=== PATIENT | female | born 1960 | race Caucasian/White ===

== ENCOUNTER 2017-04-30 11:09 | Emergency (ER) | payer OTHER ==
[~2017-04-30] VITALS: Ht 160 cm; Wt 68.0 kg
[~2017-04-30 11:09] MED LIST: ALBU90OI INH; BENZ100A PO; CHLO25 PO; CITA20; CLON.5; CLON1 PO; DIPH50 PO; DIVA250EC PO; DIVA500ER PO; Klonopin0.5 MG PO; LAMO25 PO; LEVSOD50 PO; LIOT25 PO; Mucinex600 MG PO; PRED20 PO; Prednisone20 MG PO; Zithromax250 MG PO; Zofran4 MG PO
[2017-04-30] MEDS ORDERED: Norco 5-325 Ta1 EACH PO (13:55)
[2017-04-30] MEDS ORDERED: Zofran Odt4 MG SL (13:55)
== END 2017-04-30 14:10 | disposition home or self-care (01) ==
LOC: ER 11:09
DX: S20.212A Contusion of left front wall of thorax, initial encounter (principal); S70.02XA Contusion of left hip, initial encounter; S00.83XA Contusion of other part of head, initial encounter; F10.20 Alcohol dependence, uncomplicated; F17.210 Nicotine dependence, cigarettes, uncomplicated; Z79.899 Other long term (current) drug therapy; Z79.52 Long term (current) use of systemic steroids; Z90.710 Acquired absence of both cervix and uterus; W19.XXXA Unspecified fall, initial encounter; Y92.009 Unspecified place in unspecified non-institutional (private) residence as the place of occurrence of the external cause
CPT/HCPCS: 70450; 71046; 72125; 99284

== ENCOUNTER → 2017-08-16 | Outpatient (CLI) | payer OTHER ==
[~2017-08-16] MED LIST changes: +Norco 5-325 Ta1 EACH PO; +Zofran Odt4 MG SL
[2017-08-16 12:17] LABS: BASOPHILS ABSOLUTE AUTO 0.09 K/mm3 (0.00-0.23); BASOPHILS PERCENT AUTO 1 % (0-2); EOSINOPHILS ABSOLUTE AUTO 0.15 K/mm3 (0.00-0.68); EOSINOPHILS PERCENT AUTO 2 % (0-6); Hematocrit 40.7 % (33.0-51.0); Hemoglobin 14.4 g/dL (11.5-16.0); IMMATURE GRAN ABSOLUTE AUTO 0.04 K/mm3 (0.00-0.10); IMMATURE GRAN PERCENT AUTO 1 % (0-1); LYMPHOCYTES ABSOLUTE AUTO 1.99 K/mm3 (0.84-5.20); LYMPHOCYTES PERCENT AUTO 23 % (21-46); MONOCYTES ABSOLUTE AUTO 0.57 K/mm3 (0.16-1.47); MONOCYTES PERCENT AUTO 7 % (4-13); Mean Corpuscular HGB 36.1 pg (26.0-34.0); Mean Corpuscular HGB Conc 35.4 g/dL (31.5-36.5); Mean Corpuscular Volume 102 fL (80-100); Mean Platelet Volume 10.1 fL (9.1-12.4); NEUTROPHILS ABSOLUTE AUTO 5.96 K/mm3 (1.96-9.15); NEUTROPHILS PERCENT AUTO 68 % (41-73); Platelet Count 308 K/mm3 (150-400); RDW Coefficient Variation 13.8 % (11.7-14.2); RDW Standard Deviation 51.8 fL (35.1-46.3); Red Blood Cell Count 3.99 M/mm3 (3.80-5.20)
[2017-08-16 12:39] LABS: Alanine Aminotransfer (ALT/SGP 88 U/L (12-78); Albumin, Blood 3.9 g/dL (3.4-5.0); Alk Phos 145 U/L (40-126); Anion Gap 14 mmol/L (6-16); Aspartate Aminotrans (AST/SGOT 142 U/L (12-37); Bilirubin, Total 0.8 mg/dL (0.1-1.0); Blood Urea Nitrogen 12 mg/dL (8-24); Bun/Creatinine Ratio 21.4 (12.0-20.0); CO2, Blood 25 mmol/L (21-32); Calcium, Blood 8.8 mg/dL (8.5-10.1); Chloride, Blood 102 mmol/L (98-108); Creatinine, Blood 0.56 mg/dL (0.40-1.00); Glomerular Filtration Rate >60 (60-); Glucose, Blood 116 mg/dL (70-99); Potassium, Blood 2.8 mmol/L (3.5-5.5); Sodium, Blood 141 mmol/L (136-145); Thyroid Stimulating Hormone 2.521 uIU/mL (0.360-4.800); Total Protein, Blood 7.9 g/dL (6.4-8.2)
== END | disposition home or self-care (01) ==
LOC: LAB EV 12:11 → LAB SHORT 12:11
PROVIDERS: Physician Assistant
DX: E03.9 Hypothyroidism, unspecified (principal)
CPT/HCPCS: 80053; 84443; 85025

== ENCOUNTER → 2017-12-09 | Outpatient (CLI) | payer OTHER ==
[2017-12-09 14:16] LABS: BASOPHILS PERCENT AUTO 2 % (0-2); EOSINOPHILS ABSOLUTE AUTO 0.06 K/mm3 (0.00-0.68); EOSINOPHILS PERCENT AUTO 1 % (0-6); Hematocrit 39.3 % (33.0-51.0); Hemoglobin 13.7 g/dL (11.5-16.0); IMMATURE GRAN ABSOLUTE AUTO 0.04 K/mm3 (0.00-0.10); IMMATURE GRAN PERCENT AUTO 1 % (0-1); LYMPHOCYTES ABSOLUTE AUTO 1.01 K/mm3 (0.84-5.20); LYMPHOCYTES PERCENT AUTO 19 % (21-46); MONOCYTES ABSOLUTE AUTO 0.27 K/mm3 (0.16-1.47); MONOCYTES PERCENT AUTO 5 % (4-13); Mean Corpuscular HGB 34.6 pg (26.0-34.0); Mean Corpuscular HGB Conc 34.9 g/dL (31.5-36.5); Mean Corpuscular Volume 99 fL (80-100); Mean Platelet Volume 10.4 fL (9.1-12.4); NEUTROPHILS ABSOLUTE AUTO 3.86 K/mm3 (1.96-9.15); NEUTROPHILS PERCENT AUTO 72 % (41-73); Platelet Count 212 K/mm3 (150-400); RDW Coefficient Variation 14.1 % (11.7-14.2); RDW Standard Deviation 51.4 fL (35.1-46.3); Red Blood Cell Count 3.96 M/mm3 (3.80-5.20); White Blood Cell Count 5.34 K/mm3 (4.00-11.30)
[2017-12-09 15:52] LABS: Albumin, Blood 4.5 g/dL (3.4-5.0); Albumin/Globulin Ratio 1.1 (0.8-1.8); Bilirubin, Total 1.1 mg/dL (0.1-1.0); Bun/Creatinine Ratio 28.2 (12.0-20.0); Calcium, Blood 8.8 mg/dL (8.5-10.1); Creatinine, Blood 1.03 mg/dL (0.40-1.00); Potassium, Blood 3.1 mmol/L (3.5-5.5); Total Protein, Blood 8.5 g/dL (6.4-8.2)
== END | disposition home or self-care (01) ==
LOC: LAB EV 14:12 → LAB SHORT 14:12
PROVIDERS: General Practice
DX: T50.905A Adverse effect of unspecified drugs, medicaments and biological substances, initial encounter (principal); J02.9 Acute pharyngitis, unspecified
CPT/HCPCS: 80053; 85025; 87070

== ENCOUNTER 2018-01-27 10:24 | Inpatient (IN) | payer OTHER ==
[~2018-01-27] VITALS: Ht 160 cm; Wt 52.5 kg
[2018-01-27 10:47] LABS: Hematocrit 26.7 % (33.0-51.0); Hemoglobin 9.5 g/dL (11.5-16.0); Mean Corpuscular HGB 40.1 pg (26.0-34.0); Mean Corpuscular HGB Conc 35.6 g/dL (31.5-36.5); Mean Corpuscular Volume 113 fL (80-100); Mean Platelet Volume 10.8 fL (9.1-12.4); NRBC ABSOLUTE 0.34 K/mm3 (0.00-0.02); NRBC Auto 1.4 /100 WBC (0.0-0.2); Platelet Count 436 K/mm3 (150-400); RDW Coefficient Variation 22.4 % (11.7-14.2); RDW Standard Deviation 88.2 fL (35.1-46.3); Red Blood Cell Count 2.37 M/mm3 (3.80-5.20); White Blood Cell Count 24.32 K/mm3 (4.00-11.30)
[2018-01-27 11:07] LABS: BAND PERCENT MAN 1 % (0-8); BASOPHILS PERCENT MAN 0 % (0-2); EOSINOPHILS PERCENT MAN 0 % (0-6); LYMPHOCYTES ABSOLUTE MAN 0.97 K/mm3 (0.84-5.20); LYMPHOCYTES PERCENT MAN 4 % (21-46); METAMYELOCYTE ABSOLUTE MAN 0.24 K/mm3 (0.00-0.00); METAMYELOCYTE PERCENT MAN 1 % (0-0); MONOCYTES ABSOLUTE MAN 0.97 K/mm3 (0.16-1.47); MONOCYTES PERCENT MAN 4 % (4-13); NEUTROPHILS ABSOLUTE MAN 22.13 K/mm3 (1.96-9.15); SEG NEUTROPHILS PERCENT MAN 90 % (41-73); TOTAL CELLS COUNTED 100
[2018-01-27 11:08] LABS: Alanine Aminotransfer (ALT/SGP 160 U/L (12-78); Albumin, Blood 3.1 g/dL (3.4-5.0); Albumin/Globulin Ratio 0.8 (0.8-1.8); Alk Phos 348 U/L (50-136); Anion Gap 22 mmol/L (6-16); Aspartate Aminotrans (AST/SGOT 386 U/L (12-37); Blood Urea Nitrogen 41 mg/dL (8-24); Bun/Creatinine Ratio 22.3 (12.0-20.0); CO2, Blood 23 mmol/L (21-32); Calcium, Blood 10.9 mg/dL (8.5-10.1); Chloride, Blood 84 mmol/L (98-108); Creatinine, Blood 1.84 mg/dL (0.40-1.00); Ethanol (Alcohol), Blood, Med <3 mg/dL; Globulin, Blood 3.8 g/dL (2.2-4.0); Glomerular Filtration Rate 30 (60-); Glucose, Blood 129 mg/dL (70-99); Potassium, Blood 2.8 mmol/L (3.5-5.5); Sodium, Blood 129 mmol/L (136-145); Total Protein, Blood 6.9 g/dL (6.4-8.2)
[2018-01-27 11:22] LABS: Bilirubin, Total 28.4 mg/dL (0.1-1.0)
[2018-01-27 11:29] LABS: Acetaminophen, Random <2.0 ug/mL (10.0-30.0); Salicylate <1.7 mg/dL (2.8-20.0)
[2018-01-27 12:38] LABS: Source, Urine Clean Catch
[2018-01-27 12:44] LABS: Blood, Urine 4+ (Neg); Glucose Qualitative, Urine Neg (Neg); Ketones, Urine 1+ (Neg); Leukocyte Esterase, Urine 2+ (Neg); Nitrite, Urine Neg (Neg); Protein, Urine 3+ (Neg); Urobilinogen, Urine 3+ (Normal)
[2018-01-27 12:52] LABS: Appearance, Urine Cloudy (Clear); Bilirubin, Urine 3+ (Neg); Color, Urine Amber (P-Yellow)
[2018-01-27 12:55] LABS: Squamous Epithelial Cells Few /hpf (Few); White Blood Cells, Urine 25-50 /hpf (0-5)
[2018-01-27 12:56] LABS: Bacteria Many /hpf
[2018-01-27 13:03] LABS: U Amphetamine Screen Not Detected; U Barbituate Screen Not Detected; U Benzodiazapine Screen Not Detected; U Buprenorphine Screen Not Detected; U Cannabinoids Screen Not Detected; U Cocaine Screen Not Detected; U Methadone Screen Not Detected; U Methamphetamine Screen Not Detected; U Opiates Screen Not Detected; U Oxycodone Screen Not Detected; U Phencyclidine Screen Not Detected; U Propoxyphene Screen Not Detected
[2018-01-27 15:38] LABS: Albumin, Blood 3.1 g/dL (3.4-5.0); Anion Gap 24 mmol/L (6-16); Blood Urea Nitrogen 42 mg/dL (8-24); CO2, Blood 21 mmol/L (21-32); Calcium, Blood 10.9 mg/dL (8.5-10.1); Chloride, Blood 84 mmol/L (98-108); Creatinine, Blood 1.75 mg/dL (0.40-1.00); Glomerular Filtration Rate 32 (60-); Glucose, Blood 125 mg/dL (70-99); Phosphorus, Blood 5.4 mg/dL (2.5-4.9); Potassium, Blood 2.9 mmol/L (3.5-5.5); Sodium, Blood 129 mmol/L (136-145)
[2018-01-27 16:07] LABS: PCO2 Arterial 36.8 mmHg (35-45); PO2 Arterial 68.4 mmHg (80-100); pH Blood Arterial 7.51 (7.35-7.45)
[2018-01-27 16:15] LABS: Hematocrit 23.5 % (33.0-51.0); Hemoglobin 8.5 g/dL (11.5-16.0)
[2018-01-27 16:36] LABS: Percent Saturation 86.5 % (15.0-50.0)
[2018-01-27 17:14] LABS: International Normalized Ratio 1.26; Prothrombin Time Results 12.8 Sec (9.7-11.5)
[2018-01-27 17:54] LABS: Albumin, Blood 2.7 g/dL (3.4-5.0); Albumin/Globulin Ratio 0.8 (0.8-1.8); Bun/Creatinine Ratio 26.1 (12.0-20.0); Calcium, Blood 9.3 mg/dL (8.5-10.1); Creatinine, Blood 1.57 mg/dL (0.40-1.00); Globulin, Blood 3.3 g/dL (2.2-4.0); Potassium, Blood 2.9 mmol/L (3.5-5.5)
[2018-01-27 17:58] LABS: Bilirubin, Total 23.4 mg/dL (0.1-1.0)
[2018-01-27 20:25] LABS: Albumin, Blood 2.5 g/dL (3.4-5.0); Anion Gap 14 mmol/L (6-16); Blood Urea Nitrogen 40 mg/dL (8-24); Bun/Creatinine Ratio 26.3 (12.0-20.0); CO2, Blood 27 mmol/L (21-32); Calcium, Blood 8.8 mg/dL (8.5-10.1); Chloride, Blood 92 mmol/L (98-108); Creatinine, Blood 1.52 mg/dL (0.40-1.00); Glomerular Filtration Rate 38 (60-); Glucose, Blood 79 mg/dL (70-99); Phosphorus, Blood 3.3 mg/dL (2.5-4.9); Potassium, Blood 2.9 mmol/L (3.5-5.5); Sodium, Blood 133 mmol/L (136-145)
[2018-01-28 03:54] LABS: BASOPHILS ABSOLUTE AUTO 0.07 K/mm3 (0.00-0.23); BASOPHILS PERCENT AUTO 0 % (0-2); EOSINOPHILS ABSOLUTE AUTO 0.12 K/mm3 (0.00-0.68); EOSINOPHILS PERCENT AUTO 1 % (0-6); Hematocrit 26.5 % (33.0-51.0); Hemoglobin 9.4 g/dL (11.5-16.0); IMMATURE GRAN ABSOLUTE AUTO 1.01 K/mm3 (0.00-0.10); IMMATURE GRAN PERCENT AUTO 5 % (0-1); LYMPHOCYTES ABSOLUTE AUTO 1.61 K/mm3 (0.84-5.20); LYMPHOCYTES PERCENT AUTO 8 % (21-46); MONOCYTES ABSOLUTE AUTO 0.78 K/mm3 (0.16-1.47); MONOCYTES PERCENT AUTO 4 % (4-13); Mean Corpuscular HGB 41.2 pg (26.0-34.0); Mean Corpuscular HGB Conc 35.5 g/dL (31.5-36.5); NEUTROPHILS ABSOLUTE AUTO 15.61 K/mm3 (1.96-9.15); NEUTROPHILS PERCENT AUTO 81 % (41-73); RDW Coefficient Variation 22.8 % (11.7-14.2); RDW Standard Deviation 90.5 fL (35.1-46.3); Red Blood Cell Count 2.28 M/mm3 (3.80-5.20)
[2018-01-28 04:03] LABS: Mean Corpuscular Volume 116 fL (80-100); Platelet Count 378 K/mm3 (150-400)
[2018-01-28 04:06] LABS: Albumin, Blood 2.5 g/dL (3.4-5.0); Albumin/Globulin Ratio 0.7 (0.8-1.8); Calcium, Blood 7.9 mg/dL (8.5-10.1); Creatinine, Blood 1.16 mg/dL (0.40-1.00); Globulin, Blood 3.5 g/dL (2.2-4.0); Potassium, Blood 4.2 mmol/L (3.5-5.5)
[2018-01-28 04:11] LABS: International Normalized Ratio 1.16; Prothrombin Time Results 11.8 Sec (9.7-11.5)
[2018-01-28 04:17] LABS: Bilirubin, Total 25.8 mg/dL (0.1-1.0)
[2018-01-28 04:52] LABS: PCO2 Arterial 49.1 mmHg (35-45); PO2 Arterial 117 mmHg (80-100); pH Blood Arterial 7.31 (7.35-7.45)
[2018-01-28 12:04] LABS: PCO2 Arterial 35.2 mmHg (35-45); PO2 Arterial 68.7 mmHg (80-100); pH Blood Arterial 7.47 (7.35-7.45)
[2018-01-28 12:27] LABS: Hematocrit 22.8 % (33.0-51.0); Hemoglobin 8.1 g/dL (11.5-16.0)
[2018-01-28 12:49] LABS: Albumin, Blood 2.5 g/dL (3.4-5.0); Anion Gap 12 mmol/L (6-16); Blood Urea Nitrogen 27 mg/dL (8-24); Bun/Creatinine Ratio 27.7 (12.0-20.0); CO2, Blood 25 mmol/L (21-32); Calcium, Blood 7.3 mg/dL (8.5-10.1); Chloride, Blood 98 mmol/L (98-108); Creatinine, Blood 0.98 mg/dL (0.40-1.00); Glomerular Filtration Rate >60 (60-); Glucose, Blood 132 mg/dL (70-99); Potassium, Blood 2.5 mmol/L (3.5-5.5); Sodium, Blood 135 mmol/L (136-145)
[2018-01-28 13:12] LABS: Phosphorus, Blood 0.4 mg/dL (2.5-4.9)
[2018-01-28 19:59] LABS: Albumin, Blood 2.5 g/dL (3.4-5.0); Anion Gap 12 mmol/L (6-16); Blood Urea Nitrogen 21 mg/dL (8-24); Bun/Creatinine Ratio 21.4 (12.0-20.0); CO2, Blood 27 mmol/L (21-32); Calcium, Blood 7.1 mg/dL (8.5-10.1); Chloride, Blood 96 mmol/L (98-108); Creatinine, Blood 0.98 mg/dL (0.40-1.00); Glomerular Filtration Rate >60 (60-); Glucose, Blood 106 mg/dL (70-99); Magnesium, Blood 1.5 mg/dL (1.6-2.4); Phosphorus, Blood 1.7 mg/dL (2.5-4.9); Sodium, Blood 135 mmol/L (136-145)
[2018-01-29 04:01] LABS: BASOPHILS PERCENT AUTO 1 % (0-2); EOSINOPHILS PERCENT AUTO 2 % (0-6); Hematocrit 23.8 % (33.0-51.0); Hemoglobin 8.5 g/dL (11.5-16.0); IMMATURE GRAN ABSOLUTE AUTO 1.72 K/mm3 (0.00-0.10); IMMATURE GRAN PERCENT AUTO 10 % (0-1); LYMPHOCYTES ABSOLUTE AUTO 1.57 K/mm3 (0.84-5.20); LYMPHOCYTES PERCENT AUTO 9 % (21-46); MONOCYTES ABSOLUTE AUTO 1.14 K/mm3 (0.16-1.47); MONOCYTES PERCENT AUTO 6 % (4-13); Mean Corpuscular HGB 41.5 pg (26.0-34.0); Mean Corpuscular HGB Conc 35.7 g/dL (31.5-36.5); Mean Corpuscular Volume 116 fL (80-100); Mean Platelet Volume 10.4 fL (9.1-12.4); NEUTROPHILS ABSOLUTE AUTO 12.94 K/mm3 (1.96-9.15); NEUTROPHILS PERCENT AUTO 73 % (41-73); NRBC ABSOLUTE 0.42 K/mm3 (0.00-0.02); NRBC Auto 2.4 /100 WBC (0.0-0.2); Platelet Count 358 K/mm3 (150-400); RDW Coefficient Variation 22.9 % (11.7-14.2); RDW Standard Deviation 92.5 fL (35.1-46.3); Red Blood Cell Count 2.05 M/mm3 (3.80-5.20); White Blood Cell Count 17.77 K/mm3 (4.00-11.30)
[2018-01-29 04:15] LABS: International Normalized Ratio 1.19; Prothrombin Time Results 12.1 Sec (9.7-11.5)
[2018-01-29 04:27] LABS: Alanine Aminotransfer (ALT/SGP 115 U/L (12-78); Albumin, Blood 2.3 g/dL (3.4-5.0); Albumin/Globulin Ratio 0.7 (0.8-1.8); Alk Phos 254 U/L (50-136); Anion Gap 13 mmol/L (6-16); Aspartate Aminotrans (AST/SGOT 282 U/L (12-37); Bilirubin, Total 23.7 mg/dL (0.1-1.0); Blood Urea Nitrogen 15 mg/dL (8-24); Bun/Creatinine Ratio 17.3 (12.0-20.0); CO2, Blood 25 mmol/L (21-32); Calcium, Blood 6.5 mg/dL (8.5-10.1); Chloride, Blood 98 mmol/L (98-108); Creatinine, Blood 0.87 mg/dL (0.40-1.00); Globulin, Blood 3.1 g/dL (2.2-4.0); Glomerular Filtration Rate >60 (60-); Glucose, Blood 112 mg/dL (70-99); Magnesium, Blood 1.9 mg/dL (1.6-2.4); Phosphorus, Blood 1.9 mg/dL (2.5-4.9); Potassium, Blood 2.6 mmol/L (3.5-5.5); Sodium, Blood 136 mmol/L (136-145); Total Protein, Blood 5.4 g/dL (6.4-8.2)
[2018-01-29 04:44] LABS: PCO2 Arterial 32.6 mmHg (35-45); PO2 Arterial 73.1 mmHg (80-100); pH Blood Arterial 7.51 (7.35-7.45)
[2018-01-29 05:27] LABS: BAND PERCENT MAN 11 % (0-8); BASOPHILS PERCENT MAN 0 % (0-2); EOSINOPHILS ABSOLUTE MAN 0.17 K/mm3 (0.00-0.68); EOSINOPHILS PERCENT MAN 1 % (0-6); LYMPHOCYTES ABSOLUTE MAN 1.59 K/mm3 (0.84-5.20); LYMPHOCYTES PERCENT MAN 9 % (21-46); MONOCYTES ABSOLUTE MAN 0.88 K/mm3 (0.16-1.47); MONOCYTES PERCENT MAN 5 % (4-13); MYELOCYTE ABSOLUTE MAN 0.35 K/mm3 (0.00-0.00); MYELOCYTE PERCENT MAN 2 % (0-0); NEUTROPHILS ABSOLUTE MAN 14.74 K/mm3 (1.96-9.15); SEG NEUTROPHILS PERCENT MAN 72 % (41-73); TOTAL CELLS COUNTED 100
[2018-01-30 03:41] LABS: Hematocrit 26.9 % (33.0-51.0); Hemoglobin 9.3 g/dL (11.5-16.0); Mean Corpuscular HGB 40.8 pg (26.0-34.0); Mean Corpuscular HGB Conc 34.6 g/dL (31.5-36.5); Mean Corpuscular Volume 118 fL (80-100); Mean Platelet Volume 10.2 fL (9.1-12.4); NRBC Auto 0.9 /100 WBC (0.0-0.2); Platelet Count 344 K/mm3 (150-400); RDW Coefficient Variation 23.6 % (11.7-14.2); RDW Standard Deviation 97.2 fL (35.1-46.3); Red Blood Cell Count 2.28 M/mm3 (3.80-5.20); White Blood Cell Count 21.19 K/mm3 (4.00-11.30)
[2018-01-30 04:04] LABS: BAND PERCENT MAN 6 % (0-8); BASOPHILS ABSOLUTE MAN 0.21 K/mm3 (0.00-0.23); BASOPHILS PERCENT MAN 1 % (0-2); EOSINOPHILS ABSOLUTE MAN 0.42 K/mm3 (0.00-0.68); EOSINOPHILS PERCENT MAN 2 % (0-6); LYMPHOCYTES ABSOLUTE MAN 1.48 K/mm3 (0.84-5.20); LYMPHOCYTES PERCENT MAN 7 % (21-46); METAMYELOCYTE ABSOLUTE MAN 0.42 K/mm3 (0.00-0.00); METAMYELOCYTE PERCENT MAN 2 % (0-0); MONOCYTES ABSOLUTE MAN 1.05 K/mm3 (0.16-1.47); MONOCYTES PERCENT MAN 5 % (4-13); MYELOCYTE ABSOLUTE MAN 0.42 K/mm3 (0.00-0.00); MYELOCYTE PERCENT MAN 2 % (0-0); NEUTROPHILS ABSOLUTE MAN 17.16 K/mm3 (1.96-9.15); SEG NEUTROPHILS PERCENT MAN 75 % (41-73); TOTAL CELLS COUNTED 100
[2018-01-30 04:05] LABS: International Normalized Ratio 1.16; Prothrombin Time Results 11.8 Sec (9.7-11.5)
[2018-01-30 04:18] LABS: Alanine Aminotransfer (ALT/SGP 95 U/L (12-78); Albumin, Blood 2.1 g/dL (3.4-5.0); Albumin/Globulin Ratio 0.6 (0.8-1.8); Alk Phos 236 U/L (50-136); Anion Gap 13 mmol/L (6-16); Aspartate Aminotrans (AST/SGOT 192 U/L (12-37); Bilirubin, Total 22.7 mg/dL (0.1-1.0); Blood Urea Nitrogen 7 mg/dL (8-24); Bun/Creatinine Ratio 9.3 (12.0-20.0); CO2, Blood 24 mmol/L (21-32); Calcium, Blood 6.2 mg/dL (8.5-10.1); Chloride, Blood 103 mmol/L (98-108); Creatinine, Blood 0.75 mg/dL (0.40-1.00); Globulin, Blood 3.4 g/dL (2.2-4.0); Glomerular Filtration Rate >60 (60-); Glucose, Blood 125 mg/dL (70-99); Phosphorus, Blood 1.9 mg/dL (2.5-4.9); Potassium, Blood 2.6 mmol/L (3.5-5.5); Sodium, Blood 140 mmol/L (136-145); Total Protein, Blood 5.5 g/dL (6.4-8.2)
[2018-01-30 13:38] LABS: Anion Gap 11 mmol/L (6-16); Blood Urea Nitrogen 7 mg/dL (8-24); CO2, Blood 24 mmol/L (21-32); Calcium, Blood 5.8 mg/dL (8.5-10.1); Chloride, Blood 102 mmol/L (98-108); Creatinine, Blood 0.78 mg/dL (0.40-1.00); Glomerular Filtration Rate >60 (60-); Glucose, Blood 103 mg/dL (70-99); Potassium, Blood 2.8 mmol/L (3.5-5.5); Sodium, Blood 137 mmol/L (136-145)
[2018-01-31 04:59] LABS: Hematocrit 26.3 % (33.0-51.0); Hemoglobin 8.9 g/dL (11.5-16.0); Mean Corpuscular HGB 40.1 pg (26.0-34.0); Mean Corpuscular HGB Conc 33.8 g/dL (31.5-36.5); Mean Corpuscular Volume 119 fL (80-100); Mean Platelet Volume 10.7 fL (9.1-12.4); NRBC ABSOLUTE 0.16 K/mm3 (0.00-0.02); NRBC Auto 0.9 /100 WBC (0.0-0.2); Platelet Count 294 K/mm3 (150-400); RDW Coefficient Variation 23.9 % (11.7-14.2); RDW Standard Deviation 98.8 fL (35.1-46.3); Red Blood Cell Count 2.22 M/mm3 (3.80-5.20); White Blood Cell Count 18.37 K/mm3 (4.00-11.30)
[2018-01-31 05:16] LABS: International Normalized Ratio 1.19; Prothrombin Time Results 12.1 Sec (9.7-11.5)
[2018-01-31 05:18] LABS: Alanine Aminotransfer (ALT/SGP 67 U/L (12-78); Albumin, Blood 1.7 g/dL (3.4-5.0); Albumin/Globulin Ratio 0.5 (0.8-1.8); Alk Phos 203 U/L (50-136); Anion Gap 11 mmol/L (6-16); Aspartate Aminotrans (AST/SGOT 117 U/L (12-37); Bilirubin, Total 19.9 mg/dL (0.1-1.0); Blood Urea Nitrogen 6 mg/dL (8-24); Bun/Creatinine Ratio 7.8 (12.0-20.0); CO2, Blood 22 mmol/L (21-32); Calcium, Blood 6.2 mg/dL (8.5-10.1); Chloride, Blood 108 mmol/L (98-108); Creatinine, Blood 0.77 mg/dL (0.40-1.00); Globulin, Blood 3.3 g/dL (2.2-4.0); Glomerular Filtration Rate >60 (60-); Glucose, Blood 99 mg/dL (70-99); Phosphorus, Blood 2.1 mg/dL (2.5-4.9); Potassium, Blood 3.1 mmol/L (3.5-5.5); Sodium, Blood 141 mmol/L (136-145)
[2018-01-31 05:33] LABS: BAND PERCENT MAN 9 % (0-8); BASOPHILS PERCENT MAN 0 % (0-2); EOSINOPHILS ABSOLUTE MAN 0.55 K/mm3 (0.00-0.68); EOSINOPHILS PERCENT MAN 3 % (0-6); LYMPHOCYTES ABSOLUTE MAN 0.91 K/mm3 (0.84-5.20); LYMPHOCYTES PERCENT MAN 5 % (21-46); METAMYELOCYTE ABSOLUTE MAN 0.73 K/mm3 (0.00-0.00); METAMYELOCYTE PERCENT MAN 4 % (0-0); MONOCYTES ABSOLUTE MAN 0.73 K/mm3 (0.16-1.47); MONOCYTES PERCENT MAN 4 % (4-13); MYELOCYTE ABSOLUTE MAN 0.36 K/mm3 (0.00-0.00); MYELOCYTE PERCENT MAN 2 % (0-0); NEUTROPHILS ABSOLUTE MAN 15.06 K/mm3 (1.96-9.15); SEG NEUTROPHILS PERCENT MAN 73 % (41-73); TOTAL CELLS COUNTED 100
[2018-01-31 09:35] LABS: Vancomycin, Trough 11.9 ug/mL (5.0-10.0)
[2018-01-31 20:46] LABS: Albumin, Blood 1.7 g/dL (3.4-5.0); Anion Gap 12 mmol/L (6-16); Blood Urea Nitrogen 6 mg/dL (8-24); Bun/Creatinine Ratio 8.2 (12.0-20.0); CO2, Blood 20 mmol/L (21-32); Calcium, Blood 7.3 mg/dL (8.5-10.1); Chloride, Blood 109 mmol/L (98-108); Creatinine, Blood 0.74 mg/dL (0.40-1.00); Glomerular Filtration Rate >60 (60-); Glucose, Blood 99 mg/dL (70-99); Magnesium, Blood 1.5 mg/dL (1.6-2.4); Phosphorus, Blood 2.6 mg/dL (2.5-4.9); Potassium, Blood 3.3 mmol/L (3.5-5.5); Sodium, Blood 141 mmol/L (136-145)
[2018-02-01 04:25] LABS: Hematocrit 26.8 % (33.0-51.0); Hemoglobin 8.9 g/dL (11.5-16.0); Mean Corpuscular HGB 40.1 pg (26.0-34.0); Mean Corpuscular HGB Conc 33.2 g/dL (31.5-36.5); Mean Corpuscular Volume 121 fL (80-100); Mean Platelet Volume 10.9 fL (9.1-12.4); NRBC ABSOLUTE 0.07 K/mm3 (0.00-0.02); NRBC Auto 0.4 /100 WBC (0.0-0.2); Platelet Count 293 K/mm3 (150-400); RDW Coefficient Variation 23.2 % (11.7-14.2); RDW Standard Deviation 100.5 fL (35.1-46.3); Red Blood Cell Count 2.22 M/mm3 (3.80-5.20); White Blood Cell Count 18.49 K/mm3 (4.00-11.30)
[2018-02-01 04:50] LABS: BAND PERCENT MAN 13 % (0-8); BASOPHILS PERCENT MAN 0 % (0-2); EOSINOPHILS ABSOLUTE MAN 0.55 K/mm3 (0.00-0.68); EOSINOPHILS PERCENT MAN 3 % (0-6); LYMPHOCYTES ABSOLUTE MAN 0.92 K/mm3 (0.84-5.20); LYMPHOCYTES PERCENT MAN 5 % (21-46); METAMYELOCYTE ABSOLUTE MAN 0.73 K/mm3 (0.00-0.00); METAMYELOCYTE PERCENT MAN 4 % (0-0); MONOCYTES ABSOLUTE MAN 1.29 K/mm3 (0.16-1.47); MONOCYTES PERCENT MAN 7 % (4-13); MYELOCYTE ABSOLUTE MAN 0.18 K/mm3 (0.00-0.00); MYELOCYTE PERCENT MAN 1 % (0-0); NEUTROPHILS ABSOLUTE MAN 14.79 K/mm3 (1.96-9.15); SEG NEUTROPHILS PERCENT MAN 67 % (41-73); TOTAL CELLS COUNTED 100
[2018-02-01 05:06] LABS: Alanine Aminotransfer (ALT/SGP 54 U/L (12-78); Albumin, Blood 1.7 g/dL (3.4-5.0); Albumin/Globulin Ratio 0.5 (0.8-1.8); Alk Phos 192 U/L (50-136); Anion Gap 12 mmol/L (6-16); Aspartate Aminotrans (AST/SGOT 96 U/L (12-37); Bilirubin, Total 19.7 mg/dL (0.1-1.0); Blood Urea Nitrogen 6 mg/dL (8-24); Bun/Creatinine Ratio 8.3 (12.0-20.0); CO2, Blood 19 mmol/L (21-32); Calcium, Blood 6.8 mg/dL (8.5-10.1); Chloride, Blood 110 mmol/L (98-108); Creatinine, Blood 0.73 mg/dL (0.40-1.00); Globulin, Blood 3.3 g/dL (2.2-4.0); Glomerular Filtration Rate >60 (60-); Glucose, Blood 89 mg/dL (70-99); Magnesium, Blood 1.9 mg/dL (1.6-2.4); Phosphorus, Blood 1.9 mg/dL (2.5-4.9); Potassium, Blood 3.7 mmol/L (3.5-5.5); Sodium, Blood 141 mmol/L (136-145)
[2018-02-01 22:02] LABS: Albumin, Blood 2.2 g/dL (3.4-5.0); Anion Gap 11 mmol/L (6-16); Blood Urea Nitrogen 6 mg/dL (8-24); Bun/Creatinine Ratio 8.5 (12.0-20.0); CO2, Blood 21 mmol/L (21-32); Calcium, Blood 7.6 mg/dL (8.5-10.1); Chloride, Blood 111 mmol/L (98-108); Creatinine, Blood 0.71 mg/dL (0.40-1.00); Glomerular Filtration Rate >60 (60-); Glucose, Blood 102 mg/dL (70-99); Magnesium, Blood 1.7 mg/dL (1.6-2.4); Potassium, Blood 3.3 mmol/L (3.5-5.5); Sodium, Blood 143 mmol/L (136-145)
[2018-02-02 04:05] LABS: Hematocrit 25.6 % (33.0-51.0); Hemoglobin 8.4 g/dL (11.5-16.0); Mean Corpuscular HGB 40.6 pg (26.0-34.0); Mean Corpuscular HGB Conc 32.8 g/dL (31.5-36.5); Mean Platelet Volume 10.7 fL (9.1-12.4); NRBC ABSOLUTE 0.05 K/mm3 (0.00-0.02); NRBC Auto 0.3 /100 WBC (0.0-0.2); Platelet Count 297 K/mm3 (150-400); RDW Coefficient Variation 22.7 % (11.7-14.2); RDW Standard Deviation 101.2 fL (35.1-46.3); Red Blood Cell Count 2.07 M/mm3 (3.80-5.20); White Blood Cell Count 17.22 K/mm3 (4.00-11.30)
[2018-02-02 04:10] LABS: Mean Corpuscular Volume 124 fL (80-100)
[2018-02-02 04:29] LABS: BAND PERCENT MAN 11 % (0-8); BASOPHILS PERCENT MAN 0 % (0-2); EOSINOPHILS ABSOLUTE MAN 0.34 K/mm3 (0.00-0.68); EOSINOPHILS PERCENT MAN 2 % (0-6); LYMPHOCYTES ABSOLUTE MAN 1.03 K/mm3 (0.84-5.20); LYMPHOCYTES PERCENT MAN 6 % (21-46); METAMYELOCYTE ABSOLUTE MAN 0.51 K/mm3 (0.00-0.00); METAMYELOCYTE PERCENT MAN 3 % (0-0); MONOCYTES ABSOLUTE MAN 1.72 K/mm3 (0.16-1.47); MONOCYTES PERCENT MAN 10 % (4-13); MYELOCYTE ABSOLUTE MAN 0.34 K/mm3 (0.00-0.00); MYELOCYTE PERCENT MAN 2 % (0-0); NEUTROPHILS ABSOLUTE MAN 13.25 K/mm3 (1.96-9.15); SEG NEUTROPHILS PERCENT MAN 66 % (41-73); TOTAL CELLS COUNTED 100
[2018-02-02 04:30] LABS: Alanine Aminotransfer (ALT/SGP 43 U/L (12-78); Albumin, Blood 2.1 g/dL (3.4-5.0); Albumin/Globulin Ratio 0.7 (0.8-1.8); Alk Phos 182 U/L (50-136); Anion Gap 11 mmol/L (6-16); Aspartate Aminotrans (AST/SGOT 82 U/L (12-37); Bilirubin, Total 21.2 mg/dL (0.1-1.0); Blood Urea Nitrogen 6 mg/dL (8-24); Bun/Creatinine Ratio 8.9 (12.0-20.0); CO2, Blood 19 mmol/L (21-32); Chloride, Blood 110 mmol/L (98-108); Creatinine, Blood 0.67 mg/dL (0.40-1.00); Glomerular Filtration Rate >60 (60-); Glucose, Blood 107 mg/dL (70-99); Magnesium, Blood 1.5 mg/dL (1.6-2.4); Phosphorus, Blood 2.8 mg/dL (2.5-4.9); Potassium, Blood 3.4 mmol/L (3.5-5.5); Sodium, Blood 140 mmol/L (136-145); Total Protein, Blood 5.1 g/dL (6.4-8.2)
[2018-02-02 09:34] LABS: Vancomycin, Trough 10.2 ug/mL (5.0-10.0)
[2018-02-03 04:12] LABS: Hematocrit 25.2 % (33.0-51.0); Hemoglobin 8.4 g/dL (11.5-16.0); Mean Corpuscular HGB Conc 33.3 g/dL (31.5-36.5); Mean Corpuscular Volume 123 fL (80-100); Mean Platelet Volume 10.8 fL (9.1-12.4); NRBC ABSOLUTE 0.03 K/mm3 (0.00-0.02); NRBC Auto 0.2 /100 WBC (0.0-0.2); Platelet Count 322 K/mm3 (150-400); RDW Coefficient Variation 22.3 % (11.7-14.2); RDW Standard Deviation 98.9 fL (35.1-46.3); Red Blood Cell Count 2.05 M/mm3 (3.80-5.20)
[2018-02-03 04:38] LABS: Alanine Aminotransfer (ALT/SGP 46 U/L (12-78); Albumin, Blood 1.9 g/dL (3.4-5.0); Albumin/Globulin Ratio 0.6 (0.8-1.8); Alk Phos 202 U/L (50-136); Anion Gap 11 mmol/L (6-16); Aspartate Aminotrans (AST/SGOT 100 U/L (12-37); BAND PERCENT MAN 16 % (0-8); BASOPHILS PERCENT MAN 0 % (0-2); Bilirubin, Total 21.4 mg/dL (0.1-1.0); Blood Urea Nitrogen 9 mg/dL (8-24); CO2, Blood 18 mmol/L (21-32); Calcium, Blood 8.4 mg/dL (8.5-10.1); Chloride, Blood 111 mmol/L (98-108); Creatinine, Blood 0.69 mg/dL (0.40-1.00); EOSINOPHILS PERCENT MAN 0 % (0-6); Globulin, Blood 3.3 g/dL (2.2-4.0); Glomerular Filtration Rate >60 (60-); Glucose, Blood 119 mg/dL (70-99); LYMPHOCYTES PERCENT MAN 9 % (21-46); METAMYELOCYTE PERCENT MAN 3 % (0-0); MONOCYTES PERCENT MAN 3 % (4-13); MYELOCYTE PERCENT MAN 1 % (0-0); Magnesium, Blood 1.8 mg/dL (1.6-2.4); Phosphorus, Blood 2.2 mg/dL (2.5-4.9); Potassium, Blood 3.3 mmol/L (3.5-5.5); SEG NEUTROPHILS PERCENT MAN 68 % (41-73); Sodium, Blood 140 mmol/L (136-145); TOTAL CELLS COUNTED 100; Total Protein, Blood 5.2 g/dL (6.4-8.2)
[2018-02-03 20:16] LABS: Magnesium, Blood 2.2 mg/dL (1.6-2.4)
[2018-02-03 20:18] LABS: Potassium, Blood 3.7 mmol/L (3.5-5.5)
[2018-02-03 20:20] LABS: Phosphorus, Blood 5.5 mg/dL (2.5-4.9)
[2018-02-04 04:26] LABS: Hematocrit 25.2 % (33.0-51.0); Hemoglobin 8.3 g/dL (11.5-16.0); Mean Corpuscular HGB 40.3 pg (26.0-34.0); Mean Corpuscular HGB Conc 32.9 g/dL (31.5-36.5); Mean Corpuscular Volume 122 fL (80-100); Mean Platelet Volume 11.1 fL (9.1-12.4); NRBC ABSOLUTE 0.12 K/mm3 (0.00-0.02); NRBC Auto 0.5 /100 WBC (0.0-0.2); Platelet Count 400 K/mm3 (150-400); RDW Coefficient Variation 22.5 % (11.7-14.2); RDW Standard Deviation 99.2 fL (35.1-46.3); Red Blood Cell Count 2.06 M/mm3 (3.80-5.20); White Blood Cell Count 24.51 K/mm3 (4.00-11.30)
[2018-02-04 04:46] LABS: Magnesium, Blood 2.1 mg/dL (1.6-2.4); Phosphorus, Blood 4.8 mg/dL (2.5-4.9)
[2018-02-04 04:47] LABS: Anion Gap 13 mmol/L (6-16); Blood Urea Nitrogen 16 mg/dL (8-24); Bun/Creatinine Ratio 17.5 (12.0-20.0); CO2, Blood 16 mmol/L (21-32); Calcium, Blood 9.2 mg/dL (8.5-10.1); Chloride, Blood 113 mmol/L (98-108); Creatinine, Blood 0.92 mg/dL (0.40-1.00); Glomerular Filtration Rate >60 (60-); Glucose, Blood 111 mg/dL (70-99); Phosphorus, Blood 4.8 mg/dL (2.5-4.9); Potassium, Blood 3.6 mmol/L (3.5-5.5); Sodium, Blood 142 mmol/L (136-145)
[2018-02-04 04:52] LABS: BAND PERCENT MAN 6 % (0-8); BASOPHILS PERCENT MAN 0 % (0-2); EOSINOPHILS ABSOLUTE MAN 0.24 K/mm3 (0.00-0.68); EOSINOPHILS PERCENT MAN 1 % (0-6); LYMPHOCYTES PERCENT MAN 9 % (21-46); METAMYELOCYTE ABSOLUTE MAN 0.98 K/mm3 (0.00-0.00); METAMYELOCYTE PERCENT MAN 4 % (0-0); MONOCYTES PERCENT MAN 0 % (4-13); MYELOCYTE ABSOLUTE MAN 0.73 K/mm3 (0.00-0.00); MYELOCYTE PERCENT MAN 3 % (0-0); NEUTROPHILS ABSOLUTE MAN 20.34 K/mm3 (1.96-9.15); SEG NEUTROPHILS PERCENT MAN 77 % (41-73); TOTAL CELLS COUNTED 100
[2018-02-04 09:47] LABS: International Normalized Ratio 1.05; Prothrombin Time Results 10.8 Sec (9.7-11.5)
[2018-02-04 11:53] LABS: Source, Urine Catheter
[2018-02-04 12:04] LABS: Blood, Urine 2+ (Neg); Glucose Qualitative, Urine Neg (Neg); Ketones, Urine Neg (Neg); Leukocyte Esterase, Urine 1+ (Neg); Nitrite, Urine Neg (Neg); Protein, Urine 2+ (Neg); Specific Gravity, Urine 1.015 (1.003-1.022); Urobilinogen, Urine 3+ (Normal)
[2018-02-04 12:23] LABS: Bilirubin, Urine 3+ (Neg); Color, Urine Amber (P-Yellow)
[2018-02-04 12:27] LABS: Appearance, Urine Cloudy (Clear); Bacteria Few /hpf; Mucus Light (0-Heavy); Squamous Epithelial Cells Mod /hpf (Few)
[2018-02-05 04:58] LABS: Hematocrit 25.4 % (33.0-51.0); Hemoglobin 8.1 g/dL (11.5-16.0); Mean Corpuscular HGB 39.1 pg (26.0-34.0); Mean Corpuscular HGB Conc 31.9 g/dL (31.5-36.5); Mean Corpuscular Volume 123 fL (80-100); Mean Platelet Volume 11.2 fL (9.1-12.4); NRBC ABSOLUTE 0.16 K/mm3 (0.00-0.02); NRBC Auto 0.7 /100 WBC (0.0-0.2); Platelet Count 472 K/mm3 (150-400); RDW Standard Deviation 100.5 fL (35.1-46.3); Red Blood Cell Count 2.07 M/mm3 (3.80-5.20); White Blood Cell Count 23.99 K/mm3 (4.00-11.30)
[2018-02-05 05:03] LABS: PCO2 Arterial 23.9 mmHg (35-45); pH Blood Arterial 7.44 (7.35-7.45)
[2018-02-05 05:34] LABS: Alanine Aminotransfer (ALT/SGP 62 U/L (12-78); Albumin, Blood 1.7 g/dL (3.4-5.0); Albumin/Globulin Ratio 0.5 (0.8-1.8); Alk Phos 247 U/L (50-136); Anion Gap 11 mmol/L (6-16); Aspartate Aminotrans (AST/SGOT 146 U/L (12-37); Bilirubin, Total 20.4 mg/dL (0.1-1.0); Blood Urea Nitrogen 24 mg/dL (8-24); Bun/Creatinine Ratio 25.7 (12.0-20.0); CO2, Blood 16 mmol/L (21-32); Calcium, Blood 8.9 mg/dL (8.5-10.1); Chloride, Blood 115 mmol/L (98-108); Creatinine, Blood 0.94 mg/dL (0.40-1.00); Globulin, Blood 3.7 g/dL (2.2-4.0); Glomerular Filtration Rate >60 (60-); Glucose, Blood 113 mg/dL (70-99); Phosphorus, Blood 3.8 mg/dL (2.5-4.9); Potassium, Blood 3.5 mmol/L (3.5-5.5); Sodium, Blood 142 mmol/L (136-145); Total Protein, Blood 5.4 g/dL (6.4-8.2)
[2018-02-05 05:59] LABS: BAND PERCENT MAN 6 % (0-8); BASOPHILS ABSOLUTE MAN 0.23 K/mm3 (0.00-0.23); BASOPHILS PERCENT MAN 1 % (0-2); EOSINOPHILS ABSOLUTE MAN 0.47 K/mm3 (0.00-0.68); EOSINOPHILS PERCENT MAN 2 % (0-6); LYMPHOCYTES ABSOLUTE MAN 1.43 K/mm3 (0.84-5.20); LYMPHOCYTES PERCENT MAN 6 % (21-46); METAMYELOCYTE ABSOLUTE MAN 0.47 K/mm3 (0.00-0.00); METAMYELOCYTE PERCENT MAN 2 % (0-0); MONOCYTES ABSOLUTE MAN 0.47 K/mm3 (0.16-1.47); MONOCYTES PERCENT MAN 2 % (4-13); MYELOCYTE ABSOLUTE MAN 0.23 K/mm3 (0.00-0.00); MYELOCYTE PERCENT MAN 1 % (0-0); NEUTROPHILS ABSOLUTE MAN 20.63 K/mm3 (1.96-9.15); SEG NEUTROPHILS PERCENT MAN 80 % (41-73); TOTAL CELLS COUNTED 100
[2018-02-06 04:10] LABS: Hemoglobin 8.1 g/dL (11.5-16.0); NRBC ABSOLUTE 0.12 K/mm3 (0.00-0.02); NRBC Auto 0.5 /100 WBC (0.0-0.2); RDW Coefficient Variation 22.7 % (11.7-14.2)
[2018-02-06 04:20] LABS: Hematocrit 24.9 % (33.0-51.0); Mean Corpuscular HGB 39.9 pg (26.0-34.0); Mean Corpuscular HGB Conc 32.5 g/dL (31.5-36.5); Mean Corpuscular Volume 123 fL (80-100); Mean Platelet Volume 11.7 fL (9.1-12.4); Platelet Count 497 K/mm3 (150-400); RDW Standard Deviation 99.5 fL (35.1-46.3); Red Blood Cell Count 2.03 M/mm3 (3.80-5.20); White Blood Cell Count 22.73 K/mm3 (4.00-11.30)
[2018-02-06 04:24] LABS: Alanine Aminotransfer (ALT/SGP 61 U/L (12-78); Albumin, Blood 1.7 g/dL (3.4-5.0); Albumin/Globulin Ratio 0.4 (0.8-1.8); Alk Phos 248 U/L (50-136); Anion Gap 10 mmol/L (6-16); Aspartate Aminotrans (AST/SGOT 122 U/L (12-37); Bilirubin, Total 18.8 mg/dL (0.1-1.0); Blood Urea Nitrogen 32 mg/dL (8-24); Bun/Creatinine Ratio 33.5 (12.0-20.0); CO2, Blood 17 mmol/L (21-32); Calcium, Blood 8.2 mg/dL (8.5-10.1); Chloride, Blood 115 mmol/L (98-108); Creatinine, Blood 0.96 mg/dL (0.40-1.00); Glomerular Filtration Rate >60 (60-); Glucose, Blood 117 mg/dL (70-99); Phosphorus, Blood 3.9 mg/dL (2.5-4.9); Potassium, Blood 3.4 mmol/L (3.5-5.5); Sodium, Blood 142 mmol/L (136-145); Total Protein, Blood 5.7 g/dL (6.4-8.2)
[2018-02-06 04:36] LABS: BAND PERCENT MAN 21 % (0-8); BASOPHILS ABSOLUTE MAN 0.45 K/mm3 (0.00-0.23); BASOPHILS PERCENT MAN 2 % (0-2); EOSINOPHILS ABSOLUTE MAN 0.22 K/mm3 (0.00-0.68); EOSINOPHILS PERCENT MAN 1 % (0-6); LYMPHOCYTES ABSOLUTE MAN 2.72 K/mm3 (0.84-5.20); LYMPHOCYTES PERCENT MAN 12 % (21-46); MONOCYTES PERCENT MAN 4 % (4-13); NEUTROPHILS ABSOLUTE MAN 18.41 K/mm3 (1.96-9.15); SEG NEUTROPHILS PERCENT MAN 60 % (41-73); TOTAL CELLS COUNTED 100
[2018-02-06 05:08] LABS: PCO2 Arterial 24.8 mmHg (35-45); PO2 Arterial 55.7 mmHg (80-100); pH Blood Arterial 7.41 (7.35-7.45)
[2018-02-06 22:30] LABS: Vancomycin, Trough 19.3 ug/mL (5.0-10.0)
[2018-02-07 05:14] LABS: International Normalized Ratio 1.1; Prothrombin Time Results 11.3 Sec (9.7-11.5)
[2018-02-07 11:39] LABS: Hematocrit 25.8 % (33.0-51.0); Hemoglobin 8.1 g/dL (11.5-16.0); Mean Corpuscular HGB 39.3 pg (26.0-34.0); Mean Corpuscular HGB Conc 31.4 g/dL (31.5-36.5); Mean Corpuscular Volume 125 fL (80-100); Mean Platelet Volume 11.4 fL (9.1-12.4); NRBC ABSOLUTE 0.07 K/mm3 (0.00-0.02); NRBC Auto 0.3 /100 WBC (0.0-0.2); Platelet Count 473 K/mm3 (150-400); RDW Coefficient Variation 22.1 % (11.7-14.2); RDW Standard Deviation 100.4 fL (35.1-46.3); Red Blood Cell Count 2.06 M/mm3 (3.80-5.20); White Blood Cell Count 23.92 K/mm3 (4.00-11.30)
[2018-02-07 11:47] LABS: Anion Gap 9 mmol/L (6-16); Blood Urea Nitrogen 35 mg/dL (8-24); CO2, Blood 19 mmol/L (21-32); Calcium, Blood 8.1 mg/dL (8.5-10.1); Chloride, Blood 118 mmol/L (98-108); Creatinine, Blood 0.88 mg/dL (0.40-1.00); Glomerular Filtration Rate >60 (60-); Glucose, Blood 137 mg/dL (70-99); Potassium, Blood 3.2 mmol/L (3.5-5.5); Sodium, Blood 146 mmol/L (136-145)
[2018-02-07 12:28] LABS: BAND PERCENT MAN 5 % (0-8); BASOPHILS ABSOLUTE MAN 0.47 K/mm3 (0.00-0.23); BASOPHILS PERCENT MAN 2 % (0-2); EOSINOPHILS PERCENT MAN 0 % (0-6); LYMPHOCYTES ABSOLUTE MAN 0.95 K/mm3 (0.84-5.20); LYMPHOCYTES PERCENT MAN 4 % (21-46); MONOCYTES ABSOLUTE MAN 0.71 K/mm3 (0.16-1.47); MONOCYTES PERCENT MAN 3 % (4-13); MYELOCYTE ABSOLUTE MAN 0.23 K/mm3 (0.00-0.00); MYELOCYTE PERCENT MAN 1 % (0-0); NEUTROPHILS ABSOLUTE MAN 21.52 K/mm3 (1.96-9.15); SEG NEUTROPHILS PERCENT MAN 85 % (41-73); TOTAL CELLS COUNTED 100
[2018-02-07 13:45] LABS: PCO2 Arterial 28.3 mmHg (35-45); PO2 Arterial 78.8 mmHg (80-100)
[2018-02-08 04:28] LABS: Hematocrit 24.7 % (33.0-51.0); Mean Corpuscular HGB 39.6 pg (26.0-34.0); Mean Corpuscular HGB Conc 32.4 g/dL (31.5-36.5); Mean Platelet Volume 11.5 fL (9.1-12.4); NRBC ABSOLUTE 0.09 K/mm3 (0.00-0.02); NRBC Auto 0.4 /100 WBC (0.0-0.2); Platelet Count 512 K/mm3 (150-400); RDW Coefficient Variation 21.6 % (11.7-14.2); Red Blood Cell Count 2.02 M/mm3 (3.80-5.20); White Blood Cell Count 25.18 K/mm3 (4.00-11.30)
[2018-02-08 04:34] LABS: Mean Corpuscular Volume 122 fL (80-100)
[2018-02-08 04:47] LABS: Alanine Aminotransfer (ALT/SGP 47 U/L (12-78); Albumin, Blood 1.4 g/dL (3.4-5.0); Albumin/Globulin Ratio 0.3 (0.8-1.8); Alk Phos 244 U/L (50-136); Anion Gap 12 mmol/L (6-16); Aspartate Aminotrans (AST/SGOT 113 U/L (12-37); Bilirubin, Total 15.5 mg/dL (0.1-1.0); Blood Urea Nitrogen 38 mg/dL (8-24); Bun/Creatinine Ratio 42.1 (12.0-20.0); CO2, Blood 17 mmol/L (21-32); Calcium, Blood 7.9 mg/dL (8.5-10.1); Chloride, Blood 122 mmol/L (98-108); Globulin, Blood 4.3 g/dL (2.2-4.0); Glomerular Filtration Rate >60 (60-); Glucose, Blood 104 mg/dL (70-99); Potassium, Blood 2.8 mmol/L (3.5-5.5); Sodium, Blood 151 mmol/L (136-145); Total Protein, Blood 5.7 g/dL (6.4-8.2)
[2018-02-08 05:00] LABS: BAND PERCENT MAN 18 % (0-8); BASOPHILS ABSOLUTE MAN 0.25 K/mm3 (0.00-0.23); BASOPHILS PERCENT MAN 1 % (0-2); EOSINOPHILS ABSOLUTE MAN 0.25 K/mm3 (0.00-0.68); EOSINOPHILS PERCENT MAN 1 % (0-6); LYMPHOCYTES ABSOLUTE MAN 0.75 K/mm3 (0.84-5.20); LYMPHOCYTES PERCENT MAN 3 % (21-46); METAMYELOCYTE PERCENT MAN 2 % (0-0); MONOCYTES PERCENT MAN 2 % (4-13); MYELOCYTE PERCENT MAN 2 % (0-0); NEUTROPHILS ABSOLUTE MAN 22.41 K/mm3 (1.96-9.15); SEG NEUTROPHILS PERCENT MAN 71 % (41-73); TOTAL CELLS COUNTED 100
[2018-02-08 05:00] LABS: PCO2 Arterial 26.6 mmHg (35-45); PO2 Arterial 62.3 mmHg (80-100); pH Blood Arterial 7.41 (7.35-7.45)
[2018-02-08 12:48] LABS: Potassium, Blood 3.1 mmol/L (3.5-5.5)
[2018-02-08 20:27] LABS: Alanine Aminotransfer (ALT/SGP 55 U/L (12-78); Albumin, Blood 1.6 g/dL (3.4-5.0); Albumin/Globulin Ratio 0.4 (0.8-1.8); Alk Phos 270 U/L (50-136); Anion Gap 11 mmol/L (6-16); Aspartate Aminotrans (AST/SGOT 136 U/L (12-37); Bilirubin, Total 14.8 mg/dL (0.1-1.0); Blood Urea Nitrogen 36 mg/dL (8-24); CO2, Blood 17 mmol/L (21-32); Calcium, Blood 8.1 mg/dL (8.5-10.1); Chloride, Blood 122 mmol/L (98-108); Creatinine, Blood 0.92 mg/dL (0.40-1.00); Globulin, Blood 4.5 g/dL (2.2-4.0); Glomerular Filtration Rate >60 (60-); Glucose, Blood 115 mg/dL (70-99); Potassium, Blood 3.4 mmol/L (3.5-5.5); Sodium, Blood 150 mmol/L (136-145); Total Protein, Blood 6.1 g/dL (6.4-8.2)
[2018-02-08 22:42] LABS: Vancomycin, Trough 29.1 ug/mL (5.0-10.0)
[2018-02-09 04:33] LABS: Hematocrit 24.6 % (33.0-51.0); Hemoglobin 7.7 g/dL (11.5-16.0); Mean Corpuscular HGB 37.9 pg (26.0-34.0); Mean Corpuscular HGB Conc 31.3 g/dL (31.5-36.5); Mean Corpuscular Volume 121 fL (80-100); Mean Platelet Volume 11.6 fL (9.1-12.4); NRBC ABSOLUTE 0.11 K/mm3 (0.00-0.02); NRBC Auto 0.4 /100 WBC (0.0-0.2); Platelet Count 552 K/mm3 (150-400); RDW Coefficient Variation 21.4 % (11.7-14.2); RDW Standard Deviation 95.1 fL (35.1-46.3); Red Blood Cell Count 2.03 M/mm3 (3.80-5.20); White Blood Cell Count 26.85 K/mm3 (4.00-11.30)
[2018-02-09 04:52] LABS: Alanine Aminotransfer (ALT/SGP 48 U/L (12-78); Albumin, Blood 1.4 g/dL (3.4-5.0); Albumin/Globulin Ratio 0.3 (0.8-1.8); Alk Phos 254 U/L (50-136); Anion Gap 14 mmol/L (6-16); Aspartate Aminotrans (AST/SGOT 132 U/L (12-37); BAND PERCENT MAN 19 % (0-8); BASOPHILS PERCENT MAN 0 % (0-2); Bilirubin, Total 13.9 mg/dL (0.1-1.0); Blood Urea Nitrogen 32 mg/dL (8-24); CO2, Blood 16 mmol/L (21-32); Calcium, Blood 7.6 mg/dL (8.5-10.1); Chloride, Blood 119 mmol/L (98-108); Creatinine, Blood 0.89 mg/dL (0.40-1.00); EOSINOPHILS PERCENT MAN 0 % (0-6); Globulin, Blood 4.3 g/dL (2.2-4.0); Glomerular Filtration Rate >60 (60-); Glucose, Blood 111 mg/dL (70-99); LYMPHOCYTES ABSOLUTE MAN 1.07 K/mm3 (0.84-5.20); LYMPHOCYTES PERCENT MAN 4 % (21-46); METAMYELOCYTE ABSOLUTE MAN 0.26 K/mm3 (0.00-0.00); METAMYELOCYTE PERCENT MAN 1 % (0-0); MONOCYTES ABSOLUTE MAN 1.34 K/mm3 (0.16-1.47); MONOCYTES PERCENT MAN 5 % (4-13); MYELOCYTE ABSOLUTE MAN 0.26 K/mm3 (0.00-0.00); MYELOCYTE PERCENT MAN 1 % (0-0); Magnesium, Blood 2.2 mg/dL (1.6-2.4); NEUTROPHILS ABSOLUTE MAN 23.89 K/mm3 (1.96-9.15); Potassium, Blood 2.9 mmol/L (3.5-5.5); SEG NEUTROPHILS PERCENT MAN 70 % (41-73); Sodium, Blood 149 mmol/L (136-145); TOTAL CELLS COUNTED 100; Total Protein, Blood 5.7 g/dL (6.4-8.2)
[2018-02-09 11:16] LABS: Vancomycin, Random 16.6 ug/mL
[2018-02-09 17:27] LABS: Magnesium, Blood 2.1 mg/dL (1.6-2.4)
[2018-02-09 17:28] LABS: Anion Gap 11 mmol/L (6-16); Blood Urea Nitrogen 24 mg/dL (8-24); Bun/Creatinine Ratio 28.4 (12.0-20.0); CO2, Blood 16 mmol/L (21-32); Calcium, Blood 7.5 mg/dL (8.5-10.1); Chloride, Blood 118 mmol/L (98-108); Creatinine, Blood 0.85 mg/dL (0.40-1.00); Glomerular Filtration Rate >60 (60-); Glucose, Blood 100 mg/dL (70-99); Phosphorus, Blood 1.8 mg/dL (2.5-4.9); Potassium, Blood 3.8 mmol/L (3.5-5.5); Sodium, Blood 145 mmol/L (136-145)
[2018-02-10 04:12] LABS: Hemoglobin 8.5 g/dL (11.5-16.0); Mean Corpuscular HGB 38.5 pg (26.0-34.0); Mean Corpuscular HGB Conc 31.5 g/dL (31.5-36.5); Mean Corpuscular Volume 122 fL (80-100); Mean Platelet Volume 11.8 fL (9.1-12.4); NRBC ABSOLUTE 0.13 K/mm3 (0.00-0.02); NRBC Auto 0.4 /100 WBC (0.0-0.2); Platelet Count 571 K/mm3 (150-400); RDW Coefficient Variation 20.9 % (11.7-14.2); RDW Standard Deviation 92.5 fL (35.1-46.3); Red Blood Cell Count 2.21 M/mm3 (3.80-5.20); White Blood Cell Count 29.88 K/mm3 (4.00-11.30)
[2018-02-10 04:57] LABS: Alanine Aminotransfer (ALT/SGP 45 U/L (12-78); Albumin, Blood 1.4 g/dL (3.4-5.0); Albumin/Globulin Ratio 0.3 (0.8-1.8); Alk Phos 326 U/L (50-136); Anion Gap 11 mmol/L (6-16); Aspartate Aminotrans (AST/SGOT 135 U/L (12-37); Bilirubin, Total 12.1 mg/dL (0.1-1.0); Blood Urea Nitrogen 22 mg/dL (8-24); Bun/Creatinine Ratio 26.7 (12.0-20.0); CO2, Blood 17 mmol/L (21-32); Calcium, Blood 7.2 mg/dL (8.5-10.1); Chloride, Blood 116 mmol/L (98-108); Creatinine, Blood 0.82 mg/dL (0.40-1.00); Globulin, Blood 4.2 g/dL (2.2-4.0); Glomerular Filtration Rate >60 (60-); Glucose, Blood 104 mg/dL (70-99); Sodium, Blood 144 mmol/L (136-145); Total Protein, Blood 5.6 g/dL (6.4-8.2)
[2018-02-10 05:23] LABS: BAND PERCENT MAN 7 % (0-8); BASOPHILS ABSOLUTE MAN 0.29 K/mm3 (0.00-0.23); BASOPHILS PERCENT MAN 1 % (0-2); EOSINOPHILS ABSOLUTE MAN 0.29 K/mm3 (0.00-0.68); EOSINOPHILS PERCENT MAN 1 % (0-6); LYMPHOCYTES ABSOLUTE MAN 2.39 K/mm3 (0.84-5.20); LYMPHOCYTES PERCENT MAN 8 % (21-46); METAMYELOCYTE ABSOLUTE MAN 0.89 K/mm3 (0.00-0.00); METAMYELOCYTE PERCENT MAN 3 % (0-0); MONOCYTES ABSOLUTE MAN 0.89 K/mm3 (0.16-1.47); MONOCYTES PERCENT MAN 3 % (4-13); MYELOCYTE ABSOLUTE MAN 0.29 K/mm3 (0.00-0.00); MYELOCYTE PERCENT MAN 1 % (0-0); SEG NEUTROPHILS PERCENT MAN 76 % (41-73); TOTAL CELLS COUNTED 100
[2018-02-10 12:32] LABS: Vancomycin, Trough 9.9 ug/mL (5.0-10.0)
[2018-02-11 06:48] LABS: Hematocrit 26.3 % (33.0-51.0); Hemoglobin 8.4 g/dL (11.5-16.0); Mean Corpuscular HGB 39.6 pg (26.0-34.0); Mean Corpuscular HGB Conc 31.9 g/dL (31.5-36.5); Mean Corpuscular Volume 124 fL (80-100); Mean Platelet Volume 11.5 fL (9.1-12.4); NRBC ABSOLUTE 0.05 K/mm3 (0.00-0.02); NRBC Auto 0.2 /100 WBC (0.0-0.2); Platelet Count 609 K/mm3 (150-400); RDW Coefficient Variation 20.1 % (11.7-14.2); RDW Standard Deviation 90.9 fL (35.1-46.3); Red Blood Cell Count 2.12 M/mm3 (3.80-5.20); White Blood Cell Count 30.03 K/mm3 (4.00-11.30)
[2018-02-11 07:04] LABS: Alanine Aminotransfer (ALT/SGP 45 U/L (12-78); Albumin, Blood 1.4 g/dL (3.4-5.0); Albumin/Globulin Ratio 0.3 (0.8-1.8); Alk Phos 409 U/L (50-136); Anion Gap 10 mmol/L (6-16); Aspartate Aminotrans (AST/SGOT 139 U/L (12-37); Bilirubin, Total 10.2 mg/dL (0.1-1.0); Blood Urea Nitrogen 20 mg/dL (8-24); Bun/Creatinine Ratio 24.9 (12.0-20.0); CO2, Blood 16 mmol/L (21-32); Calcium, Blood 7.3 mg/dL (8.5-10.1); Chloride, Blood 118 mmol/L (98-108); Globulin, Blood 4.1 g/dL (2.2-4.0); Glomerular Filtration Rate >60 (60-); Glucose, Blood 90 mg/dL (70-99); Potassium, Blood 3.1 mmol/L (3.5-5.5); Sodium, Blood 144 mmol/L (136-145); Total Protein, Blood 5.5 g/dL (6.4-8.2)
[2018-02-11 07:11] LABS: Vancomycin, Trough 13.2 ug/mL (5.0-10.0)
[2018-02-11 07:19] LABS: BAND PERCENT MAN 13 % (0-8); BASOPHILS PERCENT MAN 0 % (0-2); EOSINOPHILS PERCENT MAN 1 % (0-6); LYMPHOCYTES PERCENT MAN 9 % (21-46); METAMYELOCYTE PERCENT MAN 1 % (0-0); MONOCYTES PERCENT MAN 4 % (4-13); NEUTROPHILS ABSOLUTE MAN 25.52 K/mm3 (1.96-9.15); SEG NEUTROPHILS PERCENT MAN 72 % (41-73); TOTAL CELLS COUNTED 100
[2018-02-12 01:01] LABS: Hemoglobin 8.2 g/dL (11.5-16.0); Mean Platelet Volume 11.3 fL (9.1-12.4); NRBC ABSOLUTE 0.11 K/mm3 (0.00-0.02); NRBC Auto 0.4 /100 WBC (0.0-0.2); Platelet Count 622 K/mm3 (150-400); White Blood Cell Count 27.96 K/mm3 (4.00-11.30)
[2018-02-12 01:10] LABS: Hematocrit 26.4 % (33.0-51.0); Mean Corpuscular HGB Conc 31.1 g/dL (31.5-36.5); Mean Corpuscular Volume 122 fL (80-100); Red Blood Cell Count 2.16 M/mm3 (3.80-5.20)
[2018-02-12 01:13] LABS: RDW Coefficient Variation 21.7 % (11.7-14.2)
[2018-02-12 01:24] LABS: BAND PERCENT MAN 13 % (0-8); BASOPHILS ABSOLUTE MAN 0.27 K/mm3 (0.00-0.23); BASOPHILS PERCENT MAN 1 % (0-2); EOSINOPHILS ABSOLUTE MAN 1.39 K/mm3 (0.00-0.68); EOSINOPHILS PERCENT MAN 5 % (0-6); LYMPHOCYTES ABSOLUTE MAN 1.39 K/mm3 (0.84-5.20); LYMPHOCYTES PERCENT MAN 5 % (21-46); MONOCYTES ABSOLUTE MAN 1.11 K/mm3 (0.16-1.47); MONOCYTES PERCENT MAN 4 % (4-13); NEUTROPHILS ABSOLUTE MAN 23.76 K/mm3 (1.96-9.15); SEG NEUTROPHILS PERCENT MAN 72 % (41-73); TOTAL CELLS COUNTED 100
[2018-02-12 01:51] LABS: Alanine Aminotransfer (ALT/SGP 45 U/L (12-78); Albumin, Blood 2.1 g/dL (3.4-5.0); Albumin/Globulin Ratio 0.6 (0.8-1.8); Alk Phos 494 U/L (50-136); Anion Gap 12 mmol/L (6-16); Aspartate Aminotrans (AST/SGOT 150 U/L (12-37); Bilirubin, Total 9.2 mg/dL (0.1-1.0); Blood Urea Nitrogen 19 mg/dL (8-24); Bun/Creatinine Ratio 23.3 (12.0-20.0); CO2, Blood 17 mmol/L (21-32); Calcium, Blood 7.5 mg/dL (8.5-10.1); Chloride, Blood 119 mmol/L (98-108); Creatinine, Blood 0.82 mg/dL (0.40-1.00); Globulin, Blood 3.7 g/dL (2.2-4.0); Glomerular Filtration Rate >60 (60-); Glucose, Blood 100 mg/dL (70-99); Potassium, Blood 2.9 mmol/L (3.5-5.5); Sodium, Blood 148 mmol/L (136-145); Total Protein, Blood 5.8 g/dL (6.4-8.2)
[2018-02-12 02:39] LABS: Magnesium, Blood 1.9 mg/dL (1.6-2.4); Phosphorus, Blood 2.2 mg/dL (2.5-4.9)
[2018-02-12 15:07] LABS: Potassium, Blood 3.4 mmol/L (3.5-5.5)
[2018-02-13 03:45] LABS: Hematocrit 25.2 % (33.0-51.0); Hemoglobin 7.8 g/dL (11.5-16.0); Mean Platelet Volume 11.4 fL (9.1-12.4); NRBC ABSOLUTE 0.12 K/mm3 (0.00-0.02); NRBC Auto 0.4 /100 WBC (0.0-0.2); Platelet Count 611 K/mm3 (150-400); RDW Standard Deviation 90.7 fL (35.1-46.3); White Blood Cell Count 27.87 K/mm3 (4.00-11.30)
[2018-02-13 03:48] LABS: Mean Corpuscular Volume 126 fL (80-100)
[2018-02-13 03:49] LABS: Alanine Aminotransfer (ALT/SGP 44 U/L (12-78); Albumin, Blood 1.8 g/dL (3.4-5.0); Albumin/Globulin Ratio 0.5 (0.8-1.8); Alk Phos 507 U/L (50-136); Anion Gap 11 mmol/L (6-16); Aspartate Aminotrans (AST/SGOT 149 U/L (12-37); Bilirubin, Total 7.4 mg/dL (0.1-1.0); Blood Urea Nitrogen 15 mg/dL (8-24); Bun/Creatinine Ratio 18.5 (12.0-20.0); CO2, Blood 17 mmol/L (21-32); Calcium, Blood 6.9 mg/dL (8.5-10.1); Chloride, Blood 120 mmol/L (98-108); Creatinine, Blood 0.81 mg/dL (0.40-1.00); Globulin, Blood 3.8 g/dL (2.2-4.0); Glomerular Filtration Rate >60 (60-); Glucose, Blood 99 mg/dL (70-99); International Normalized Ratio 1.18; Sodium, Blood 148 mmol/L (136-145); Total Protein, Blood 5.6 g/dL (6.4-8.2)
[2018-02-13 04:48] LABS: Magnesium, Blood 1.6 mg/dL (1.6-2.4); Phosphorus, Blood 2.5 mg/dL (2.5-4.9)
[2018-02-13 05:30] LABS: BAND PERCENT MAN 8 % (0-8); BASOPHILS PERCENT MAN 0 % (0-2); EOSINOPHILS ABSOLUTE MAN 0.55 K/mm3 (0.00-0.68); EOSINOPHILS PERCENT MAN 2 % (0-6); LYMPHOCYTES ABSOLUTE MAN 0.83 K/mm3 (0.84-5.20); LYMPHOCYTES PERCENT MAN 3 % (21-46); METAMYELOCYTE ABSOLUTE MAN 0.27 K/mm3 (0.00-0.00); METAMYELOCYTE PERCENT MAN 1 % (0-0); MONOCYTES ABSOLUTE MAN 0.83 K/mm3 (0.16-1.47); MONOCYTES PERCENT MAN 3 % (4-13); NEUTROPHILS ABSOLUTE MAN 25.36 K/mm3 (1.96-9.15); SEG NEUTROPHILS PERCENT MAN 83 % (41-73); TOTAL CELLS COUNTED 100
[2018-02-14 06:27] LABS: Vancomycin, Trough 15.1 ug/mL (5.0-10.0)
[2018-02-14 08:06] LABS: BASOPHILS ABSOLUTE AUTO 0.13 K/mm3 (0.00-0.23); BASOPHILS PERCENT AUTO 1 % (0-2); EOSINOPHILS ABSOLUTE AUTO 0.77 K/mm3 (0.00-0.68); EOSINOPHILS PERCENT AUTO 3 % (0-6); Hematocrit 25.3 % (33.0-51.0); Hemoglobin 7.6 g/dL (11.5-16.0); IMMATURE GRAN ABSOLUTE AUTO 1.37 K/mm3 (0.00-0.10); IMMATURE GRAN PERCENT AUTO 5 % (0-1); LYMPHOCYTES ABSOLUTE AUTO 2.16 K/mm3 (0.84-5.20); LYMPHOCYTES PERCENT AUTO 8 % (21-46); MONOCYTES ABSOLUTE AUTO 0.85 K/mm3 (0.16-1.47); MONOCYTES PERCENT AUTO 3 % (4-13); Mean Corpuscular Volume 127 fL (80-100); NEUTROPHILS ABSOLUTE AUTO 21.97 K/mm3 (1.96-9.15); NEUTROPHILS PERCENT AUTO 81 % (41-73); NRBC ABSOLUTE 0.04 K/mm3 (0.00-0.02); NRBC Auto 0.1 /100 WBC (0.0-0.2); Platelet Count 588 K/mm3 (150-400); RDW Coefficient Variation 19.4 % (11.7-14.2); RDW Standard Deviation 91.1 fL (35.1-46.3); White Blood Cell Count 27.25 K/mm3 (4.00-11.30)
[2018-02-14 08:20] LABS: Alanine Aminotransfer (ALT/SGP 47 U/L (12-78); Albumin, Blood 1.7 g/dL (3.4-5.0); Albumin/Globulin Ratio 0.5 (0.8-1.8); Alk Phos 494 U/L (50-136); Anion Gap 12 mmol/L (6-16); Aspartate Aminotrans (AST/SGOT 153 U/L (12-37); Bilirubin, Total 6.3 mg/dL (0.1-1.0); Blood Urea Nitrogen 13 mg/dL (8-24); Bun/Creatinine Ratio 16.3 (12.0-20.0); CO2, Blood 17 mmol/L (21-32); Calcium, Blood 6.6 mg/dL (8.5-10.1); Chloride, Blood 117 mmol/L (98-108); Globulin, Blood 3.7 g/dL (2.2-4.0); Glomerular Filtration Rate >60 (60-); Glucose, Blood 91 mg/dL (70-99); Potassium, Blood 3.1 mmol/L (3.5-5.5); Sodium, Blood 146 mmol/L (136-145); Total Protein, Blood 5.4 g/dL (6.4-8.2)
[2018-02-15 04:57] LABS: BASOPHILS ABSOLUTE AUTO 0.15 K/mm3 (0.00-0.23); BASOPHILS PERCENT AUTO 1 % (0-2); EOSINOPHILS ABSOLUTE AUTO 0.52 K/mm3 (0.00-0.68); EOSINOPHILS PERCENT AUTO 2 % (0-6); Hematocrit 24.3 % (33.0-51.0); Hemoglobin 7.5 g/dL (11.5-16.0); IMMATURE GRAN ABSOLUTE AUTO 1.01 K/mm3 (0.00-0.10); IMMATURE GRAN PERCENT AUTO 4 % (0-1); LYMPHOCYTES ABSOLUTE AUTO 1.86 K/mm3 (0.84-5.20); LYMPHOCYTES PERCENT AUTO 7 % (21-46); MONOCYTES ABSOLUTE AUTO 0.88 K/mm3 (0.16-1.47); MONOCYTES PERCENT AUTO 3 % (4-13); Mean Corpuscular HGB 38.9 pg (26.0-34.0); Mean Corpuscular HGB Conc 30.9 g/dL (31.5-36.5); Mean Corpuscular Volume 126 fL (80-100); Mean Platelet Volume 11.3 fL (9.1-12.4); NEUTROPHILS PERCENT AUTO 84 % (41-73); NRBC ABSOLUTE 0.02 K/mm3 (0.00-0.02); NRBC Auto 0.1 /100 WBC (0.0-0.2); Platelet Count 550 K/mm3 (150-400); RDW Coefficient Variation 18.6 % (11.7-14.2); RDW Standard Deviation 86.3 fL (35.1-46.3); Red Blood Cell Count 1.93 M/mm3 (3.80-5.20); White Blood Cell Count 26.82 K/mm3 (4.00-11.30)
[2018-02-15 05:20] LABS: Alanine Aminotransfer (ALT/SGP 43 U/L (12-78); Albumin/Globulin Ratio 0.6 (0.8-1.8); Alk Phos 435 U/L (50-136); Anion Gap 10 mmol/L (6-16); Aspartate Aminotrans (AST/SGOT 143 U/L (12-37); Bilirubin, Total 5.8 mg/dL (0.1-1.0); Blood Urea Nitrogen 10 mg/dL (8-24); Bun/Creatinine Ratio 13.2 (12.0-20.0); CO2, Blood 19 mmol/L (21-32); Calcium, Blood 6.5 mg/dL (8.5-10.1); Chloride, Blood 115 mmol/L (98-108); Creatinine, Blood 0.76 mg/dL (0.40-1.00); Globulin, Blood 3.4 g/dL (2.2-4.0); Glomerular Filtration Rate >60 (60-); Glucose, Blood 86 mg/dL (70-99); Potassium, Blood 2.9 mmol/L (3.5-5.5); Sodium, Blood 144 mmol/L (136-145); Total Protein, Blood 5.4 g/dL (6.4-8.2)
[2018-02-15 05:24] LABS: Percent Saturation 35.4 % (15.0-50.0)
[2018-02-16 05:20] LABS: BASOPHILS ABSOLUTE AUTO 0.14 K/mm3 (0.00-0.23); BASOPHILS PERCENT AUTO 1 % (0-2); EOSINOPHILS ABSOLUTE AUTO 0.37 K/mm3 (0.00-0.68); EOSINOPHILS PERCENT AUTO 2 % (0-6); Hematocrit 24.3 % (33.0-51.0); Hemoglobin 7.4 g/dL (11.5-16.0); IMMATURE GRAN ABSOLUTE AUTO 0.66 K/mm3 (0.00-0.10); IMMATURE GRAN PERCENT AUTO 3 % (0-1); LYMPHOCYTES ABSOLUTE AUTO 1.65 K/mm3 (0.84-5.20); LYMPHOCYTES PERCENT AUTO 7 % (21-46); MONOCYTES ABSOLUTE AUTO 0.94 K/mm3 (0.16-1.47); MONOCYTES PERCENT AUTO 4 % (4-13); Mean Corpuscular HGB 38.5 pg (26.0-34.0); Mean Corpuscular HGB Conc 30.5 g/dL (31.5-36.5); Mean Corpuscular Volume 127 fL (80-100); Mean Platelet Volume 11.5 fL (9.1-12.4); NEUTROPHILS ABSOLUTE AUTO 21.72 K/mm3 (1.96-9.15); NEUTROPHILS PERCENT AUTO 85 % (41-73); Platelet Count 542 K/mm3 (150-400); RDW Coefficient Variation 18.1 % (11.7-14.2); RDW Standard Deviation 84.7 fL (35.1-46.3); Red Blood Cell Count 1.92 M/mm3 (3.80-5.20); White Blood Cell Count 25.48 K/mm3 (4.00-11.30)
[2018-02-16 05:30] LABS: Alanine Aminotransfer (ALT/SGP 45 U/L (12-78); Albumin, Blood 2.1 g/dL (3.4-5.0); Albumin/Globulin Ratio 0.6 (0.8-1.8); Alk Phos 437 U/L (50-136); Anion Gap 10 mmol/L (6-16); Aspartate Aminotrans (AST/SGOT 144 U/L (12-37); Bilirubin, Total 5.7 mg/dL (0.1-1.0); Blood Urea Nitrogen 11 mg/dL (8-24); Bun/Creatinine Ratio 14.4 (12.0-20.0); CO2, Blood 19 mmol/L (21-32); Calcium, Blood 6.7 mg/dL (8.5-10.1); Chloride, Blood 115 mmol/L (98-108); Creatinine, Blood 0.76 mg/dL (0.40-1.00); Globulin, Blood 3.6 g/dL (2.2-4.0); Glomerular Filtration Rate >60 (60-); Glucose, Blood 87 mg/dL (70-99); Potassium, Blood 3.2 mmol/L (3.5-5.5); Sodium, Blood 144 mmol/L (136-145); Total Protein, Blood 5.7 g/dL (6.4-8.2)
[2018-02-16 12:44] LABS: Vancomycin, Trough 16.8 ug/mL (5.0-10.0)
[2018-02-16] MEDS ORDERED: METO25 PO (14:00)
[2018-02-16] MEDS ORDERED: Vancocin HCL1000 M1 PO (14:01)
[2018-02-16] MEDS ORDERED: PANT40 PO (14:01)
[2018-02-16] MEDS ORDERED: NEPHRO-VITE RX1 EACH PO (14:02)
[2018-02-16] MEDS ORDERED: ALBU90OI INH (14:02)
== END 2018-02-16 14:12 | disposition home health service (06) | DRG 870 ==
LOC: ER 10:24 → ICUW 14:55 → ICUE 02-05 19:35 → ICUW 02-12 17:07 → MEDS 02-13 18:15
PROVIDERS: Family Medicine; Internal Medicine; Internal Medicine Critical Care Medicine; Internal Medicine Gastroenterology; Internal Medicine Pulmonary Disease; Pharmacist
PROC: 5A1955Z Respiratory Ventilation, Greater than 96 Consecutive Hours (ICD-10-PCS; principal; 2018-01-28)
PROC: 02HV33Z Insertion of Infusion Device into Superior Vena Cava, Percutaneous Approach (ICD-10-PCS; 2018-01-28)
PROC: 0BH18EZ Insertion of Endotracheal Airway into Trachea, Via Natural or Artificial Opening Endoscopic (ICD-10-PCS; 2018-01-28)
PROC: 0W3P8ZZ Control Bleeding in Gastrointestinal Tract, Via Natural or Artificial Opening Endoscopic (ICD-10-PCS; 2018-01-31)
PROC: 0DB68ZX Excision of Stomach, Via Natural or Artificial Opening Endoscopic, Diagnostic (ICD-10-PCS; 2018-01-31)
DX: A41.02 Sepsis due to Methicillin resistant Staphylococcus aureus (principal); R65.21 Severe sepsis with septic shock; J96.01 Acute respiratory failure with hypoxia; G92 Toxic encephalopathy; J15.212 Pneumonia due to Methicillin resistant Staphylococcus aureus; F10.231 Alcohol dependence with withdrawal delirium; E87.1 Hypo-osmolality and hyponatremia; N17.9 Acute kidney failure, unspecified; N39.0 Urinary tract infection, site not specified; K56.7 Ileus, unspecified; A04.72 Enterocolitis due to Clostridium difficile, not specified as recurrent; K22.10 Ulcer of esophagus without bleeding; E87.0 Hyperosmolality and hypernatremia; F17.210 Nicotine dependence, cigarettes, uncomplicated; E03.9 Hypothyroidism, unspecified; E86.0 Dehydration; J45.909 Unspecified asthma, uncomplicated; E87.6 Hypokalemia; D69.6 Thrombocytopenia, unspecified; K72.90 Hepatic failure, unspecified without coma; K70.10 Alcoholic hepatitis without ascites; D64.9 Anemia, unspecified; K76.0 Fatty (change of) liver, not elsewhere classified; G25.81 Restless legs syndrome; K70.11 Alcoholic hepatitis with ascites; E83.51 Hypocalcemia; K25.9 Gastric ulcer, unspecified as acute or chronic, without hemorrhage or perforation
CPT/HCPCS: 31500; 31720; 36415; 36556; 36600; 51701; 51702; 70450; 71045; 71260; 76705; 80048; 80051; 80053; 80069; 80202; 81001; 82140; 82306; 82330; 82607; 82728; 82746; 82803; 82947; 83540; 83550; 83605; 83735; 83970; 84100; 84132; 84295; 85014; 85018; 85025; 85610; 87040; 87070; 87077; 87086; 87147; 87186; 87205; 87338; 87493; 88305; 88342; 92526; 92610; 93005; 93010; 94002; 94003; 94640; 94667; 94760; 94762; 96365; 96366; 96367; 96368; 96375; 96376; 97110; 97116; 97162; 97166; 97530; 99285-25; C1751; C9113; G0480; G8978; G8979; G8987; G8988; G8996; G8997; G8998; J0610; J0696; J0744; J1430; J1450; J1644; J1650; J1940; J1956; J2060; J2250; J2543; J3010; J3370; J3411; J3475; J3480; J7030; J7040; J7042; J7050; J7060; J7070; P9041; Q9967

== ENCOUNTER 2018-04-19 12:59 | Day surgery (SDC) | payer OTHER ==
[~2018-04-19] VITALS: Ht 160 cm; Wt 59.1 kg
[~2018-04-19 12:59] MED LIST changes: +METO25 PO; +NEPHRO-VITE RX1 EACH PO; +PANT40 PO; +Vancocin HCL1000 M1 PO
--- NOTE | 2018-04-19 14:26 | NUR ---
04/19/18 1426 Lizeth Henley 1 IV MISS IN RH BY ROXANA VALVE 1 GOOD IV IN RAC BY ROXANA PT TOW
== END 2018-04-19 15:40 | disposition home or self-care (01) ==
LOC: ORSCSDS 12:59
PROVIDERS: Internal Medicine Gastroenterology
PROC: 0DB68ZX Excision of Stomach, Via Natural or Artificial Opening Endoscopic, Diagnostic (ICD-10-PCS; principal; 2018-04-19 14:15)
PROC: 0DB88ZX Excision of Small Intestine, Via Natural or Artificial Opening Endoscopic, Diagnostic (ICD-10-PCS; principal; 2018-04-19 14:15)
PROC: 0D568ZZ Destruction of Stomach, Via Natural or Artificial Opening Endoscopic (ICD-10-PCS; principal; 2018-04-19 14:15)
DX: R10.13 Epigastric pain (principal); K92.1 Melena; R10.32 Left lower quadrant pain; K70.10 Alcoholic hepatitis without ascites; Z87.11 Personal history of peptic ulcer disease; K29.70 Gastritis, unspecified, without bleeding; F31.81 Bipolar II disorder; I10 Essential (primary) hypertension; E03.9 Hypothyroidism, unspecified; E78.5 Hyperlipidemia, unspecified; J45.909 Unspecified asthma, uncomplicated; F17.210 Nicotine dependence, cigarettes, uncomplicated; Z79.899 Other long term (current) drug therapy
CPT/HCPCS: 88305; 88342; J7120

== ENCOUNTER → 2019-04-04 | Outpatient (CLI) | payer OTHER ==
[~2019-04-04] MED LIST changes: +Doxycycline Mo100 M1 PO; +LEVSOD25 PO; +PRAZ1 PO; +PREG75 PO; +SPIR25 PO; +TRAZ100 PO; +ZOLP5 PO
[2019-04-05 13:18] LABS: Stool Occult Bld Immuno 1 Negative (NEGATIVE)
== END | disposition home or self-care (01) ==
LOC: LAB 12:00 → LAB SHORT 12:00
PROVIDERS: Nurse Practitioner Family
DX: Z12.11 Encounter for screening for malignant neoplasm of colon (principal)
CPT/HCPCS: G0328

== ENCOUNTER 2019-04-22 21:13 | Observation (INO) | payer OTHER ==
[~2019-04-22] VITALS: Ht 157.5 cm; Wt 71.1 kg
[~2019-04-22 21:13] MED LIST changes: -Doxycycline Mo100 M1 PO; -LEVSOD25 PO; -PRAZ1 PO; -PREG75 PO; -SPIR25 PO; -TRAZ100 PO; -ZOLP5 PO
[2019-04-22 21:50] LABS: BASOPHILS ABSOLUTE AUTO 0.08 K/mm3 (0.00-0.23); BASOPHILS PERCENT AUTO 1 % (0-2); EOSINOPHILS ABSOLUTE AUTO 0.14 K/mm3 (0.00-0.68); EOSINOPHILS PERCENT AUTO 2 % (0-6); Hematocrit 39.5 % (33.0-51.0); Hemoglobin 13.2 g/dL (11.5-16.0); IMMATURE GRAN ABSOLUTE AUTO 0.02 K/mm3 (0.00-0.10); IMMATURE GRAN PERCENT AUTO 0 % (0-1); LYMPHOCYTES ABSOLUTE AUTO 2.08 K/mm3 (0.84-5.20); LYMPHOCYTES PERCENT AUTO 34 % (21-46); MONOCYTES ABSOLUTE AUTO 0.46 K/mm3 (0.16-1.47); MONOCYTES PERCENT AUTO 8 % (4-13); Mean Corpuscular HGB 33.3 pg (26.0-34.0); Mean Corpuscular HGB Conc 33.4 g/dL (31.5-36.5); Mean Corpuscular Volume 100 fL (80-100); Mean Platelet Volume 9.7 fL (9.1-12.4); NEUTROPHILS ABSOLUTE AUTO 3.38 K/mm3 (1.96-9.15); NEUTROPHILS PERCENT AUTO 55 % (41-73); Platelet Count 165 K/mm3 (150-400); RDW Coefficient Variation 14.6 % (11.7-14.2); RDW Standard Deviation 53.4 fL (35.1-46.3); Red Blood Cell Count 3.96 M/mm3 (3.80-5.20); White Blood Cell Count 6.16 K/mm3 (4.00-11.30)
[2019-04-22 21:59] LABS: Source, Urine Clean Catch
[2019-04-22 22:07] LABS: Alanine Aminotransfer (ALT/SGP 81 U/L (12-78); Albumin, Blood 3.8 g/dL (3.4-5.0); Albumin/Globulin Ratio 1.1 (0.8-1.8); Alk Phos 126 U/L (50-136); Anion Gap 8 mmol/L (6-16); Aspartate Aminotrans (AST/SGOT 72 U/L (12-37); Bilirubin, Total 0.3 mg/dL (0.1-1.0); Blood Urea Nitrogen 16 mg/dL (8-24); Bun/Creatinine Ratio 22.4 (12.0-20.0); CO2, Blood 24 mmol/L (21-32); Calcium, Blood 8.7 mg/dL (8.5-10.1); Chloride, Blood 114 mmol/L (98-108); Creatinine, Blood 0.71 mg/dL (0.40-1.00); Free Thyroxine 0.79 ng/dL (0.70-1.60); Globulin, Blood 3.6 g/dL (2.2-4.0); Glomerular Filtration Rate >60 (60-); Glucose, Blood 99 mg/dL (70-99); Potassium, Blood 3.5 mmol/L (3.5-5.5); Sodium, Blood 146 mmol/L (136-145); Total Protein, Blood 7.4 g/dL (6.4-8.2)
[2019-04-22 22:10] LABS: Acetaminophen, Random <2.0 ug/mL (10.0-30.0); Ethanol (Alcohol), Blood, Med 324 mg/dL
[2019-04-22 22:13] LABS: Appearance, Urine Hazy (Clear); Bilirubin, Urine Neg (Neg); Blood, Urine 4+ (Neg); Color, Urine Yellow (P-Yellow); Glucose Qualitative, Urine Neg (Neg); Ketones, Urine Neg (Neg); Leukocyte Esterase, Urine 3+ (Neg); Nitrite, Urine Pos (Neg); Protein, Urine Neg (Neg); Urobilinogen, Urine NORM (Normal); pH, Urine 6.5 (5.0-8.0)
[2019-04-22 22:25] LABS: Bacteria Many /hpf; Red Blood Cells, Urine 0-2 /hpf (0-2); Squamous Epithelial Cells Few /hpf (Few)
[2019-04-22 22:26] LABS: Transitional Epithelial Cells Few /hpf (0-Rare)
[2019-04-22 22:38] LABS: U Amphetamine Screen Not Detected; U Barbituate Screen Not Detected; U Benzodiazapine Screen Not Detected; U Buprenorphine Screen Not Detected; U Cannabinoids Screen Not Detected; U Cocaine Screen Not Detected; U Methadone Screen Not Detected; U Methamphetamine Screen Not Detected; U Opiates Screen Not Detected; U Oxycodone Screen Not Detected; U Phencyclidine Screen Not Detected; U Propoxyphene Screen Not Detected
[2019-04-23 01:55] LABS: International Normalized Ratio 0.92; Prothrombin Time Results 9.9 Sec (9.7-11.5)
[2019-04-23] MEDS ORDERED: BENZ100A PO (02:08)
[2019-04-23] MEDS ORDERED: Doxycycline Mo100 M1 PO (02:12)
[2019-04-23] MEDS ORDERED: TRAZ100 PO (02:13)
[2019-04-23] MEDS ORDERED: PREG75 PO (02:15)
[2019-04-23] MEDS ORDERED: PRAZ1 PO (02:17)
[2019-04-23] MEDS ORDERED: ZOLP5 PO (02:20)
[2019-04-23] MEDS ORDERED: LEVSOD25 PO (02:21)
[2019-04-23] MEDS ORDERED: SPIR25 PO (02:23)
[2019-04-23 03:43] LABS: Hematocrit 36.1 % (33.0-51.0); Hemoglobin 11.5 g/dL (11.5-16.0); Mean Corpuscular HGB 32.6 pg (26.0-34.0); Mean Corpuscular HGB Conc 31.9 g/dL (31.5-36.5); Mean Corpuscular Volume 102 fL (80-100); Mean Platelet Volume 9.9 fL (9.1-12.4); Platelet Count 148 K/mm3 (150-400); RDW Coefficient Variation 14.8 % (11.7-14.2); RDW Standard Deviation 55.5 fL (35.1-46.3); Red Blood Cell Count 3.53 M/mm3 (3.80-5.20); White Blood Cell Count 5.95 K/mm3 (4.00-11.30)
[2019-04-23 04:12] LABS: Alanine Aminotransfer (ALT/SGP 63 U/L (12-78); Albumin, Blood 3.3 g/dL (3.4-5.0); Alk Phos 110 U/L (50-136); Anion Gap 7 mmol/L (6-16); Aspartate Aminotrans (AST/SGOT 46 U/L (12-37); Bilirubin, Total 0.4 mg/dL (0.1-1.0); Blood Urea Nitrogen 16 mg/dL (8-24); Bun/Creatinine Ratio 23.3 (12.0-20.0); CO2, Blood 23 mmol/L (21-32); Chloride, Blood 113 mmol/L (98-108); Creatinine, Blood 0.69 mg/dL (0.40-1.00); Globulin, Blood 3.3 g/dL (2.2-4.0); Glomerular Filtration Rate >60 (60-); Glucose, Blood 91 mg/dL (70-99); Potassium, Blood 3.3 mmol/L (3.5-5.5); Sodium, Blood 143 mmol/L (136-145); Total Protein, Blood 6.6 g/dL (6.4-8.2)
--- NOTE | 2019-04-23 07:36 | NUR ---
WHILE DOING ADMISSION HISTORY, WHEN ASKING IF PATIENT FEELS SAFE AT HOME, RESPONDS BY SHAKING HEAD NO. WHEN I ASKED HER TO ELABORATE, SHE EXPANDED ON A GRIM HOME SCENARIO. HER SON, NOMAN, IS INVOLVED IN DRUG DEALING. "I HEAR MY SON TALKING TO HIS FRIENDS ABOUT PAKO, MDMA, EXTASY ALL THE TIME. HE KEEPS HIS ROOM CLOSED, SO I NEVER SEE WHAT IS GOING ON EXACTLY, BUT I HEAR HIM AND HIS FRIENDS TALKING ABOUT IT AND SNORTING SOMETHING FREQUENTLY. PEOPLE ARE COMING AND GOING IN THE HOUSE ALL HOURS OF THE NIGHT, USUALLY LEAVING WITH BAGS. ALL HIS FRIENDS BRING HIGH-POWERED WEAPONS IN WHEN THEY VISIT, TO MY KNOWLEDGE THEY'RE LEGAL, BUT I DON'T KNOW. I HEAR THEM CALL AND HARASS PEOPLE ALL THE TIME, SAYING 'I'M GOING TO KILL YOU,' OR 'I'M GOING TO BURN YOUR HOUSE DOWN,' THAT KIND OF THING." WHEN ASKED IF SHE HEARD OF ANY SPECIFIC PLANS, PATIENT STATES SHE DOES NOW KNOW OF ANY, BUT "THEY ARE THREATENING PEOPLE ALL THE TIME." PATIENT STATES "ONE OF HIS FRIENDS OWNS A POT FARM, HE'LL BRING IN TRASH BAGS FULL OF THE STUFF, AND WE ALL SIT AROUND AND TRIM AND PACKAGE IT. I DON'T KNOW WHERE IT GOES." WHEN ASKED IF HER FRIEND, USMAN, WHO IS AT BEDSIDE, KNOWS ABOUT ANY SPECIFICS, SHE DENIES. PATIENT STATES "THE SHERRIZEKE HAVE BEEN TO THE HOUSE A COUPLE OF TIMES, BUT HAVE SO FAR JUST TOLD ME TO GET A RESTRAINING ORDER AGAINST MY SON." HAVE PLACED PRIMARY CARE COORDINATOR CONSULT.
--- NOTE | 2019-04-23 08:42 | NUR ---
DR. MENDOSA IN ROOM TO SEE PATIENT. DOCTOR INFORMED THAT PATIENT IS STARTING TO HAVE ETOH WITHDRAWAL SYMPTOMS. INFORMED THAT NO WITHDRAWAL MEDICATIONS ORDERED. INFORMED THAT POTASSIUM 3.3 THIS AM AND WAS NOT REPLETED. INFORMED THAT PATIENT APPEARS TO HAVE UTI. INFORMED THAT PATIENT HAS TEMP OF 99.4 DEGREES FAHRENHEIT THIS AM. ORDERS RECEIVED.
--- NOTE | 2019-04-23 09:00 | NUR ---
INITIAL ASSESSMENT PATIENT ALERT AND ORIENTED X 4. PATIENT SLIGHTLY ANXIOUS BUT COOPERATIVE. CIWA SCORE OF 9. PATIENT STATES THAT SHE WANTS TO QUIT DRINKING. PATIENT TREMULOUS AND WEAK. PATIENT STATES SHE HAS CHRONIC N/T IN BLES. PATIENT DENIES PAIN. PATIENT HAS TEMP OF 99.4 DEGREES FAHRENHEIT. LUNGS CLEAR THROUGHOUT. PATIENT SATTING 90% AND GREATER ON RA. PATIENT STATES SHE HAS MOIST, NONPRODUCTIVE COUGH. PATIENT STATES SHE HAS BEEN ON ANTIBIOTICS FOR SINUS INFECTION. PATIENT IN SR, HR 70S TO 80S. BP STABLE. GI WNL. WNL. PATIENT BEING ASSISTED WITH USE OF BEDPAN. BUES REDDENED. OTHERWISE, SKIN APPEARS C/D/I. 1/2 NS INFUSING AT 75 MLS/ HOUR. BED LOW, CALL LIGHT IN REACH. PATIENT HAS GOOD FRIEND AT BEDSIDE. WILL CONTINUE TO MONITOR PATIENT FREQUENTLY THROUGHOUT SHIFT.
--- NOTE | 2019-04-23 12:30 | NUR ---
PATIENT RESTING QUIETLY IN BED. DENIES PAIN. AFEBRILE. PATIENT CALM AND COOPERATIVE. CIWA SCORE OF 5. PATIENT REMAINS WEAK BUT ABLE TO USE BEDSIDE COMMODE WITH 1 PA. PATIENT REMAINS SATTING 90% AND GREATER ON RA. PATIENT REMAINS IN SR, HR 70S TO 90S. BP STABLE. PATIENT RECEIVED PARTIAL BATH. NO OTHER ACUTE CHANGES TO NOTE ON AT THIS TIME. WILL CONTINUE TO MONITOR.
--- NOTE | 2019-04-23 13:31 | NUR ---
DR. MENDOSA CALLED AND INFORMED THAT PATIENT UNABLE TO TOLERATE THE IV POTASSIUM WAS "BURNING HER ARM". STATED THAT HE WILL PUT ORDER IN FOR PO POTASSIUM.
--- NOTE | 2019-04-23 13:38 | NUR ---
SHIFT SUMMARY PATIENT HAS REMAINED ALERT AND ORIENTED X 4. PATIENT ANXIOUS AT TIMES BUT HAS REMAINED COOPERATIVE. PATIENT HAS REMAINED DENYING PAIN. PATIENT HAD TMAX OF 99.4. PATIENT HAS REMAINED SATTING 90% AND GREATER ON RA. PATIENT CONTINUES TO HAVE MOIST, NONPRODUCTIVE COUGH. PATIENT HAS REMAINED IN SR, HR 70S TO 90S. BP HAS REMAINED STABLE. PATIENT HAD 2 LOOSE/ FORMED BMS THIS SHIFT. PATIENT STARTED ON REGULAR DIET AND TOLERATING WELL. PATIENT HAS HAD POOR APPETITE THUS FAR. WNL, BESIDES POSSIBLE UTI. NO CHANGE IN SKIN. PATIENT REPOSITIONING SELF IN BED. PATIENT 1 PA TO [facility] [place] FOR WEAKNESS AND MUSCLE TREMORS. 1/2 NS INFUSING AT 75 MLS/ HOUR. POTASSIUM 3.3 THIS AM. IV POTASSIUM ORDERED FOR PATIENT BUT PATIENT COULDN'T TOLERATE SO PO POTASSIUM ORDERED AND IV CANCELLED. PATIENT HAD PARTIAL BATH THIS SHIFT. BED LOW, CALL LIGHT IN REACH. REPORT HAS BEEN GIVEN TO ASSUMING PCU NURSE. PATIENT WILL BE TRANSFERRED TO PCU, ROOM 02.
--- NOTE | 2019-04-23 14:01 | NUR ---
PATIENT TRANSFERRED TO PCU, ROOM 02.
--- NOTE | 2019-04-23 19:32 | NUR ---
SHIFT SUMMARY PT ALERT AND ORIENTED. VS STABLE. HR NSR. PT TREATED PER CIWA PROTOCOL. PT DENIES ANY PAIN. PT COMPLAINS OF NAUSEA AT THIS TIME, BUT WAS ABLE TO TOLERATE DINNER. FAMILY AT BEDSIDE. REPORT GIVEN TO WELDER PLASTIC RN.
--- NOTE | 2019-04-23 21:09 | NUR ---
PATIENT AWAKE WANTING TO GO OUTSIDE, EXPLAINED TO PATIENT THAT SHE IS ON TELE AND THAT WE NEED TO MONITOR HER HEART. SHE IS WELCOME TO WALK THE UNIT AND SECOND FLOOR. PATIENT VERBALIZED UNDERSTANDING, AMBULATING IN GRACIA WITHOUT DIFFICULTY. PATIENT VERBALIZED SLIGHT NAUSEA RESOLVED WITH AMBULATING IN GRACIA. PATIENT NOW RESTING IN BED WITHOUT COMPLAINTS.
[2019-04-24 04:08] LABS: Alanine Aminotransfer (ALT/SGP 58 U/L (12-78); Albumin, Blood 3.4 g/dL (3.4-5.0); Alk Phos 127 U/L (50-136); Anion Gap 5 mmol/L (6-16); Aspartate Aminotrans (AST/SGOT 48 U/L (12-37); Bilirubin, Total 0.8 mg/dL (0.1-1.0); Blood Urea Nitrogen 16 mg/dL (8-24); CO2, Blood 26 mmol/L (21-32); Calcium, Blood 8.4 mg/dL (8.5-10.1); Chloride, Blood 110 mmol/L (98-108); Globulin, Blood 3.3 g/dL (2.2-4.0); Glomerular Filtration Rate >60 (60-); Glucose, Blood 94 mg/dL (70-99); Potassium, Blood 3.8 mmol/L (3.5-5.5); Sodium, Blood 141 mmol/L (136-145); Total Protein, Blood 6.7 g/dL (6.4-8.2)
--- NOTE | 2019-04-24 07:44 | NUR ---
ASSUMED CARE: PT ALERT AND ORIENTED, RESTING IN BED, TALKING WITH STAFF, DENIES NEEDS AT THIS TIME.
--- NOTE | 2019-04-24 07:55 | NUR ---
SUMMARY PATIENT SLEEPING WELL T/O NIGHT AFTER ATIVAN IV GIVEN. PATIENT VERBALIZED SHE IS FEELING BETTER THIS MORNING AND IS WANTING TO GO HOME TODAY.
--- NOTE | 2019-04-24 09:20 | NUR ---
IV'S DC'D WNL. DC INSTRUCTIONS GIVEN. PT TOLD TO FOLLOW UP AT PCP'S OFFICE AND TO RELAY ANY MED QUESTIONS TO THEM. DENIED FURTHER NEEDS OR CONCERNS. ESCORTED OUT VIA WHEEL CHAIR BY HOSPITAL STAFF.
== END 2019-04-24 09:07 | disposition home or self-care (01) ==
LOC: ER 21:13 → ICUE 21:15 → ER 22:52 → ICUW 22:52 → ICUE 22:52 → ICUW 23:43 → ICUE 04-23 03:48 → PCU 04-23 14:09
PROVIDERS: Hospitalist; Physician Assistant; ADMIT Internal Medicine
DX: F10.129 Alcohol abuse with intoxication, unspecified (principal); G92 Toxic encephalopathy; N39.0 Urinary tract infection, site not specified; E87.0 Hyperosmolality and hypernatremia; E86.0 Dehydration; J45.909 Unspecified asthma, uncomplicated; E03.9 Hypothyroidism, unspecified; Z79.899 Other long term (current) drug therapy; Y90.8 Blood alcohol level of 240 mg/100 ml or more
CPT/HCPCS: 36415; 71045; 80053; 81001; 82140; 83605; 84439; 84443; 85025; 85027; 85610; 87077; 87086; 87186; 93005; 93010; 96365; 96367; 96372; 96375; 96376; 99285-25; G0378; G0480; J0696; J1650; J2060; J3411; J3475; J3480; J7042; J7050

== ENCOUNTER → 2019-07-31 | Outpatient (CLI) | payer OTHER ==
[~2019-07-31] MED LIST changes: +Doxycycline Mo100 M1 PO; +LEVSOD25 PO; +PRAZ1 PO; +PREG75 PO; +SPIR25 PO; +TRAZ100 PO; +ZOLP5 PO
== END | disposition home or self-care (01) ==
LOC: LAB 13:22 → LAB SHORT 13:22
DX: R32 Unspecified urinary incontinence (principal)
CPT/HCPCS: 87077; 87086; 87186

== ENCOUNTER → 2019-08-31 | Outpatient (CLI) | payer OTHER ==
[2019-08-31 14:23] LABS: BASOPHILS ABSOLUTE AUTO 0.11 K/mm3 (0.00-0.23); BASOPHILS PERCENT AUTO 2 % (0-2); EOSINOPHILS ABSOLUTE AUTO 0.17 K/mm3 (0.00-0.68); EOSINOPHILS PERCENT AUTO 3 % (0-6); Hematocrit 40.6 % (33.0-51.0); Hemoglobin 13.7 g/dL (11.5-16.0); IMMATURE GRAN ABSOLUTE AUTO 0.05 K/mm3 (0.00-0.10); IMMATURE GRAN PERCENT AUTO 1 % (0-1); LYMPHOCYTES ABSOLUTE AUTO 1.86 K/mm3 (0.84-5.20); LYMPHOCYTES PERCENT AUTO 32 % (21-46); MONOCYTES ABSOLUTE AUTO 0.46 K/mm3 (0.16-1.47); MONOCYTES PERCENT AUTO 8 % (4-13); Mean Corpuscular HGB 34.2 pg (26.0-34.0); Mean Corpuscular HGB Conc 33.7 g/dL (31.5-36.5); Mean Corpuscular Volume 101 fL (80-100); Mean Platelet Volume 10.2 fL (9.1-12.4); NEUTROPHILS ABSOLUTE AUTO 3.25 K/mm3 (1.96-9.15); NEUTROPHILS PERCENT AUTO 55 % (41-73); Platelet Count 179 K/mm3 (150-400); RDW Coefficient Variation 13.4 % (11.7-14.2); RDW Standard Deviation 49.9 fL (35.1-46.3); Red Blood Cell Count 4.01 M/mm3 (3.80-5.20)
[2019-08-31 14:35] LABS: Alanine Aminotransfer (ALT/SGP 152 U/L (12-78); Albumin/Globulin Ratio 1.1 (0.8-1.8); Alk Phos 115 U/L (50-136); Anion Gap 9 mmol/L (6-16); Aspartate Aminotrans (AST/SGOT 188 U/L (12-37); Bilirubin, Total 0.4 mg/dL (0.1-1.0); Blood Urea Nitrogen 11 mg/dL (8-24); Bun/Creatinine Ratio 15.2 (12.0-20.0); CO2, Blood 23 mmol/L (21-32); Calcium, Blood 8.4 mg/dL (8.5-10.1); Chloride, Blood 110 mmol/L (98-108); Creatinine, Blood 0.72 mg/dL (0.40-1.00); Globulin, Blood 3.6 g/dL (2.2-4.0); Glomerular Filtration Rate >60 (60-); Glucose, Blood 115 mg/dL (70-99); Potassium, Blood 3.4 mmol/L (3.5-5.5); Sodium, Blood 142 mmol/L (136-145); Total Protein, Blood 7.6 g/dL (6.4-8.2)
== END | disposition home or self-care (01) ==
LOC: LAB 14:10 → LAB SHORT 14:10
PROVIDERS: Nurse Practitioner Family
DX: R10.11 Right upper quadrant pain (principal)
CPT/HCPCS: 80053; 83690; 85025; 87077; 87086; 87186

== ENCOUNTER 2020-01-02 08:20 | Day surgery (SDC) | payer OTHER ==
[~2020-01-02] VITALS: Ht 160 cm; Wt 76.0 kg
[~2020-01-02 08:20] MED LIST changes: +FLUT.05NI INH; +MIRT15 PO
--- NOTE | 2020-01-02 08:58 | NUR ---
01/02/20 0858 Adis Ibrahim CALL LIGHT WITHIN REACH
--- NOTE | 2020-01-02 11:05 | NUR ---
01/02/20 1105 Radha Verdugo LATE ENTRY 8ML ELEVIEW USED TO ELEVATE 2 TRANSVERSE COLON POLYPS 4ML NORMAL SALINE USED TO ELEVATE SIGMOID COLON POLYP
== END 2020-01-02 11:05 | disposition home or self-care (01) ==
LOC: ORSCSDS 08:20
PROVIDERS: Internal Medicine Gastroenterology
PROC: 0DBE8ZX Excision of Large Intestine, Via Natural or Artificial Opening Endoscopic, Diagnostic (ICD-10-PCS; principal; 2020-01-02 09:45)
PROC: 0DBN8ZX Excision of Sigmoid Colon, Via Natural or Artificial Opening Endoscopic, Diagnostic (ICD-10-PCS; principal; 2020-01-02 09:45)
PROC: 0DBL8ZX Excision of Transverse Colon, Via Natural or Artificial Opening Endoscopic, Diagnostic (ICD-10-PCS; principal; 2020-01-02 09:45)
DX: R19.7 Diarrhea, unspecified (principal); K21.9 Gastro-esophageal reflux disease without esophagitis; K63.5 Polyp of colon; D12.3 Benign neoplasm of transverse colon; K64.8 Other hemorrhoids; E03.9 Hypothyroidism, unspecified; J45.909 Unspecified asthma, uncomplicated; E78.5 Hyperlipidemia, unspecified; I10 Essential (primary) hypertension; F41.9 Anxiety disorder, unspecified; F31.81 Bipolar II disorder; F17.210 Nicotine dependence, cigarettes, uncomplicated; Z79.899 Other long term (current) drug therapy
CPT/HCPCS: 88305; J2405; J2704; J7120

== ENCOUNTER → 2020-01-12 | Outpatient (CLI) | payer OTHER ==
[2020-01-12 15:36] LABS: CHOL/HDL RATIO 4.7; Cholesterol 257 mg/dL (50-200); HDL Cholesterol 55 mg/dL (>39); LDL/HDL RATIO 3.1; Low Density Lipoprotein Chol 169 mg/dL (0-110); Triglycerides 167 mg/dL (30-160); Very Low Density Lipoprot Chol 33 mg/dL (6-32)
== END | disposition home or self-care (01) ==
LOC: LAB SHORT 14:25 → LAB 14:25
PROVIDERS: Family Medicine
DX: E78.2 Mixed hyperlipidemia (principal)
CPT/HCPCS: 80061

== ENCOUNTER 2020-08-28 20:10 | Emergency (ER) | payer OTHER ==
[~2020-08-28] VITALS: Ht 160 cm; Wt 71.2 kg
[2020-08-28 20:41] LABS: Source, Urine Clean Catch
[2020-08-28 20:48] LABS: BASOPHILS PERCENT AUTO 1 % (0-2); EOSINOPHILS PERCENT AUTO 2 % (0-6); Hematocrit 41.1 % (33.0-51.0); Hemoglobin 14.2 g/dL (11.5-16.0); IMMATURE GRAN ABSOLUTE AUTO 0.05 K/mm3 (0.00-0.10); IMMATURE GRAN PERCENT AUTO 1 % (0-1); LYMPHOCYTES ABSOLUTE AUTO 2.64 K/mm3 (0.84-5.20); LYMPHOCYTES PERCENT AUTO 27 % (21-46); MONOCYTES ABSOLUTE AUTO 0.73 K/mm3 (0.16-1.47); MONOCYTES PERCENT AUTO 7 % (4-13); Mean Corpuscular HGB 33.5 pg (26.0-34.0); Mean Corpuscular HGB Conc 34.5 g/dL (31.5-36.5); Mean Corpuscular Volume 97 fL (80-100); Mean Platelet Volume 10.4 fL (9.1-12.4); NEUTROPHILS ABSOLUTE AUTO 6.17 K/mm3 (1.96-9.15); NEUTROPHILS PERCENT AUTO 62 % (41-73); Platelet Count 225 K/mm3 (150-400); RDW Coefficient Variation 13.3 % (11.7-14.2); RDW Standard Deviation 47.7 fL (35.1-46.3); Red Blood Cell Count 4.24 M/mm3 (3.80-5.20); White Blood Cell Count 9.89 K/mm3 (4.00-11.30)
[2020-08-28 20:49] LABS: Appearance, Urine Hazy (Clear); Bilirubin, Urine Neg (Neg); Blood, Urine Neg (Neg); Color, Urine Yellow (P-Yellow); Glucose Qualitative, Urine Neg (Neg); Ketones, Urine Neg (Neg); Leukocyte Esterase, Urine 2+ (Neg); Nitrite, Urine Neg (Neg); Protein, Urine 1+ (Neg); Urobilinogen, Urine NORM (Normal)
[2020-08-28 20:57] LABS: Bacteria Many /hpf; Red Blood Cells, Urine Not Seen /hpf (0-2); Squamous Epithelial Cells Mod /hpf (Few)
[2020-08-28 21:01] LABS: Bilirubin, Total 0.4 mg/dL (0.1-1.0); Bun/Creatinine Ratio 19.7 (12.0-20.0); Calcium, Blood 8.8 mg/dL (8.5-10.1); Creatinine, Blood 1.27 mg/dL (0.40-1.00); Globulin, Blood 4.1 g/dL (2.2-4.0); Potassium, Blood 4.2 mmol/L (3.5-5.5); Total Protein, Blood 8.1 g/dL (6.4-8.2)
[2020-08-28] MEDS ORDERED: CEFP200 PO (22:25)
== END 2020-08-28 22:45 | disposition home or self-care (01) ==
LOC: ER 20:10
PROVIDERS: Emergency Medicine
DX: N10 Acute pyelonephritis (principal); Z79.899 Other long term (current) drug therapy
CPT/HCPCS: 36415; 74177; 80053; 81001; 83690; 85025; 87086; 96374-59; 96375; 99284-25; J0696; J1885; J7030; Q9967

== ENCOUNTER 2020-12-07 14:53 | Emergency (ER) | payer OTHER ==
[~2020-12-07 14:53] MED LIST changes: +CEFP200 PO
== END 2020-12-07 15:59 | disposition home or self-care (01) ==
LOC: ER 14:53
DX: U07.1 COVID-19 (principal); Z79.899 Other long term (current) drug therapy
CPT/HCPCS: 99283

== ENCOUNTER 2020-12-27 14:40 | Inpatient (IN) | payer OTHER ==
[~2020-12-27] VITALS: Ht 160 cm; Wt 75.1 kg
[2020-12-27 15:39] LABS: BASOPHILS PERCENT AUTO 2 % (0-2); EOSINOPHILS ABSOLUTE AUTO 0.12 K/mm3 (0.00-0.68); EOSINOPHILS PERCENT AUTO 2 % (0-6); Hematocrit 34.3 % (33.0-51.0); Hemoglobin 11.7 g/dL (11.5-16.0); IMMATURE GRAN ABSOLUTE AUTO 0.09 K/mm3 (0.00-0.10); IMMATURE GRAN PERCENT AUTO 2 % (0-1); LYMPHOCYTES ABSOLUTE AUTO 1.54 K/mm3 (0.84-5.20); LYMPHOCYTES PERCENT AUTO 27 % (21-46); MONOCYTES ABSOLUTE AUTO 0.61 K/mm3 (0.16-1.47); MONOCYTES PERCENT AUTO 11 % (4-13); Mean Corpuscular HGB Conc 34.1 g/dL (31.5-36.5); Mean Corpuscular Volume 103 fL (80-100); Mean Platelet Volume 10.7 fL (9.1-12.4); NEUTROPHILS ABSOLUTE AUTO 3.22 K/mm3 (1.96-9.15); NEUTROPHILS PERCENT AUTO 57 % (41-73); Platelet Count 221 K/mm3 (150-400); RDW Coefficient Variation 13.8 % (11.7-14.2); RDW Standard Deviation 52.4 fL (35.1-46.3); Red Blood Cell Count 3.34 M/mm3 (3.80-5.20); White Blood Cell Count 5.68 K/mm3 (4.00-11.30)
[2020-12-27] MEDS ORDERED: LISI20 PO (15:56)
[2020-12-27] MEDS ORDERED: OMEP20ER PO (15:57)
[2020-12-27] MEDS ORDERED: METO25ER PO (15:57)
[2020-12-27] MEDS ORDERED: FOLI1 PO (15:58)
[2020-12-27] MEDS ORDERED: [UNRECOGNIZED DRUG - CODE] SL (15:59)
[2020-12-27] MEDS ORDERED: MIRT30 PO (16:00)
[2020-12-27 16:01] LABS: International Normalized Ratio 1.04; Prothrombin Time Results 11.2 Sec (9.7-11.5)
[2020-12-27] MEDS ORDERED: AMLO5 PO (16:01)
[2020-12-27 16:06] LABS: Albumin, Blood 3.6 g/dL (3.4-5.0); Albumin/Globulin Ratio 0.9 (0.8-1.8); Calcium, Blood 7.8 mg/dL (8.5-10.1); Creatinine, Blood 1.88 mg/dL (0.40-1.00); Globulin, Blood 4.1 g/dL (2.2-4.0); Total Protein, Blood 7.7 g/dL (6.4-8.2)
[2020-12-27 16:12] LABS: Source, Urine Clean Catch
[2020-12-27 16:15] LABS: Appearance, Urine Hazy (Clear); Blood, Urine 1+ (Neg); Color, Urine Amber (P-Yellow); Glucose Qualitative, Urine Neg (Neg); Ketones, Urine 2+ (Neg); Leukocyte Esterase, Urine 3+ (Neg); Nitrite, Urine Pos (Neg); Protein, Urine 2+ (Neg); Specific Gravity, Urine 1.015 (1.003-1.022); Urobilinogen, Urine 1+ (Normal)
[2020-12-27 16:23] LABS: Bilirubin, Urine 1+ (Neg); White Blood Cells, Urine TNTC /hpf (0-5)
[2020-12-27 16:24] LABS: Bacteria Many /hpf; Red Blood Cells, Urine 0-2 /hpf (0-2); Squamous Epithelial Cells Few /hpf (Few)
[2020-12-27 16:36] LABS: Potassium, Blood 3.4 mmol/L (3.5-5.5)
[2020-12-27 16:53] LABS: Cholesterol 329 mg/dL (50-200); Ethanol (Alcohol), Blood, Med 220 mg/dL; Triglycerides 330 mg/dL (30-160)
[2020-12-27 17:22] LABS: Base Excess Venous -1.5 mmol/L; Bicarbonate Venous 23.4 mmol/L (24.0-30.0); PCO2 Venous 38.4 mmHg (38-42); PO2 Venous 122 mmHg (38-42); pH Blood Venous 7.39 (7.34-7.37)
[2020-12-27 18:03] LABS: SARS-Cov-2 (COVID-19) PCR, MMC NEGATIVE (NEGATIVE)
--- NOTE | 2020-12-28 01:02 | NUR ---
ASSUMPTION OF CARE 20:05 PT ARRIVED TO MEDICAL UNIT FROM ER VIA ER BR[facility], WAS ABLE TO WALK WITH MINIMAL ASSISTANCE FROM TWO STAFF TO MANAGE IV LINES AND WEAKNESS/TREMORS. PT IS ON 2LPM VIA NASAL CANNULA. STATES THAT SHE IS FAMILIAR WITH WITHDRAWAL SYMPTOMS AND STATES THAT SHE IS WITHDRAWING FROM ALCOHOL. REPORTS PAIN IN THE ABD AND FLANK AREAS, NAUSEA/VOMITING FOR "A FEW DAYS" PRIOR TO ADMISSION. A&O X4. CONTINENT, ABLE TO USE CALL LIGHT TO CALL FOR ASSISTANCE TO BSC. BED ALARM IN PLACE FOR SAFETY. IV ACCESS IN THE RIGHT AC, RIGHT FA AND RIGHT HAND. TELEMETRY MONITORING IN PLACE, [employer] REPORTS SINUS IN THE 90'S. BED IN LOWEST POSITION. 0000: PT HAS BEEN MEDICATED PRN FOR TREMOR AND ANXIETY. AT THIS TIME, PT IS RESTING ON HER SIDE WITH THE LIGHTS OFF IN HER ROOM. NO SYMPTOMS OF VISIBLE TREMOR OR PT CALLING FOR ASSISTANCE. BED IN LOWEST POSITION, CALL LIGHT IN PLACE. BED ALARM ON FOR SAFETY. WILL CONTINUE TO MONITOR.
--- NOTE | 2020-12-28 02:37 | NUR ---
PRESENTLY PT IS RESTING/ASLEEP IN BED, LIGHTS OFF AND TV ON IN ROOM. NO TREMORS NOTED. CALL LIGHT WITHIN REACH. BED ALARM ON, BED IN LOWEST POSITION.
--- NOTE | 2020-12-28 04:00 | NUR ---
SHIFT SUMMARY MONITORING PT FOR CIWAS, ETOH WITHDRAWL. PT WILL SLEEP COMFORTABLY, THEN WAKES UP WITH URGE TO VOID AND BEGIN WITH ANXIETY/TREMORS. PRN MEDICATION WORKS TO PROVIDE RELIEF AND PT IS ABLE TO RETURN TO SLEEP. VSS. ON 1-2 LPM VIA NC DUE TO SOB. ABD DISTENDED, REPORTS PAIN THROUGH OUT. ONE EPISODE OF DIARRHEA. PT CALLS APPROPRIATELY FOR HELP WITH IV LINES (HAS A RECENT FALL HX "A FEW DAYS AGO", IN PT'S HOME). BED IN LOWEST POSITION, BED ALARM ON, CALL LIGHT WITHIN REACH.
[2020-12-28 05:41] LABS: Albumin/Globulin Ratio 0.9 (0.8-1.8); Bilirubin, Total 1.1 mg/dL (0.1-1.0); Bun/Creatinine Ratio 9.1 (12.0-20.0); Calcium, Blood 7.2 mg/dL (8.5-10.1); Creatinine, Blood 1.32 mg/dL (0.40-1.00); Globulin, Blood 3.3 g/dL (2.2-4.0); Potassium, Blood 3.9 mmol/L (3.5-5.5); Total Protein, Blood 6.3 g/dL (6.4-8.2)
--- NOTE | 2020-12-28 17:54 | NUR ---
LEFT AMA AT 1751 PT REPORTED THAT SHE IS LEAVING THE HOSPITAL BECAUSE SHE IS WORRIED ABOUT HER SICK PET AT HOME. PT VERBALIZED THAT SHE DOES NOT HAVE ANYBODY ELSE TO ASK FOR ASSISTANCE IN REGARDS TO HER PET. PT APPEARS TO BE TREMULOUS AND VERY ANXIOUS. EXPLAINED TO PATIENT THE RISK OF LEAVING AMA. PT VERBALIZED UNDERSTANDING OF RISK INVOLVED. THIS RN ALSO NOTIFIED DR. JOHANSEN VIA PHONE CALL, DR. JOHANSEN WENT AND VISITED PT IN THE ROOM TO DISCUSS WHY PATIENT WANTS TO LEAVE AMA. PT CONTINUES TO WANT TO LEAVE AMA. AMA FORM SIGNED BY PATIENT, WITNESSED AND SIGNED BY THIS RN AND DR. JOHANSEN. CHARGE NURSE ZOHAIB AND TANNER NOTIFIED. IV LINE AND TELE BOX DISCONTINUED.
== END 2020-12-28 17:36 | disposition left against medical advice (07) | DRG 439 ==
LOC: ER 14:40 → MEDS 17:17 → ERHOLD 17:17 → MEDS 20:00
PROVIDERS: Emergency Medicine; Physician Assistant; ADMIT Internal Medicine
DX: K85.20 Alcohol induced acute pancreatitis without necrosis or infection (principal); N39.0 Urinary tract infection, site not specified; N17.9 Acute kidney failure, unspecified; Z20.822 Contact with and (suspected) exposure to COVID-19; E87.6 Hypokalemia; E83.42 Hypomagnesemia; R79.89 Other specified abnormal findings of blood chemistry; E78.5 Hyperlipidemia, unspecified; E03.9 Hypothyroidism, unspecified; F10.20 Alcohol dependence, uncomplicated; J45.909 Unspecified asthma, uncomplicated; Z90.710 Acquired absence of both cervix and uterus
CPT/HCPCS: 36415; 74176; 80053; 81001; 82140; 82330; 82465; 82803; 83615; 83690; 83735; 84478; 85025; 85610; 87077; 87086; 87186; 93005; 93010; 96365; 96367; 96375; 96376; 99285-25; A9270; G0480; J0610; J0696; J1170; J1644; J2060; J2405; J3411; J3475; J3480; J7030; J7042; J7050; J7120; U0004

== ENCOUNTER 2021-05-05 11:47 | Emergency (ER) | payer OTHER ==
[~2021-05-05] VITALS: Ht 160 cm; Wt 68.0 kg
[~2021-05-05 11:47] MED LIST changes: +AMLO5 PO; +FOLI1 PO; +LISI20 PO; +LISINOPRIL-HCT1 EACH PO; +METO25ER PO; +MIRT30 PO; +OMEP20ER PO; +PRAZ5 PO; +Trazodone HCl300 MG PO; +ZOLPIDEM TARTRA10 MG PO; +[UNRECOGNIZED DRUG - CODE] SL
[2021-05-05 12:45] LABS: BASOPHILS ABSOLUTE AUTO 0.09 K/mm3 (0.00-0.23); BASOPHILS PERCENT AUTO 2 % (0-2); EOSINOPHILS ABSOLUTE AUTO 0.12 K/mm3 (0.00-0.68); EOSINOPHILS PERCENT AUTO 2 % (0-6); Hematocrit 38.9 % (33.0-51.0); Hemoglobin 13.2 g/dL (11.5-16.0); IMMATURE GRAN ABSOLUTE AUTO 0.04 K/mm3 (0.00-0.10); IMMATURE GRAN PERCENT AUTO 1 % (0-1); LYMPHOCYTES ABSOLUTE AUTO 1.73 K/mm3 (0.84-5.20); LYMPHOCYTES PERCENT AUTO 31 % (21-46); MONOCYTES ABSOLUTE AUTO 0.44 K/mm3 (0.16-1.47); MONOCYTES PERCENT AUTO 8 % (4-13); Mean Corpuscular HGB 33.6 pg (26.0-34.0); Mean Corpuscular HGB Conc 33.9 g/dL (31.5-36.5); Mean Corpuscular Volume 99 fL (80-100); Mean Platelet Volume 10.1 fL (9.1-12.4); NEUTROPHILS ABSOLUTE AUTO 3.11 K/mm3 (1.96-9.15); NEUTROPHILS PERCENT AUTO 56 % (41-73); Platelet Count 184 K/mm3 (150-400); RDW Coefficient Variation 15.1 % (11.7-14.2); RDW Standard Deviation 55.2 fL (35.1-46.3); Red Blood Cell Count 3.93 M/mm3 (3.80-5.20); White Blood Cell Count 5.53 K/mm3 (4.00-11.30)
[2021-05-05 12:49] LABS: Source, Urine Clean Catch
[2021-05-05 12:52] LABS: Appearance, Urine Clear (Clear); Bilirubin, Urine Neg (Neg); Blood, Urine Neg (Neg); Color, Urine Yellow (P-Yellow); Glucose Qualitative, Urine Neg (Neg); Ketones, Urine Neg (Neg); Leukocyte Esterase, Urine Neg (Neg); Nitrite, Urine Neg (Neg); Protein, Urine Neg (Neg); Specific Gravity, Urine 1.015 (1.003-1.022); Urobilinogen, Urine NORM (Normal)
[2021-05-05 13:11] LABS: Ethanol (Alcohol), Blood, Med 197 mg/dL
[2021-05-05 13:12] LABS: Alanine Aminotransfer (ALT/SGP 156 U/L (12-78); Albumin/Globulin Ratio 1.1 (0.8-1.8); Alk Phos 146 U/L (50-136); Anion Gap 9 mmol/L (6-16); Aspartate Aminotrans (AST/SGOT 223 U/L (12-37); Bilirubin, Total 0.4 mg/dL (0.1-1.0); Blood Urea Nitrogen 23 mg/dL (8-24); Bun/Creatinine Ratio 18.3 (12.0-20.0); CO2, Blood 22 mmol/L (21-32); Calcium, Blood 8.8 mg/dL (8.5-10.1); Chloride, Blood 108 mmol/L (98-108); Creatinine, Blood 1.26 mg/dL (0.40-1.00); Globulin, Blood 3.6 g/dL (2.2-4.0); Glomerular Filtration Rate 43 (60-); Glucose, Blood 116 mg/dL (70-99); Potassium, Blood 4.2 mmol/L (3.5-5.5); Sodium, Blood 139 mmol/L (136-145); Total Protein, Blood 7.6 g/dL (6.4-8.2); Troponin I <0.015 ng/mL (0.000-0.040)
[2021-05-05] MEDS ORDERED: Neurontin 300300 MG PO (15:30)
[2021-05-05] MEDS ORDERED: ONDA4ODT SL (15:30)
[2021-05-05] MEDS ORDERED: Naltrexone HCl50 MG PO (15:30)
== END 2021-05-05 16:19 | disposition home or self-care (01) ==
LOC: ER 11:47
PROVIDERS: Physician Assistant; Student in an Organized Health Care Education/Training Program
DX: K80.20 Calculus of gallbladder without cholecystitis without obstruction (principal); J45.909 Unspecified asthma, uncomplicated; Z79.899 Other long term (current) drug therapy; F17.210 Nicotine dependence, cigarettes, uncomplicated
CPT/HCPCS: 36415; 71046; 76705; 80053; 81003; 84484; 85025; 93005; 93010; 96374; 99284-25; A9270; G0480; J2405

== ENCOUNTER 2021-05-06 19:39 | Emergency (ER) | payer OTHER ==
[~2021-05-06] VITALS: Ht 160 cm; Wt 68.0 kg
[~2021-05-06 19:39] MED LIST changes: +Naltrexone HCl50 MG PO; +Neurontin 300300 MG PO; +ONDA4ODT SL
== END 2021-05-06 21:11 | disposition left against medical advice (07) ==
LOC: ER 19:39
DX: R10.11 Right upper quadrant pain (principal); Z53.21 Procedure and treatment not carried out due to patient leaving prior to being seen by health care provider
CPT/HCPCS: 76705; 99282-25

== ENCOUNTER 2021-05-27 15:22 | Emergency (ER) | payer OTHER ==
[~2021-05-27] VITALS: Ht 160 cm; Wt 68.0 kg
[2021-05-27 17:31] LABS: Albumin, Blood 4.3 g/dL (3.4-5.0); Albumin/Globulin Ratio 1.2 (0.8-1.8); Bilirubin, Total 0.5 mg/dL (0.1-1.0); Bun/Creatinine Ratio 13.9 (12.0-20.0); Creatinine, Blood 2.01 mg/dL (0.40-1.00); Globulin, Blood 3.6 g/dL (2.2-4.0); Potassium, Blood 4.1 mmol/L (3.5-5.5); Total Protein, Blood 7.9 g/dL (6.4-8.2)
== END 2021-05-27 17:54 | disposition left against medical advice (07) ==
LOC: ER 15:22
PROVIDERS: Physician Assistant
DX: R10.11 Right upper quadrant pain (principal); Z53.21 Procedure and treatment not carried out due to patient leaving prior to being seen by health care provider
CPT/HCPCS: 36415; 76705; 80053; 99284-25; G0480

== ENCOUNTER 2021-07-01 19:30 | Emergency (ER) | payer OTHER ==
[~2021-07-01] VITALS: Ht 157.5 cm; Wt 68.0 kg
[2021-07-01 20:38] LABS: BASOPHILS ABSOLUTE AUTO 0.11 K/mm3 (0.00-0.23); BASOPHILS PERCENT AUTO 2 % (0-2); EOSINOPHILS ABSOLUTE AUTO 0.13 K/mm3 (0.00-0.68); EOSINOPHILS PERCENT AUTO 2 % (0-6); Hematocrit 34.9 % (33.0-51.0); Hemoglobin 11.8 g/dL (11.5-16.0); IMMATURE GRAN ABSOLUTE AUTO 0.03 K/mm3 (0.00-0.10); IMMATURE GRAN PERCENT AUTO 1 % (0-1); LYMPHOCYTES ABSOLUTE AUTO 2.65 K/mm3 (0.84-5.20); LYMPHOCYTES PERCENT AUTO 46 % (21-46); MONOCYTES ABSOLUTE AUTO 0.54 K/mm3 (0.16-1.47); MONOCYTES PERCENT AUTO 9 % (4-13); Mean Corpuscular HGB 34.7 pg (26.0-34.0); Mean Corpuscular HGB Conc 33.8 g/dL (31.5-36.5); Mean Corpuscular Volume 103 fL (80-100); Mean Platelet Volume 10.7 fL (9.1-12.4); NEUTROPHILS ABSOLUTE AUTO 2.32 K/mm3 (1.96-9.15); NEUTROPHILS PERCENT AUTO 40 % (41-73); Platelet Count 181 K/mm3 (150-400); RDW Coefficient Variation 14.1 % (11.7-14.2); RDW Standard Deviation 53.4 fL (35.1-46.3); White Blood Cell Count 5.78 K/mm3 (4.00-11.30)
[2021-07-01 20:56] LABS: Albumin, Blood 4.3 g/dL (3.4-5.0); Albumin/Globulin Ratio 1.1 (0.8-1.8); Bilirubin, Total 0.8 mg/dL (0.1-1.0); Bun/Creatinine Ratio 15.4 (12.0-20.0); Calcium, Blood 9.3 mg/dL (8.5-10.1); Creatinine, Blood 1.36 mg/dL (0.40-1.00); Globulin, Blood 3.9 g/dL (2.2-4.0); Potassium, Blood 3.9 mmol/L (3.5-5.5); Total Protein, Blood 8.2 g/dL (6.4-8.2)
== END 2021-07-01 21:40 | disposition left against medical advice (07) ==
LOC: ER 19:30
PROVIDERS: Physician Assistant
DX: Z53.21 Procedure and treatment not carried out due to patient leaving prior to being seen by health care provider (principal)
CPT/HCPCS: 36415; 80053; 83690; 85025

== ENCOUNTER 2022-02-20 07:38 | Emergency (ER) | payer OTHER ==
[~2022-02-20] VITALS: Ht 157.5 cm; Wt 64.4 kg
[2022-02-20 09:27] LABS: BASOPHILS PERCENT AUTO 1 % (0-2); EOSINOPHILS ABSOLUTE AUTO 0.06 K/mm3 (0.00-0.68); EOSINOPHILS PERCENT AUTO 1 % (0-6); Hematocrit 37.2 % (33.0-51.0); Hemoglobin 12.3 g/dL (11.5-16.0); IMMATURE GRAN ABSOLUTE AUTO 0.04 K/mm3 (0.00-0.10); IMMATURE GRAN PERCENT AUTO 1 % (0-1); LYMPHOCYTES ABSOLUTE AUTO 1.72 K/mm3 (0.84-5.20); LYMPHOCYTES PERCENT AUTO 24 % (21-46); MONOCYTES ABSOLUTE AUTO 0.45 K/mm3 (0.16-1.47); MONOCYTES PERCENT AUTO 6 % (4-13); Mean Corpuscular HGB 34.2 pg (26.0-34.0); Mean Corpuscular HGB Conc 33.1 g/dL (31.5-36.5); Mean Corpuscular Volume 103 fL (80-100); Mean Platelet Volume 10.1 fL (9.1-12.4); NEUTROPHILS ABSOLUTE AUTO 4.83 K/mm3 (1.96-9.15); NEUTROPHILS PERCENT AUTO 67 % (41-73); Platelet Count 198 K/mm3 (150-400); RDW Coefficient Variation 13.3 % (11.7-14.2); RDW Standard Deviation 50.7 fL (35.1-46.3)
[2022-02-20 10:14] LABS: Albumin/Globulin Ratio 1.1 (0.8-1.8); Bilirubin, Total 0.5 mg/dL (0.1-1.0); Bun/Creatinine Ratio 26.1 (12.0-20.0); Calcium, Blood 8.8 mg/dL (8.5-10.1); Creatinine, Blood 1.34 mg/dL (0.40-1.00); Globulin, Blood 3.8 g/dL (2.2-4.0); Potassium, Blood 4.1 mmol/L (3.5-5.5); Total Protein, Blood 7.8 g/dL (6.4-8.2)
[2022-02-20] MEDS ORDERED: NAPR500 PO (10:38)
[2022-02-20] MEDS ORDERED: LIDO700A20 TOP (10:38)
== END 2022-02-20 11:30 | disposition home or self-care (01) ==
LOC: ER 07:38
PROVIDERS: Emergency Medicine
DX: S09.90XA Unspecified injury of head, initial encounter (principal); S20.212A Contusion of left front wall of thorax, initial encounter; I95.1 Orthostatic hypotension; F17.210 Nicotine dependence, cigarettes, uncomplicated; W19.XXXA Unspecified fall, initial encounter; Z91.81 History of falling; Z79.899 Other long term (current) drug therapy; Z79.890 Hormone replacement therapy
CPT/HCPCS: 36415; 70450; 71046; 80053; 85025; 93005; 93010; A9270; J2405; J3010

== ENCOUNTER → 2022-05-10 | Outpatient (CLI) | payer OTHER ==
[~2022-05-10] MED LIST changes: +LIDO700A20 TOP; +NAPR500 PO
[2022-05-11 11:15] LABS: Stool Occult Bld Immuno 1 Negative (NEGATIVE)
== END | disposition home or self-care (01) ==
LOC: LAB 10:00 → LAB SHORT 10:00
PROVIDERS: Student in an Organized Health Care Education/Training Program
DX: K92.1 Melena (principal)
CPT/HCPCS: 82274

== ENCOUNTER → 2022-05-17 | Outpatient (CLI) | payer OTHER | END | disposition home or self-care (01) | LOC: LAB SHORT 15:10 → LAB 15:10 | DX: M54.50 Low back pain, unspecified (principal); R33.9 Retention of urine, unspecified | CPT/HCPCS: 87077; 87086; 87186 ==

== ENCOUNTER 2022-05-25 14:56 | Emergency (ER) | payer OTHER ==
[~2022-05-25] VITALS: Ht 160 cm; Wt 65.8 kg
[2022-05-25 16:06] LABS: Albumin, Blood 4.4 g/dL (3.4-5.0); Albumin/Globulin Ratio 1.1 (0.8-1.8); Bilirubin, Total 0.5 mg/dL (0.1-1.0); Calcium, Blood 8.7 mg/dL (8.5-10.1); Magnesium, Blood 1.6 mg/dL (1.6-2.4); Potassium, Blood 4.3 mmol/L (3.5-5.5); Total Protein, Blood 8.4 g/dL (6.4-8.2)
[2022-05-25 16:10] LABS: BASOPHILS PERCENT AUTO 1 % (0-2); EOSINOPHILS ABSOLUTE AUTO 0.08 K/mm3 (0.00-0.68); EOSINOPHILS PERCENT AUTO 1 % (0-6); Hemoglobin 12.3 g/dL (11.5-16.0); IMMATURE GRAN ABSOLUTE AUTO 0.02 K/mm3 (0.00-0.10); IMMATURE GRAN PERCENT AUTO 0 % (0-1); LYMPHOCYTES ABSOLUTE AUTO 2.36 K/mm3 (0.84-5.20); LYMPHOCYTES PERCENT AUTO 31 % (21-46); MONOCYTES ABSOLUTE AUTO 0.55 K/mm3 (0.16-1.47); MONOCYTES PERCENT AUTO 7 % (4-13); Mean Corpuscular HGB 35.1 pg (26.0-34.0); Mean Corpuscular HGB Conc 34.2 g/dL (31.5-36.5); Mean Corpuscular Volume 103 fL (80-100); Mean Platelet Volume 10.2 fL (9.1-12.4); NEUTROPHILS ABSOLUTE AUTO 4.42 K/mm3 (1.96-9.15); NEUTROPHILS PERCENT AUTO 59 % (41-73); Platelet Count 195 K/mm3 (150-400); RDW Coefficient Variation 13.1 % (11.7-14.2); RDW Standard Deviation 49.1 fL (35.1-46.3); White Blood Cell Count 7.53 K/mm3 (4.00-11.30)
[2022-05-25 16:21] LABS: Source, Urine Clean Catch
[2022-05-25 16:25] LABS: Appearance, Urine Cloudy (Clear); Bilirubin, Urine Neg (Neg); Blood, Urine 1+ (Neg); Color, Urine Amber (P-Yellow); Glucose Qualitative, Urine Neg (Neg); Ketones, Urine 1+ (Neg); Leukocyte Esterase, Urine 1+ (Neg); Nitrite, Urine Neg (Neg); Protein, Urine 2+ (Neg); Specific Gravity, Urine 1.025 (1.003-1.022); Urobilinogen, Urine 1+ (Normal)
[2022-05-25 16:45] LABS: Bacteria Many /hpf; Red Blood Cells, Urine 0-2 /hpf (0-2); Squamous Epithelial Cells Few /hpf (Few)
[2022-05-25 16:46] LABS: Calcium Oxalate Crystals Mod /hpf; Transitional Epithelial Cells Few /hpf (0-Rare)
== END 2022-05-25 17:59 | disposition left against medical advice (07) ==
LOC: ER 14:56
PROVIDERS: Physician Assistant
DX: R10.9 Unspecified abdominal pain (principal); Z79.899 Other long term (current) drug therapy; Z79.890 Hormone replacement therapy; Z53.21 Procedure and treatment not carried out due to patient leaving prior to being seen by health care provider
CPT/HCPCS: 36415; 80053; 81001; 83735; 85025

== ENCOUNTER 2022-06-16 19:18 | Emergency (ER) | payer OTHER ==
[~2022-06-16] VITALS: Ht 160 cm; Wt 68.0 kg
[2022-06-16 22:25] LABS: BASOPHILS ABSOLUTE AUTO 0.09 K/mm3 (0.00-0.23); BASOPHILS PERCENT AUTO 2 % (0-2); EOSINOPHILS ABSOLUTE AUTO 0.06 K/mm3 (0.00-0.68); EOSINOPHILS PERCENT AUTO 1 % (0-6); Hematocrit 32.3 % (33.0-51.0); Hemoglobin 11.1 g/dL (11.5-16.0); IMMATURE GRAN ABSOLUTE AUTO 0.03 K/mm3 (0.00-0.10); IMMATURE GRAN PERCENT AUTO 1 % (0-1); LYMPHOCYTES PERCENT AUTO 37 % (21-46); MONOCYTES ABSOLUTE AUTO 0.52 K/mm3 (0.16-1.47); MONOCYTES PERCENT AUTO 11 % (4-13); Mean Corpuscular HGB 33.7 pg (26.0-34.0); Mean Corpuscular HGB Conc 34.4 g/dL (31.5-36.5); Mean Corpuscular Volume 98 fL (80-100); Mean Platelet Volume 10.8 fL (9.1-12.4); NEUTROPHILS ABSOLUTE AUTO 2.37 K/mm3 (1.96-9.15); NEUTROPHILS PERCENT AUTO 49 % (41-73); NRBC ABSOLUTE 0.02 K/mm3 (0.00-0.02); NRBC Auto 0.4 /100 WBC (0.0-0.2); Platelet Count 179 K/mm3 (150-400); RDW Standard Deviation 46.5 fL (35.1-46.3); Red Blood Cell Count 3.29 M/mm3 (3.80-5.20); White Blood Cell Count 4.87 K/mm3 (4.00-11.30)
[2022-06-16 22:44] LABS: Albumin, Blood 3.9 g/dL (3.4-5.0); Albumin/Globulin Ratio 1.1 (0.8-1.8); Bilirubin, Total 0.4 mg/dL (0.1-1.0); Bun/Creatinine Ratio 22.1 (12.0-20.0); Calcium, Blood 8.9 mg/dL (8.5-10.1); Creatinine, Blood 0.86 mg/dL (0.40-1.00); Globulin, Blood 3.7 g/dL (2.2-4.0); Potassium, Blood 3.8 mmol/L (3.5-5.5); Total Protein, Blood 7.6 g/dL (6.4-8.2)
[2022-06-16 22:56] LABS: International Normalized Ratio 1.06; Prothrombin Time Results 11.1 Sec (9.7-11.5)
== END 2022-06-17 00:24 | disposition home or self-care (01) ==
LOC: ER 19:18
PROVIDERS: Emergency Medicine
DX: F10.239 Alcohol dependence with withdrawal, unspecified (principal); Y90.3 Blood alcohol level of 60-79 mg/100 ml; Z79.899 Other long term (current) drug therapy
CPT/HCPCS: 36415; 80053; 83690; 85025; 85610; 93005; 93010; 96361; 96374; 99285-25; A9270; G0480; J2060; J7030

== ENCOUNTER 2022-10-28 07:16 | Day surgery (SDC) | payer OTHER ==
[~2022-10-28] VITALS: Ht 160 cm; Wt 59.9 kg
[2022-10-28] MEDS ORDERED: PANT20 PO (07:51)
[2022-10-28] MEDS ORDERED: HYDHCL25 (07:52)
[2022-10-28 09:36] VITALS: BP 108/67
== END 2022-10-28 09:20 | disposition home or self-care (01) ==
LOC: ORSCSDS 07:16
PROVIDERS: Internal Medicine Gastroenterology
PROC: 0DB98ZX Excision of Duodenum, Via Natural or Artificial Opening Endoscopic, Diagnostic (ICD-10-PCS; principal; 2022-10-28 08:45)
PROC: 0DB68ZX Excision of Stomach, Via Natural or Artificial Opening Endoscopic, Diagnostic (ICD-10-PCS; principal; 2022-10-28 08:45)
DX: R10.13 Epigastric pain (principal); K92.1 Melena; R14.0 Abdominal distension (gaseous); R63.4 Abnormal weight loss; K52.9 Noninfective gastroenteritis and colitis, unspecified; K21.9 Gastro-esophageal reflux disease without esophagitis; K59.00 Constipation, unspecified; F41.9 Anxiety disorder, unspecified; F31.81 Bipolar II disorder; I10 Essential (primary) hypertension; E78.5 Hyperlipidemia, unspecified; K70.10 Alcoholic hepatitis without ascites; F17.210 Nicotine dependence, cigarettes, uncomplicated; Z79.899 Other long term (current) drug therapy
CPT/HCPCS: 88305; 88342; J2250; J2704; J7120

== ENCOUNTER 2023-01-11 13:02 | Inpatient (IN) | payer OTHER ==
[~2023-01-11] VITALS: Ht 157.5 cm; Wt 56.6 kg
[~2023-01-11 13:02] MED LIST changes: +HYDHCL25 PO; +PANT20 PO
[2023-01-11 15:03] LABS: BASOPHILS ABSOLUTE AUTO 0.12 K/mm3 (0.00-0.23); BASOPHILS PERCENT AUTO 2 % (0-2); EOSINOPHILS ABSOLUTE AUTO 0.05 K/mm3 (0.00-0.68); EOSINOPHILS PERCENT AUTO 1 % (0-6); Hematocrit 30.6 % (33.0-51.0); Hemoglobin 10.2 g/dL (11.5-16.0); IMMATURE GRAN ABSOLUTE AUTO 0.02 K/mm3 (0.00-0.10); IMMATURE GRAN PERCENT AUTO 0 % (0-1); LYMPHOCYTES ABSOLUTE AUTO 1.34 K/mm3 (0.84-5.20); LYMPHOCYTES PERCENT AUTO 22 % (21-46); MONOCYTES ABSOLUTE AUTO 0.48 K/mm3 (0.16-1.47); MONOCYTES PERCENT AUTO 8 % (4-13); Mean Corpuscular HGB 29.9 pg (26.0-34.0); Mean Corpuscular HGB Conc 33.3 g/dL (31.5-36.5); Mean Corpuscular Volume 90 fL (80-100); NEUTROPHILS ABSOLUTE AUTO 4.06 K/mm3 (1.96-9.15); NEUTROPHILS PERCENT AUTO 67 % (41-73); Platelet Count 286 K/mm3 (150-400); RDW Coefficient Variation 12.7 % (11.7-14.2); RDW Standard Deviation 41.9 fL (35.1-46.3); Red Blood Cell Count 3.41 M/mm3 (3.80-5.20); White Blood Cell Count 6.07 K/mm3 (4.00-11.30)
[2023-01-11 15:43] LABS: Albumin, Blood 3.6 g/dL (3.4-5.0); Albumin/Globulin Ratio 0.8 (0.8-1.8); Bilirubin, Total 0.5 mg/dL (0.1-1.0); Bun/Creatinine Ratio 24.8 (12.0-20.0); Calcium, Blood 9.1 mg/dL (8.5-10.1); Creatinine, Blood 1.17 mg/dL (0.40-1.00); Globulin, Blood 4.4 g/dL (2.2-4.0)
[2023-01-12] VITALS (12 sets, daily range): BP systolic 96–136; BP diastolic 67–95
[2023-01-12 06:12] LABS: BASOPHILS ABSOLUTE AUTO 0.09 K/mm3 (0.00-0.23); BASOPHILS PERCENT AUTO 2 % (0-2); EOSINOPHILS PERCENT AUTO 2 % (0-6); Hematocrit 29.1 % (33.0-51.0); Hemoglobin 9.8 g/dL (11.5-16.0); IMMATURE GRAN ABSOLUTE AUTO 0.03 K/mm3 (0.00-0.10); IMMATURE GRAN PERCENT AUTO 1 % (0-1); LYMPHOCYTES ABSOLUTE AUTO 1.35 K/mm3 (0.84-5.20); LYMPHOCYTES PERCENT AUTO 27 % (21-46); MONOCYTES ABSOLUTE AUTO 0.49 K/mm3 (0.16-1.47); MONOCYTES PERCENT AUTO 10 % (4-13); Mean Corpuscular HGB 30.4 pg (26.0-34.0); Mean Corpuscular HGB Conc 33.7 g/dL (31.5-36.5); Mean Corpuscular Volume 90 fL (80-100); NEUTROPHILS ABSOLUTE AUTO 2.97 K/mm3 (1.96-9.15); NEUTROPHILS PERCENT AUTO 59 % (41-73); RDW Coefficient Variation 12.6 % (11.7-14.2); RDW Standard Deviation 41.6 fL (35.1-46.3); Red Blood Cell Count 3.22 M/mm3 (3.80-5.20); White Blood Cell Count 5.03 K/mm3 (4.00-11.30)
[2023-01-12 06:23] LABS: Albumin, Blood 3.3 g/dL (3.4-5.0); Albumin/Globulin Ratio 0.9 (0.8-1.8); Bilirubin, Total 0.9 mg/dL (0.1-1.0); Calcium, Blood 8.3 mg/dL (8.5-10.1); Creatinine, Blood 1.23 mg/dL (0.40-1.00); Globulin, Blood 3.5 g/dL (2.2-4.0); Magnesium, Blood 1.8 mg/dL (1.6-2.4); Potassium, Blood 4.5 mmol/L (3.5-5.5); Total Protein, Blood 6.8 g/dL (6.4-8.2)
[2023-01-12 06:24] LABS: Mean Platelet Volume 10.3 fL (9.1-12.4); Platelet Count 247 K/mm3 (150-400)
[2023-01-12 09:02] LABS: IMMATURE RETIC FRACTION 6.6 % (2.3-16.0); RETIC HGB EQUIVALENT 32.4 pg (28.20-36.60); RETICULOCYTE ABSOLUTE 0.081 M/mm3 (0.0200-0.1100); RETICULOCYTE COUNT PERCENT 2.64 % (0.50-2.50)
--- NOTE | 2023-01-12 11:35 | NUR ---
PT ADMITTED TO ICU 9 FROM ER AT 1030. PT IS A/O TO PERSON, PLACE, SITUATION, YEAR, AND MONTH. MARCUS T/O. SEE SAMMY. PLEASANT AND COOPERATIVE.
--- NOTE | 2023-01-12 17:54 | NUR ---
SUMMARY PT ADMITTED THIS AM FROM ER. ETOH WD SEE CIWA SCORING. PLEASANT AND COOPERATIVE. MANAGING WITH ATIVAN AND DID GET ONE DOSE OF LIBRIUM BEFORE IT WAS D/C'D EARLIER. SPOKE WITH DR. REYNAGA ABOUT D/C OF LIBRIUM AND D/T LIVER ENZYMES BEING SLIGHTLY ELEVATED SHE WANTS TO TRY TO MANAGE WITH ATIVAN. GOT PT TO BSC WITH 2 PERSON ASSIST. WEAK LE'S AND IMPULSIVE. BED ALARM ARMED FOR SAFETY.
--- NOTE | 2023-01-12 21:47 | NUR ---
ASSUMED CARE/TRANSFER OF CARE CARE WAS ASSUMED OF PT AT 1899, REPORT GIVEN BY JONNATHAN MATTA. PT SLEEPING WHEN STAFF NOT IN ROOM. PT A/O X4, ABLE TO ANSWER QUESTIONS APPROPRIATELY AND PARTICIPATE IN CONVERSATION. PT DENIED TACTILE AND VISUAL DISTURBANCES. PT STATED CONSTANT DULL RINGING IN EARS, STATES THIS ISN'T THEIR BASELINE. O2 SATS > 95% ON RA WHEN SPOT CHECKED. CARDIAC MONITORING REFLECTED SLIGHTLY IRREGULAR RHYTHM. SBP 110s. HR 70s. PT TREMULOUS. LR INFUSING IN R PIV. REPORT GIVEN TO LAZARA MATTA. PT TRANSFERED TO PCU AT 2134.
--- NOTE | 2023-01-12 22:27 | NUR ---
ASSUMPTION OF CARE/TRANSFER NOTE THIS RN RECEIVED REPORT FROM NOÉ MATTA IN THE ICU. PT TRANSFERRED TO PCU 8 AROUND 2144. PT ASSISTED TO BSC WITH 1-2P ASSIST. A&O X3-4. FORGETFUL. OCCASIONAL CONFUSION OF SPECIFIC DAY BUT KNOWS YEAR. CIWA 9-11 AT THIS TIME. TREMORS, HEADACHE, NAUSEA, AND AGGITATION/ANXIETY NOTED. PT DENIES VISUAL/TACTILE DISTURBANCES AT THIS TIME BUT NOTES OCCASIONAL RINGING IN EARS. MEDICATED PER EMAR. VITALS STABLE. BED ALARM ON D/T INTERMITTENT CONFUSION AND IMPULSIVENESS. BED IN LOWEST POSITION AND CALL LIGHT WITHIN REACH.
[2023-01-13] VITALS (7 sets, daily range): BP systolic 97–153; BP diastolic 65–104
--- NOTE | 2023-01-13 04:26 | NUR ---
SHIFT SUMMARY SEE PREVIOUS NOTE. MEDICATING PER EMAR. CIWA 9-11 MOST OF THE NIGHT. CIWA 16 ONCE, D/T HALLUCINATIONS. PT NOTED WITH RELIEF AFTER 4MG ATIVAN. PT DENIES HALLUCINATIONS AT THIS TIME. VITALS STABLE. BED ALARM ON FOR SAFETY. UP TO BSC WITH 1-2P ASSIST TO BSC. PT CONTINUES TO BE WEAK AND TREMULOUS. BED IN LOWEST POSITION AND CALL LIGHT WITHIN REACH. THIS RN WILL REPORT TO ONCOMING DAYSHIFT RN.
[2023-01-13 09:41] LABS: BASOPHILS PERCENT AUTO 2 % (0-2); EOSINOPHILS ABSOLUTE AUTO 0.13 K/mm3 (0.00-0.68); EOSINOPHILS PERCENT AUTO 3 % (0-6); Hematocrit 26.9 % (33.0-51.0); Hemoglobin 8.9 g/dL (11.5-16.0); IMMATURE GRAN ABSOLUTE AUTO 0.03 K/mm3 (0.00-0.10); IMMATURE GRAN PERCENT AUTO 1 % (0-1); LYMPHOCYTES PERCENT AUTO 27 % (21-46); MONOCYTES ABSOLUTE AUTO 0.47 K/mm3 (0.16-1.47); MONOCYTES PERCENT AUTO 10 % (4-13); Mean Corpuscular HGB 29.6 pg (26.0-34.0); Mean Corpuscular HGB Conc 33.1 g/dL (31.5-36.5); Mean Corpuscular Volume 89 fL (80-100); Mean Platelet Volume 10.3 fL (9.1-12.4); NEUTROPHILS ABSOLUTE AUTO 2.76 K/mm3 (1.96-9.15); NEUTROPHILS PERCENT AUTO 58 % (41-73); Platelet Count 198 K/mm3 (150-400); RDW Coefficient Variation 12.2 % (11.7-14.2); RDW Standard Deviation 39.8 fL (35.1-46.3); Red Blood Cell Count 3.01 M/mm3 (3.80-5.20); White Blood Cell Count 4.79 K/mm3 (4.00-11.30)
[2023-01-13 10:02] LABS: Percent Saturation 21.8 % (15.0-50.0)
[2023-01-13 10:05] LABS: Albumin/Globulin Ratio 0.9 (0.8-1.8); Bilirubin, Total 0.7 mg/dL (0.1-1.0); Bun/Creatinine Ratio 21.6 (12.0-20.0); Calcium, Blood 8.2 mg/dL (8.5-10.1); Creatinine, Blood 0.92 mg/dL (0.40-1.00); Globulin, Blood 3.3 g/dL (2.2-4.0); Phosphorus, Blood 2.2 mg/dL (2.5-4.9); Potassium, Blood 3.7 mmol/L (3.5-5.5); Total Protein, Blood 6.3 g/dL (6.4-8.2)
--- NOTE | 2023-01-13 17:08 | NUR ---
shift summary patient ciwa 8-15. patient medicated per ciwa protocol. patient is alert and oriented x2-3. patient has had auditory and visual hallunications, see people and animals in room and then they go away. the cups in her room where talking to her. patient once medicated will relieve these symptoms. see shift assessment and ciwa assessment. vital signs stable. tele sr. plan of care is up to date.
[2023-01-14] VITALS (9 sets, daily range): BP systolic 18–147; BP diastolic 68–98
--- NOTE | 2023-01-14 01:17 | NUR ---
PATIENT FALL EVENT PT SET BED ALARM OFF. THIS RN RAN TO ROOM WHEN BED ALARM WAS INITIATED. AT OO23 PT WAS FOUND ON GROUND ON LEFT SIDE. PT REPORTED HITTING HEAD ON GROUND. BP STABLE. ON RA WITH SPO2 >92%. SR WITH HR 60-70'S. CALL PLACED TO MD RICE REGARDING FALL BY BANK SECRECY ACT OFFICER LIANA. ORDERS FOR NORMA VEST, PO LIBRIUM, AND STAT HEAD CT. PT WOULD NOT WAIT FOR LIFT WHILE ON GROUND AND WAS STATING THAT SHE NEEDED TO USE THE BATHROOM AND BEGAN TO GET OFF THE GROUND UNASSISTED DESPITE THIS RN AND BANK SECRECY ACT OFFICER'S EDUCATION ABOUT USING A LIFT AFTER A FALL. RN'S ASSISTED PT INTO BED WITHOUT USE OF LIFT. THIS RN DOWN TO CT WITH PATIENT FOR IMAGING. NEURO DONE AT TIME OF FALL AND PRIOR TO THIS NOTE. PT REPORTING PAIN IN HEAD WHERE SHE HIT THE GROUND. ALERT AND ORIENTED TO PLACE, SELF, AND SITUATION. PT WITH CONFUSION ABOUT SPECIFIC DATE BUT KNOWS YEAR. EQUAL STRENGTH IN BILATERAL EXTREMETIES. CONTINUES TO BE WEAK. MILD TREMORS IMPROVED FROM PREVIOUS CIWA. PT CALM. PERRLA. NO NOTED NEURO CHANGES SINCE FALL. PT RESTING COMFORTABLY AT THIS TIME. STATED THAT SHE DID NOT WANT US TO CALL FIRENDS/FAMILY REGARDING FALL. PT IN NORMA VEST AND YELLOW FALL RISK GOWN. BED ALARM ON. BED IN LOWEST POSITION AND CALL LIGHT WITHIN REACH. PT REPORTS COMFORT AT THIS TIME.
[2023-01-14 04:11] LABS: Hematocrit 27.2 % (33.0-51.0); Hemoglobin 9.2 g/dL (11.5-16.0); Mean Corpuscular HGB 29.7 pg (26.0-34.0); Mean Corpuscular HGB Conc 33.8 g/dL (31.5-36.5); Mean Corpuscular Volume 88 fL (80-100); Mean Platelet Volume 10.8 fL (9.1-12.4); Platelet Count 197 K/mm3 (150-400); RDW Coefficient Variation 12.4 % (11.7-14.2); RDW Standard Deviation 39.8 fL (35.1-46.3); White Blood Cell Count 4.65 K/mm3 (4.00-11.30)
[2023-01-14 04:48] LABS: Albumin, Blood 2.9 g/dL (3.4-5.0); Albumin/Globulin Ratio 0.8 (0.8-1.8); Bilirubin, Total 0.6 mg/dL (0.1-1.0); Bun/Creatinine Ratio 17.2 (12.0-20.0); Calcium, Blood 8.1 mg/dL (8.5-10.1); Creatinine, Blood 0.82 mg/dL (0.40-1.00); Globulin, Blood 3.6 g/dL (2.2-4.0); Magnesium, Blood 1.5 mg/dL (1.6-2.4); Phosphorus, Blood 2.4 mg/dL (2.5-4.9); Potassium, Blood 3.8 mmol/L (3.5-5.5); Total Protein, Blood 6.5 g/dL (6.4-8.2)
--- NOTE | 2023-01-14 05:02 | NUR ---
SHIFT SUMMARY SEE PREVIOUS NOTE REGARDING FALL. PT MEDICATED FOR CIWA OF 9 WITH PO LIBRIUM. PT A&O X3, CONFUSED ABOUT SPECIFIC DAY BUT KNOWS YEAR. TREMORS APPEAR TO HAVE IMPROVED. PT LETHARGIC AT TIMES. NORMA VEST REMAINS IN PLACE. CAMERA IN ROOM. VITALS REMAIN STABLE AND UNCHANGED. NO NOTED CHANGES TO NEURO. PT ATTEMPTED TO HAVE A SNACK THIS AM BUT REPORTED NAUSEA AND STATES THAT IT HAS BEEN ONGOING WHENEVER SHE EATS; ASKED TO BE LEFT ALONE TO SLEEP. CIWA'S HAVE BEEN 9-15 DURING THIS SHIFT. PT WAS ABLE TO SLEEP MOST OF THIS SHIFT. PT BEING MEDICATED PER EMAR. 1-2P ASSIST TO BSC. BED ALARM ON. BED IN LOWEST POSITION AND CALL LIGHT WITHIN REACH. THIS RN WILL REPORT TO ONCOMING RN.
[2023-01-14 12:23] LABS: Anion Gap 10 mmol/L (6-16); Blood Urea Nitrogen 12 mg/dL (8-24); Bun/Creatinine Ratio 14.7 (12.0-20.0); CO2, Blood 25 mmol/L (21-32); Calcium, Blood 8.2 mg/dL (8.5-10.1); Chloride, Blood 92 mmol/L (98-108); Creatinine, Blood 0.82 mg/dL (0.40-1.00); Glomerular Filtration Rate 81 (60-); Glucose, Blood 99 mg/dL (70-99); Magnesium, Blood 1.8 mg/dL (1.6-2.4); Phosphorus, Blood 3.2 mg/dL (2.5-4.9); Potassium, Blood 3.2 mmol/L (3.5-5.5); Sodium, Blood 127 mmol/L (136-145)
--- NOTE | 2023-01-14 17:34 | NUR ---
SHIFT SUMMARY patient ciwa 6-11 throughout this rn shift. patient is alert and oriented x3-4. patient has moments of confusion. patient has been restraint free since 8am this morning, see restraint documentation. patient knows to push red bottom on the call light before getting up. patient is able to make needs known. see shift assessment for further detials. plan of care is up to date.
[2023-01-15 03:53] LABS: Hematocrit 29.2 % (33.0-51.0); Hemoglobin 9.9 g/dL (11.5-16.0)
[2023-01-15 04:00] VITALS: BP 111/74
[2023-01-15 04:13] LABS: Anion Gap 7 mmol/L (6-16); Blood Urea Nitrogen 12 mg/dL (8-24); Bun/Creatinine Ratio 14.6 (12.0-20.0); CO2, Blood 25 mmol/L (21-32); Calcium, Blood 8.4 mg/dL (8.5-10.1); Chloride, Blood 94 mmol/L (98-108); Creatinine, Blood 0.82 mg/dL (0.40-1.00); Glomerular Filtration Rate 81 (60-); Glucose, Blood 92 mg/dL (70-99); Magnesium, Blood 1.6 mg/dL (1.6-2.4); Phosphorus, Blood 2.8 mg/dL (2.5-4.9); Potassium, Blood 3.8 mmol/L (3.5-5.5); Sodium, Blood 126 mmol/L (136-145)
--- NOTE | 2023-01-15 06:22 | NUR ---
SHIFT SUMMARY PT REMAINS A&O X 2-3; ORIENTATION CONTINUES TO WAX AND WANE. PT CONTINUES TO FORGET SHE IS AT THE HOSPITAL AND OFTEN THINKS SHE IS AT HOME. EASILY REDIRECTED AND REORIENTED. PT PLEASANT AND COOPERATIVE WITH CARE. VSS; ALTHOUGH OF NOTE AFTER 2100 DOSE OF METOPROLOL HR SB 55 - 59 FOR A WHILE. PT NOW SR 60 - 70'S. PT DENIED SX DURING EPISODE. CIWA'S 5 - 9. MEDICATION PER EMAR. PT CONTINUES TO EXPRESS DESIRE TO STAY SOBER AND QUIT DRINKING. A FEW TIMES THROUGH NIGHT PT SET BED ALARM OFF BY "NEEDING TO USE RESTROOOM" AND FORGETTING SHE WAS AT THE HOSPITAL BUT OVERALL RESTED WELL W/OUT ANY ACUTE EVENTS. PT AMBULATING TO RESTROOM SBA W/FWW. WILL UPDATE ONCOMING RN
[2023-01-15 08:24] VITALS: BP 125/78
[2023-01-15 10:52] VITALS: BP 117/88
[2023-01-15 15:42] VITALS: BP 131/67
--- NOTE | 2023-01-15 16:55 | NUR ---
SHIFT SUMMARY: PT ALERT AND ORIENTED X3. ABLE TO TELL THIS RN NAME, , LOCATION. UNAWARE OF MONTH/YEAR AND CURRENT PRESIDENT. IMPULSIVE AT TIMES, BED ALARM AND VIRTUAL CAMERA IN ROOM FOR SAFETY. BP AND HR STABLE, AFEBRILE, SPO2 >98% ON ROOM AIR. RESPIRATIONS EVEN AND UNLABORED AT REST. PULSES STRONG AND EQUAL THROUHGOUT. DENIES CP/PRESSURE. CIWA 7-8 THIS SHIFT, MEDICATED PER EMAR. PT SBA TO AND FROM BATHROOM VIA FWW. ONE BM. BED IN LOW, CALL LIGHT IN REACH, WILL REPORT TO ONCOMING RN.
[2023-01-15 20:00] VITALS: BP 156/92
[2023-01-16] VITALS: BP 116/75
[2023-01-16 04:10] LABS: Hematocrit 29.6 % (33.0-51.0); Hemoglobin 9.9 g/dL (11.5-16.0)
[2023-01-16 04:30] VITALS: BP 112/874
[2023-01-16 04:43] LABS: Albumin, Blood 3.1 g/dL (3.4-5.0); Albumin/Globulin Ratio 0.8 (0.8-1.8); Bilirubin, Total 0.4 mg/dL (0.1-1.0); Bun/Creatinine Ratio 17.3 (12.0-20.0); Calcium, Blood 8.9 mg/dL (8.5-10.1); Creatinine, Blood 0.81 mg/dL (0.40-1.00); Globulin, Blood 3.7 g/dL (2.2-4.0); Magnesium, Blood 1.6 mg/dL (1.6-2.4); Potassium, Blood 3.7 mmol/L (3.5-5.5); Total Protein, Blood 6.8 g/dL (6.4-8.2)
--- NOTE | 2023-01-16 06:28 | NUR ---
SHIFT SUMMARY PT REMAINS A&O X 3-4; ORIENTATION SEEMS IMPROVED THIS SHIFT. LESS FREQUENT EPISODES OF CONFUSION. VSS. CIWA SCORES 5 - 10; MEDICATION PER MAR. PT ANXIOUS ON AND OFF ABOUT "LEAVING HERE AND HAVING TO GO HOME". PT EXPRESSES CONCERNS AND ANXIETY ABOUT NEXT STEPS FOR HER RECOVERY. THIS RN PROVIDED LISTENING AND ENCOURAGEMENT. PT EXPRESSES WISHES TO HAVE FURTHER HELP WITH RECOVERY BUT IS ALSO ANXIOUS ABOUT THIS WELL. NO ACUTE EVENTS OVERNIGHT. PT NOT TRYING TO GET OUT OF BED MUCH PREVIOUS, BUT OCCASSIONALLY FORGETTING THAT SHE NEEDS TO USE THE CALL LIGHT. WILL UPDATE ONCOMING RN.
--- NOTE | 2023-01-16 08:00 | NUR ---
INITIAL ASSESSMENT: Patient is awake sitting up in bed eating breakfast, she is alert and oriented. She is calm but states she is anxious and is asking for something for ansiety, ativan given with AM medications. Pt C/O SEAY, she rates it at a 6/10, she states she takes naproxen at home but doeesn't have anything ordered here, will ask MD for soemthing. She has some generalized weakness noted, pt states she hasn't been out of bed very much and is having difficulty finding the strenght to walk. She denies N/V, pt states she has not had much of an appetite for the last week but states she is hungry this morning. BT+. PPP. No edema present. Some bruising noted, patient has had falls at home and one in the hospital. VSS. Talked with patient about managing anxiety, pt states she has a script for Prozac and Hydroxazine but was not able to pick them up at the pharmacy before she came in this visit. AM meds given at this time. Patient denies other needs. Call light in reach.
[2023-01-16 08:10] VITALS: BP 124/82
--- NOTE | 2023-01-16 12:00 | NUR ---
Transfer: Patient has been down graded to medical status, she has been assigned [phone] to transfer to. Report given to Nila jo RN. Patient was transferred to [facility] via . Remote monitoring moved with patient.
--- NOTE | 2023-01-16 14:32 | NUR ---
SHIFT SUMMARY 1200 PT TX'D TO RM 348 FROM PCU 8 VIA W/C. PT ABLE TO TX SELF TO BED. PER REPORT, PT IS A&O X3, BUT FORGETFUL. BED ALARM ON FOR SAFETY. PT NOT WANTING TO EAT ANY LUNCH. PER REPORT, PT NOT EATING IN PCU EITHER. ADMITTED FOR ALCOHOL W/D. HX OF FALLS AT HOME W/BRUISING TO FACE. THERAPY TO RM TO WORK WITH PT AFTER LUNCH. SITTING UP TO EOB WATCHING TV. ABLE TO USE REMOTE. BED ALARM ON FOR SAFETY. CALL LT IN REACH.
[2023-01-16 15:07] VITALS: BP 109/81
[2023-01-16] MEDS ORDERED: PANT40 PO (16:08)
[2023-01-16] MEDS ORDERED: ALBU2.5V5 INH (16:08)
[2023-01-16] MEDS ORDERED: Nicoderm Cq1 EAC1 TOP (16:08)
[2023-01-16] MEDS ORDERED: MULVITA PO (16:10)
[2023-01-16] MEDS ORDERED: Vitamin B-650 MG PO (16:10)
[2023-01-16] MEDS ORDERED: B-1100 M1 PO (16:10)
[2023-01-16] MEDS ORDERED: STIOLTO RESPIMAT4 G1 INH (16:11)
[2023-01-16] MEDS ORDERED: Librium25 MG PO (16:13)
--- NOTE | 2023-01-16 16:47 | NUR ---
DISCHARGE ORDERS PLACED. HARD SCRIPT FOR HOME MEDICATIONS COPIED AND THEN GIVEN TO PT WITH D/C INSTRUCTIONS. D/C INSTRUCTIONS REVIEWED WITH PT; VERBALIZED UNDERSTANDING. PT'S S/O HERE TO PICK HER UP. BELONGINGS GATHERED AND TAKEN BY PT. PT ASSISTED OUT TO S/O'S CAR VIA W/C.
== END 2023-01-16 16:43 | disposition home or self-care (01) | DRG 897 ==
LOC: ER 13:02 → ERHOLD 20:01 → ICUE 01-12 10:21 → PCU 01-12 21:37 → MEDS 01-16 11:48
PROVIDERS: Family Medicine; Nurse Practitioner Acute Care; Student in an Organized Health Care Education/Training Program; ADMIT Internal Medicine
PROC: HZ2ZZZZ Detoxification Services for Substance Abuse Treatment (ICD-10-PCS; principal; 2023-01-11)
DX: F10.239 Alcohol dependence with withdrawal, unspecified (principal); E87.1 Hypo-osmolality and hyponatremia; K86.0 Alcohol-induced chronic pancreatitis; R94.31 Abnormal electrocardiogram [ECG] [EKG]; E78.5 Hyperlipidemia, unspecified; K76.0 Fatty (change of) liver, not elsewhere classified; E83.39 Other disorders of phosphorus metabolism; E83.42 Hypomagnesemia; E03.9 Hypothyroidism, unspecified; F41.9 Anxiety disorder, unspecified; D63.1 Anemia in chronic kidney disease; J45.909 Unspecified asthma, uncomplicated; W19.XXXA Unspecified fall, initial encounter; K70.30 Alcoholic cirrhosis of liver without ascites; F31.9 Bipolar disorder, unspecified; N18.30 Chronic kidney disease, stage 3 unspecified; I12.9 Hypertensive chronic kidney disease with stage 1 through stage 4 chronic kidney disease, or unspecified chronic kidney disease; Z90.49 Acquired absence of other specified parts of digestive tract; Z98.890 Other specified postprocedural states; Z79.899 Other long term (current) drug therapy; Z79.890 Hormone replacement therapy; Z90.710 Acquired absence of both cervix and uterus
CPT/HCPCS: 36415; 70450; 80053; 80069; 82140; 82607; 82728; 82746; 82947; 83010; 83540; 83550; 83735; 84100; 85014; 85018; 85025; 85027; 85045; 94640; 94664; 94760; 96372-59; 96374; 96375; 96376; 97116; 97161; 99285-25; A9270; J1644; J2060; J2405; J2560; J3411; J3475; J3480; J7030; J7050; J7060; J7120

== ENCOUNTER 2023-01-23 13:29 | Inpatient (IN) | payer OTHER ==
[~2023-01-23] VITALS: Ht 160 cm; Wt 49.8 kg
[~2023-01-23 13:29] MED LIST changes: +ALBU2.5V5 INH; +B-1100 M1 PO; +Librium25 MG PO; +MULVITA PO; +Nicoderm Cq1 EAC1 TOP; +STIOLTO RESPIMAT4 G1 INH; +Vitamin B-650 MG PO
[2023-01-23 14:29] LABS: Magnesium, Blood 1.7 mg/dL (1.6-2.4)
[2023-01-23 14:30] LABS: Albumin, Blood 3.9 g/dL (3.4-5.0); Albumin/Globulin Ratio 0.9 (0.8-1.8); Bilirubin, Total 0.3 mg/dL (0.1-1.0); Bun/Creatinine Ratio 16.4 (12.0-20.0); Calcium, Blood 10.2 mg/dL (8.5-10.1); Creatinine, Blood 2.93 mg/dL (0.40-1.00); Globulin, Blood 4.2 g/dL (2.2-4.0); Potassium, Blood 3.9 mmol/L (3.5-5.5); Total Protein, Blood 8.1 g/dL (6.4-8.2)
[2023-01-23 14:47] LABS: BASOPHILS ABSOLUTE AUTO 0.13 K/mm3 (0.00-0.23); BASOPHILS PERCENT AUTO 2 % (0-2); EOSINOPHILS ABSOLUTE AUTO 0.08 K/mm3 (0.00-0.68); EOSINOPHILS PERCENT AUTO 1 % (0-6); Hematocrit 36.1 % (33.0-51.0); Hemoglobin 11.8 g/dL (11.5-16.0); IMMATURE GRAN ABSOLUTE AUTO 0.04 K/mm3 (0.00-0.10); IMMATURE GRAN PERCENT AUTO 1 % (0-1); LYMPHOCYTES ABSOLUTE AUTO 1.61 K/mm3 (0.84-5.20); LYMPHOCYTES PERCENT AUTO 23 % (21-46); MONOCYTES ABSOLUTE AUTO 0.79 K/mm3 (0.16-1.47); MONOCYTES PERCENT AUTO 11 % (4-13); Mean Corpuscular HGB 29.5 pg (26.0-34.0); Mean Corpuscular HGB Conc 32.7 g/dL (31.5-36.5); Mean Corpuscular Volume 90 fL (80-100); Mean Platelet Volume 11.5 fL (9.1-12.4); NEUTROPHILS PERCENT AUTO 63 % (41-73); Platelet Count 290 K/mm3 (150-400); RDW Coefficient Variation 12.6 % (11.7-14.2); RDW Standard Deviation 41.6 fL (35.1-46.3); White Blood Cell Count 7.05 K/mm3 (4.00-11.30)
[2023-01-23 19:54] LABS: U Amphetamine Screen Not Detected; U Barbituate Screen DETECTED; U Benzodiazapine Screen DETECTED; U Buprenorphine Screen Not Detected; U Cannabinoids Screen DETECTED; U Cocaine Screen Not Detected; U Methadone Screen Not Detected; U Methamphetamine Screen Not Detected; U Opiates Screen Not Detected; U Oxycodone Screen Not Detected; U Phencyclidine Screen Not Detected; U Propoxyphene Screen Not Detected
[2023-01-23 21:01] VITALS: BP 94/80
[2023-01-24] VITALS (7 sets, daily range): BP systolic 94–146; BP diastolic 66–96
--- NOTE | 2023-01-24 02:34 | NUR ---
ARRIVAL TO PCU NOTE: RECEIVED REPORT FROM ACCESS ANALYST SANDY HAMILTON, PT SHORTLY ARRIVED TO PCU ~2054 YESTERDAY PM. TRANSFERRED FROM [facility] TO PCU BED VIA SLIDE SHEET. A/Ox3 AND COOPERATIVE WITH CARE. ANSWERS QUESTIONS APPROPRIATELY. VERY TIRED/LETHARGIC, BUT EASILY AROUSABLE TO BOTH VERBAL AND TACTILE STIMULI. AFEBRILE AND VERY WEAK/DECONDITIONED, BUT NO UNILATERAL WEAKNESS OR FACIAL DROOP NOTED. DENIES ANY TINGLING OR SENSATION LOSS, BUT DOES REPORT HX OF NEUROPATHY IN BLE. TREMORS IN BUE NOTED WITH REPORTS OF MILD HEADACHE AND LIGHT SENSITIVITY. DENIES ANY ALCOHOL INTAKE FOR 4 WEEKS . NO HALLUCINATIONS OR VISUAL FIELD CHANGES REPORTED. CARDIAC, ARRIVED IN SR 80-90'S WITH NO REPORTS OF CP OR PRESSURE. SBP WAS SOFT RANGING 90-100'S. REPORTS INTERMITTENT DIZZINESS WHILE WALKING AT HOME AND LOSING HER BALANCE OFTEN. RESPIRATORY, ARRIVED ON RA WITH SPO2 MAINTAINING >95%. DENIES ANY SOB OR DYSPNEA WHILE AT REST. GI/, DENIES N/V WELL ABD TENDERNESS. BS PRESENT IN ALL QUADRANTS, BUT HYPOACTIVE. ASSESSED PT FOR RISKS OF ANY IGNITION SOURCES WELL BEHAVIORS FOR INCREASED RISKS OF FIRE DANGER. PT EDUCATED ON COMMON SOURCES OF IGNITION WELL NEED TO KEEP A SAFE ENVIRONMENT. PT IS A CURRENT EVERYDAY SMOKER, BUT REPORTS MY FRIENDS TOOK MY ROUTE DELIVERER AND CIGARETTES WITH THEM IN THE ER . PT VOICED UNDERSTANDING OF TEACHING PROVIDED. NO NEW ORDERS AT THIS TIME. ERON ALCALA OF THIS NOTE.
[2023-01-24 04:10] LABS: Hematocrit 32.5 % (33.0-51.0); Hemoglobin 10.3 g/dL (11.5-16.0); Mean Corpuscular HGB 28.8 pg (26.0-34.0); Mean Corpuscular HGB Conc 31.7 g/dL (31.5-36.5); Mean Corpuscular Volume 91 fL (80-100); Mean Platelet Volume 10.6 fL (9.1-12.4); Platelet Count 246 K/mm3 (150-400); RDW Coefficient Variation 12.5 % (11.7-14.2); RDW Standard Deviation 41.3 fL (35.1-46.3); Red Blood Cell Count 3.58 M/mm3 (3.80-5.20); White Blood Cell Count 5.09 K/mm3 (4.00-11.30)
[2023-01-24 04:47] LABS: Bun/Creatinine Ratio 22.4 (12.0-20.0); Creatinine, Blood 1.92 mg/dL (0.40-1.00); Magnesium, Blood 1.6 mg/dL (1.6-2.4)
--- NOTE | 2023-01-24 05:22 | NUR ---
SHIFT SUMMARY NO ACUTE CHANGES SINCE ARRIVAL TO PCU NOTE. SEE NOTE FOR DETAILS. CONTINUES TO REPORT DIZZINESS WITH AMBULATION AND IS VERY WEAK ON HER FEET. NS INFUSING PER EMAR T/O THE SHIFT. CONTINUES TO REPORT LIGHT SENSITIVITY WITH HEADACHE, BUT DENIES ANY VISUAL OR AUDITORY HALLUCINATIONS. NO N/V REPORTED. NO NEW ORDERS AT THIS TIME, WILL REPORT TO ONCOMING RN. VSS, NADN OF THIS NOTE.
--- NOTE | 2023-01-24 15:33 | NUR ---
SHIFT SUMMARY: PT HAS BEEN ALERT, ORIENTED TO SELF, MONTH/YEAR, SITUATION. PT HAS BEEN UNCLEAR/FORGETFUL OF LOCATION. L PUPIL LARGER THAN R PUPIL, BUT EQUAL RESPONSE TO LIGHT. PT MAEW, GENERALIZED WEAKNESS AND OCCASIONALLY TREMULOUS. PT DENIES SOB, O2 SATS >93% ON RA. SR ON MONITOR W/RATE 70s-80s, PT DENIES CP. PT HAS BEEN ONE PERSON ASSIST TO BSC, DOES AMBULATE TO BATHROOM x1 W/FWW. SMALL BM THIS SHIFT. FLUIDS INFUSING PER ORDERS. AT THIS TIME, PT RESTING QUIETLY IN BED W/CALL LIGHT IN REACH. REPORT HAS BEEN GIVEN TO SIGRID THORNTON.
[2023-01-25 03:59] VITALS: BP 103/72
--- NOTE | 2023-01-25 04:35 | NUR ---
SHIFT SUMMARY PT A&Ox3-4, WAKES UP FORGETFUL OF LOCATION AT TIMES. BP STABLE, SINUSN 80's, DENIES CP/PRESSURE. SpO2> 92% RA, DENIES SOB. PT 1 ASSIST TO BSC, CONTINENT OF URINE AND BOWEL. NO S/S OF WITHDRAWAL. NO C/O PAIN. NO OTHER EVENTS, WILL REPORT TO ONCOMING RN.
[2023-01-25 07:26] LABS: BASOPHILS ABSOLUTE AUTO 0.13 K/mm3 (0.00-0.23); BASOPHILS PERCENT AUTO 3 % (0-2); EOSINOPHILS ABSOLUTE AUTO 0.13 K/mm3 (0.00-0.68); EOSINOPHILS PERCENT AUTO 3 % (0-6); Hematocrit 30.3 % (33.0-51.0); Hemoglobin 10.1 g/dL (11.5-16.0); IMMATURE GRAN ABSOLUTE AUTO 0.04 K/mm3 (0.00-0.10); IMMATURE GRAN PERCENT AUTO 1 % (0-1); LYMPHOCYTES ABSOLUTE AUTO 1.59 K/mm3 (0.84-5.20); LYMPHOCYTES PERCENT AUTO 34 % (21-46); MONOCYTES ABSOLUTE AUTO 0.44 K/mm3 (0.16-1.47); MONOCYTES PERCENT AUTO 9 % (4-13); Mean Corpuscular HGB 29.5 pg (26.0-34.0); Mean Corpuscular HGB Conc 33.3 g/dL (31.5-36.5); Mean Corpuscular Volume 89 fL (80-100); Mean Platelet Volume 11.3 fL (9.1-12.4); NEUTROPHILS ABSOLUTE AUTO 2.34 K/mm3 (1.96-9.15); NEUTROPHILS PERCENT AUTO 50 % (41-73); Platelet Count 217 K/mm3 (150-400); RDW Coefficient Variation 12.5 % (11.7-14.2); RDW Standard Deviation 40.1 fL (35.1-46.3); Red Blood Cell Count 3.42 M/mm3 (3.80-5.20); White Blood Cell Count 4.67 K/mm3 (4.00-11.30)
[2023-01-25 07:36] VITALS: BP 144/94
[2023-01-25 07:42] LABS: Albumin, Blood 2.9 g/dL (3.4-5.0); Anion Gap 7 mmol/L (6-16); Blood Urea Nitrogen 19 mg/dL (8-24); CO2, Blood 23 mmol/L (21-32); Calcium, Blood 8.3 mg/dL (8.5-10.1); Chloride, Blood 110 mmol/L (98-108); Glomerular Filtration Rate 64 (60-); Glucose, Blood 87 mg/dL (70-99); Phosphorus, Blood 2.5 mg/dL (2.5-4.9); Potassium, Blood 3.8 mmol/L (3.5-5.5); Sodium, Blood 140 mmol/L (136-145)
[2023-01-25 12:11] VITALS: BP 123/83
--- NOTE | 2023-01-25 12:19 | NUR ---
AM NOTE: RECEIVED REPORT FROM SIGRID HERNÁNDEZ THIS AM AND ASSUMED CARE OF PT AT APPROX 0715. PT LETHARGIC, CONFUSED RE: LOCATION BUT ORIENTED TO SELF, SITUATION, MONTH/YEAR. PT DENIES SOB OR CP. O2 SATS >93% ON RA, SR ON MONITOR W/RATE 80s. PT AMBULATES SLOWLY W/1 PERSON ASSIST/GAIT BELT/FWW. FLUIDS INFUSING PER ORDERS. PT REPORTS LITTLE SLEEP LAST NOC, REQUESTS TO HOLD BKFST TRAY SO SHE CAN SLEEP. PT SLEEPS THROUGH PART OF THE MORNING AND APPEARS MORE CONFUSED UPON WAKING, FORGETS SHE IS IN THE HOSPITAL AND BELIEVES SHE IS AT "DELANEY's HOUSE". PT REMINDED SHE IS IN HOSPITAL, THEN ASKS FOR "SHIRT AND JEANS" SO SHE CAN GET DRESSED AND "GET OUT OF HERE". PT REMINDED ABOUT LOCATION AND REASON, HER CONFUSION APPEARS TO CLEAR A LITTLE BUT WILL CONTINUE TO MONITOR. PROVIDER IS AWARE AND HAS EVALUATED PT.
--- NOTE | 2023-01-25 13:02 | NUR ---
Pt resting in bed upon arrival. Pt's Primary RN Gianni initially at bedside. Pt A&OX3. Pt unable to verbalize appropriate reason for hospital stay. Pt does appear confused as her memory appears to be jumbled and gets events confused. Pt also has a tendancy to engage in non sensical conversation. Pt denies pain, dyspnea, and anxiety. Pt reports not being , has 2 sons, one who lives local and another who lives in [place]. Pt reports having a boyfriend who is supportive. Continued supportive visit and reviewed plan of care. Palliative Care will remain available
[2023-01-25 15:50] VITALS: BP 157/95
--- NOTE | 2023-01-25 18:26 | NUR ---
Assumed care of patient at approx 1530. Pt has become more annxious and aggitated, CIWA started, >8, medicated per emar. No other acute changes noted. Will continue to monitor.
[2023-01-25 20:40] VITALS: BP 126/84
[2023-01-26] VITALS (7 sets, daily range): BP systolic 128–164; BP diastolic 85–101
[2023-01-26 04:26] LABS: BASOPHILS ABSOLUTE AUTO 0.14 K/mm3 (0.00-0.23); BASOPHILS PERCENT AUTO 2 % (0-2); EOSINOPHILS ABSOLUTE AUTO 0.15 K/mm3 (0.00-0.68); EOSINOPHILS PERCENT AUTO 3 % (0-6); Hematocrit 29.4 % (33.0-51.0); Hemoglobin 9.5 g/dL (11.5-16.0); IMMATURE GRAN ABSOLUTE AUTO 0.02 K/mm3 (0.00-0.10); IMMATURE GRAN PERCENT AUTO 0 % (0-1); LYMPHOCYTES ABSOLUTE AUTO 1.97 K/mm3 (0.84-5.20); LYMPHOCYTES PERCENT AUTO 33 % (21-46); MONOCYTES ABSOLUTE AUTO 0.55 K/mm3 (0.16-1.47); MONOCYTES PERCENT AUTO 9 % (4-13); Mean Corpuscular HGB 28.7 pg (26.0-34.0); Mean Corpuscular HGB Conc 32.3 g/dL (31.5-36.5); Mean Corpuscular Volume 89 fL (80-100); Mean Platelet Volume 11.4 fL (9.1-12.4); NEUTROPHILS ABSOLUTE AUTO 3.21 K/mm3 (1.96-9.15); NEUTROPHILS PERCENT AUTO 53 % (41-73); Platelet Count 243 K/mm3 (150-400); RDW Coefficient Variation 12.5 % (11.7-14.2); RDW Standard Deviation 40.7 fL (35.1-46.3); Red Blood Cell Count 3.31 M/mm3 (3.80-5.20); White Blood Cell Count 6.04 K/mm3 (4.00-11.30)
[2023-01-26 04:48] LABS: Albumin, Blood 2.7 g/dL (3.4-5.0); Anion Gap 6 mmol/L (6-16); Blood Urea Nitrogen 12 mg/dL (8-24); Bun/Creatinine Ratio 12.6 (12.0-20.0); CO2, Blood 22 mmol/L (21-32); Calcium, Blood 8.3 mg/dL (8.5-10.1); Chloride, Blood 112 mmol/L (98-108); Creatinine, Blood 0.95 mg/dL (0.40-1.00); Glomerular Filtration Rate 68 (60-); Glucose, Blood 95 mg/dL (70-99); Phosphorus, Blood 2.7 mg/dL (2.5-4.9); Potassium, Blood 3.2 mmol/L (3.5-5.5); Sodium, Blood 140 mmol/L (136-145)
--- NOTE | 2023-01-26 05:21 | NUR ---
SHIFT SUMMARY PT A&Ox3 TO SELF, DATE, AND SITUATION. PT STATES THAT SHE IS AT THE HOSPITAL BUT IS ASKING QUESTIONS AND MAKING STATEMENTS THAT DO NOT CORRELATE WITH BEING IN THE HOSPITAL. BP STABLE, NOT ON TELE, HR 80's, DENIES CP/PRESSURE. SpO2> 92% RA, DENIES SOB. PT 1 ASSIST TO BSC, CONTINENT OF URINE AND BOWEL. CIWA RANGING 6-15, MANAGED PER EMAR. NO C/O PAIN. NO OTHER EVENTS, WILL REPORT TO ONCOMING RN.
--- NOTE | 2023-01-26 12:05 | NUR ---
PT UPDATE: PT ALERT THIS AM, ORIENTED TO SELF, DATE, AND SITUATION. STATES THAT SHE IS "AT THE HOSPITAL WITHDRAWING FROM ALCOHOL" BUT FREQUENTLY MAKES STATEMENTS INDICATING SHE BELIEVES SHE IS AT HOME. CIWAS 14-16, MEDICATED PER EMAR. PT STATES THAT SHE BELIEVES THIS RN IS TRYING TO "POISON" HER AND "MAKE ME HIGH". PT EDUCATED ON IMPORTANCE OF PO MEDICATION COMPLIANCE. PT REDIRECTABLE AT TIMES, ANXIOUS AND AGITATED FREQUENTLY. PT REFUSED TO EAT BREAKFAST AND LUNCH. 1:1 SITTER AT BEDSIDE FOR PT SAFETY DUE TO CONFUSION, AGITATION, AND FALL RISK. CALL LIGHT WITHIN REACH, BED IN LOWEST POSITION.
--- NOTE | 2023-01-26 14:03 | NUR ---
PHYSICIAN CONTACT PT ATTEMPTING TO CLIMB OUT OF BED STATING "I NEED TO FIND MY DRESSER, SOMEONE STOLE IT" AND "I NEED TO SIT ON THE FLOOR TO LOOK THROUGH MY DRAWERS". THIS RN EDUCATED PT ON SAFETY; CIWA REASSESSED AND MEDICATIONS ADMINISTERED PER EMAR. MD SALAZAR AT BEDSIDE THIS PM. PT LYING DOWN IN BED, CIWA 13. ORDERS RECEIVED FOR STATUS CHANGE TO PCU WITH TELEMETRY AND CONTINUOUS SPO2 MONITORING. UPDATED ORDERS RECEIVED FOR ETOH WITHDRAWAL, SEE EMAR. 1:1 SITTER AT BEDSIDE WITH PATIENT. BED ALARM ON, BED IN LOWEST POSITION.
--- NOTE | 2023-01-26 15:51 | NUR ---
PT GLASSES PT REPORTS LOSING HER GLSSES/SUNGLASSES AT THE HOSPITAL AND STATES "I GUESS I HAVE TO HAVE A CONVERSATION WITH THE HOSPITAL ABOUT IT." PT THEN TOLD THIS RN THAT SHE WAS "RUSHING OUT OF THE HOUSE AND FORGOT TO GRAB THEM." THIS RN CLARIFIED THAT PT NEVER BROUGHT THESE BELONGINGS WITH HER; PT NODDED IN AGREEMENT.
--- NOTE | 2023-01-26 16:40 | NUR ---
END OF SHIFT NOTE: PT ALERT T/O SHIFT, ORIENTED TO SELF, TIME, AND SITUATION. PT CONTINUES TO BELIEVE SHE IS AT HOME. CIWA'S 13-18, MEDICATING PER EMAR. 1:1 SITTER PRESENT AT BEDSIDE FOR PT SAFETY D/T ALTERED MENTATION/CONFUSION. HR 80-100'S, SBP 140-150'S. SPO2 >95% ON RA, NO VISIBLE DYSPNEA OR ACCESSORY MUSCLE USE. PT 1P ASSIST TO BSC, CONTINENT OF URINE. NO BM THIS SHIFT. PT HAS DENIED ALL FOOD, HAS HAD MINIMAL LIQUID INTAKE. NS INFUSING PER EMAR. CALL LIGHT WITHIN REACH, BED IN LOWEST POSITION. WILL REPORT TO ONCOMING NOC RN.
--- NOTE | 2023-01-26 17:54 | NUR ---
FAMILY UPDATE: SPOKE TO PT'S SON, NOMAN, WITH PT'S PERMISSION. UPDATED ON PT'S CURRENT CONDITION AND WITHDRAWAL STATE. NOMAN STATES THAT PT MOVED IN WITH HER BOYFRIEND AFTER BEING DISCHARGED FROM THE HOSPITAL RECENTLY AND STARTED DRINKING AGAIN. HE STATES THAT THE PT DENIES DRINKING ALCOHOL, BUT HE CALLS TO CHECK ON HER AND SHE IS SLURRING HER WORDS/APPEARS TO BE INTOXICATED. NOMNA PLANS TO VISIT PT ONCE WITHDRAWAL HAS SUBSIDED.
[2023-01-27 03:32] VITALS: BP 123/74
[2023-01-27 03:42] LABS: BASOPHILS ABSOLUTE AUTO 0.13 K/mm3 (0.00-0.23); BASOPHILS PERCENT AUTO 3 % (0-2); EOSINOPHILS ABSOLUTE AUTO 0.09 K/mm3 (0.00-0.68); EOSINOPHILS PERCENT AUTO 2 % (0-6); Hematocrit 28.6 % (33.0-51.0); Hemoglobin 9.3 g/dL (11.5-16.0); IMMATURE GRAN ABSOLUTE AUTO 0.01 K/mm3 (0.00-0.10); IMMATURE GRAN PERCENT AUTO 0 % (0-1); LYMPHOCYTES ABSOLUTE AUTO 1.68 K/mm3 (0.84-5.20); LYMPHOCYTES PERCENT AUTO 34 % (21-46); MONOCYTES ABSOLUTE AUTO 0.36 K/mm3 (0.16-1.47); MONOCYTES PERCENT AUTO 7 % (4-13); Mean Corpuscular HGB 28.9 pg (26.0-34.0); Mean Corpuscular HGB Conc 32.5 g/dL (31.5-36.5); Mean Corpuscular Volume 89 fL (80-100); Mean Platelet Volume 10.7 fL (9.1-12.4); NEUTROPHILS ABSOLUTE AUTO 2.62 K/mm3 (1.96-9.15); NEUTROPHILS PERCENT AUTO 54 % (41-73); Platelet Count 230 K/mm3 (150-400); RDW Coefficient Variation 12.5 % (11.7-14.2); RDW Standard Deviation 40.5 fL (35.1-46.3); Red Blood Cell Count 3.22 M/mm3 (3.80-5.20); White Blood Cell Count 4.89 K/mm3 (4.00-11.30)
[2023-01-27 04:03] LABS: Albumin, Blood 2.8 g/dL (3.4-5.0); Anion Gap 6 mmol/L (6-16); Blood Urea Nitrogen 8 mg/dL (8-24); Bun/Creatinine Ratio 9.3 (12.0-20.0); CO2, Blood 23 mmol/L (21-32); Calcium, Blood 8.3 mg/dL (8.5-10.1); Chloride, Blood 114 mmol/L (98-108); Creatinine, Blood 0.86 mg/dL (0.40-1.00); Glomerular Filtration Rate 77 (60-); Glucose, Blood 90 mg/dL (70-99); Magnesium, Blood 0.9 mg/dL (1.6-2.4); Phosphorus, Blood 3.9 mg/dL (2.5-4.9); Potassium, Blood 3.3 mmol/L (3.5-5.5); Sodium, Blood 143 mmol/L (136-145)
--- NOTE | 2023-01-27 04:46 | NUR ---
SHIFT SUMMARY PT A&Ox2, STATES THAT SHE IS AT THE HOSPITAL BUT IS ASKING QUESTIONS AND MAKING STATEMENTS THAT DO NOT CORRELATE WITH BEING IN THE HOSPITAL. BP STABLE, SINUS 80's, DENIES CP/PRESSURE. SpO2> 92% RA, DENIES SOB. PT 1 ASSIST TO BSC, CONTINENT OF URINE AND BOWEL. CIWA RANGING 8-16, MANAGED PER EMAR. NO C/O PAIN. NO OTHER EVENTS, WILL REPORT TO ONCOMING RN.
[2023-01-27 07:30] VITALS: BP 131/69
[2023-01-27 10:50] LABS: Bun/Creatinine Ratio 9.9 (12.0-20.0); Calcium, Blood 8.4 mg/dL (8.5-10.1); Creatinine, Blood 0.91 mg/dL (0.40-1.00); Magnesium, Blood 1.2 mg/dL (1.6-2.4); Potassium, Blood 4.3 mmol/L (3.5-5.5)
[2023-01-27 11:50] VITALS: BP 118/95
[2023-01-27 15:03] VITALS: BP 143/82
--- NOTE | 2023-01-27 17:19 | NUR ---
END OF SHIFT NOTE PT A&OX2-3 T/O SHIFT, UNSURE OF LOCATION AT TIMES AND SITUATION. CONTINUES TO MAKE STATEMENTS THAT DO NOT CORRELATE WITH BEING IN THE HOSPITAL. HR 60-80'S, NO TELEMETRY. SBP 110-140'S, DENIES CHEST PAIN/PRESSURE. SPO2 >95% ON RA, NO VISIBLE S/SX OF SOB. 1P ASSIST TO BSC, CONTINENT. MINIMAL PO INTAKE, PT WAS ABLE TO DRINK PROTEIN SHAKE THIS AM. CIWA RANGING FROM 9-15, MEDICATING PER EMAR. AVASURE CAMERA IN PLACE FOR PT SAFETY. NO OTHER EVENTS THIS SHIFT. CALL LIGHT WITHIN REACH, BED IN LOWEST POSITION. BED ALARM ON. WILL REPORT TO ONCKAYLIN GOFF RN.
[2023-01-27 19:48] VITALS: BP 138/82
--- NOTE | 2023-01-28 04:43 | NUR ---
SHIFT SUMMARY PT A/OX2-3, PLEASANTLY CONFUSED. PT ANSWERS SOME QUESTIONS APPROPIATETLY, MUMBLES NONSENSICALY AT TIMES. CIWAS 4-5 TONIGHT PT SLEPT FOR MAJORITY OF SHIFT. VSS THROUGHOUT SHIFT WITH O2 SATS IN THE 90'S ION RA. NO REPORT OF CHEST PAIN/PRESURE THROUGHOUT SHIFT. NO REPORT OF SOB/DYSPNEA THROUGHOUT SHIFT. PT INDEPENDENT IN BED. CAMERA IN PLACE WITH BED ALARM, NO ALARMS DURING SHIFT. PT COOPERATIVE OF CARE. BED IN LOWEST POSITION, CALL LIGHT WITHIN REACH.
[2023-01-28 05:24] VITALS: BP 124/88
[2023-01-28 08:30] VITALS: BP 134/87
--- NOTE | 2023-01-28 08:37 | NUR ---
Alba is sleeping, but awakens when spoken to. She doesn't open her eyes readily, but answers questions appropriately and is cooperative. NS infusing at 50 cc/hour via LAC IV. She declined breakfast this morning, appears to be too sleepy at this time for PO intake. Vital signs are stable. No tremors, no diaphoresis, no anxiety nor confusion noted.
--- NOTE | 2023-01-28 09:11 | NUR ---
When fully awake, pt's mentation is fully appreciated. She is awake, sitting on the side of the bed. States that they went to a hemp festival last night, and then back to the hospital. States she has been here in hospital for about a month. She says that it is 2022, the season is . Says that she is going to the store today, and then will get some stuff for us here. She is directable, but very slow and needs reminders for basic steps of care, such as toileting. Had to be reminded to wipe herself, but she thought that she had already done it. She is not anxious, and is cooperative. Ate a small amount of breakfast.
[2023-01-28 09:12] LABS: Bun/Creatinine Ratio 6.4 (12.0-20.0); Calcium, Blood 8.5 mg/dL (8.5-10.1); Creatinine, Blood 0.93 mg/dL (0.40-1.00); Magnesium, Blood 1.5 mg/dL (1.6-2.4); Potassium, Blood 3.8 mmol/L (3.5-5.5)
--- NOTE | 2023-01-28 11:04 | NUR ---
Bedside shift report given to SIGRID Sow. The pt is awake, alert and pleasantly conversant. BEd alarm is on and Avasure is active.
--- NOTE | 2023-01-28 12:41 | NUR ---
Assumed care of patient at approx 1030. Pt alert, oriented X2. Other jones this rn agrees with the previous procurement internship. ciwa of 5. Report given to rn assuming care of patient.
--- NOTE | 2023-01-28 13:16 | NUR ---
LATE ENTRY/1241: RECEIVED REPORT FROM FILTERS ASSEMBLER. 1305: RECEIVED PT TO ROOM 348. PLACED IN BED, MADE COMFORTABLE, ORIENTED TO ROOM & UNIT ROUTINE. AGREE WITH PREVIOUS DIRECTOR BUSINESS TRAVEL.
[2023-01-28 18:08] VITALS: BP 169/93
[2023-01-28 18:15] VITALS: BP 169/93
[2023-01-28 18:29] LABS: Base Excess Venous -3.7 mmol/L; Bicarbonate Venous 21.5 mmol/L (24.0-30.0); PCO2 Venous 39.4 mmHg (38-42); pH Blood Venous 7.35 (7.34-7.37)
[2023-01-28 18:57] LABS: Albumin, Blood 3.1 g/dL (3.4-5.0); Anion Gap 4 mmol/L (6-16); Blood Urea Nitrogen 7 mg/dL (8-24); Bun/Creatinine Ratio 7.1 (12.0-20.0); CO2, Blood 24 mmol/L (21-32); Calcium, Blood 8.8 mg/dL (8.5-10.1); Chloride, Blood 110 mmol/L (98-108); Creatinine, Blood 0.98 mg/dL (0.40-1.00); Glomerular Filtration Rate 66 (60-); Glucose, Blood 94 mg/dL (70-99); Magnesium, Blood 1.8 mg/dL (1.6-2.4); Phosphorus, Blood 1.8 mg/dL (2.5-4.9); Potassium, Blood 4.3 mmol/L (3.5-5.5); Sodium, Blood 138 mmol/L (136-145)
--- NOTE | 2023-01-28 19:21 | NUR ---
SHIFT SUMMARY AT APPROX 1815 DIRECTOR OF INSTITUTIONAL GIVING FOUND PT LYING ON THE FLOOR IN HER ROOM AT THE BEDSIDE. RAPID RESPONSE CALLED. NECK BRACE APPLIED, VS OBTAINED, BP SLIGHTLY ELEVATED, PT PICKED UP WITH BLANKET X 3-4 ASSIST AND PLACED BACK IN BED WHILE HEAD AND NECK HELD STABLE WITH NECK BRACE IN PLACE. ORDERS RECEIVED FOR LABS, STAT HEAD & NECK CT SCAN. PT ABLE TO QUIETLY & SLOWLY RESPOND TO QUESTIONS ASKED. PT WENT TO CT AT APPROX 1840. VEST RESTRAINT NOT YET INITIATED, WAITING ON CT SCAN REPORT BEFORE ROLLING PT SIDE TO SIDE TO SECURE VEST. REPORT GIVEN TO [facility] NURSE.
[2023-01-28 19:47] VITALS: BP 170/120
--- NOTE | 2023-01-29 02:24 | NUR ---
PT BACK FROM CT A/O IN PAIN LEFT SHOULDER, PT QUICKLY FELL ASLEEP. CT SHOWED NO INJURY FROM FALL, NECK BRACE WAS REMOVED AND PT WAS ASSISTED TO BATHROOM, ONE PERSON ASSIST, WAS STABLE ON FEET AND APPROPRIATE, DUE TO FALL HX PT WAS PLACED WITH NORMA FOR THE EVENING. I ASK PT WHO IN HER FAMILY I SHOULD CALL AND SHE SAID BOY FRIEND DELANEY. I TRIED CALLING DELANEY BUT NO ANSWER AND NO VOICE MAIL. PT STATED THAT SHE DIDNT WANT TO SCARE DAD ABOUT FALL AND SHE WOULD PERSONALLY CALL TOMORROW. PT SLEEPING COMFORTABLY
[2023-01-29 05:42] VITALS: BP 150/98
[2023-01-29 06:32] LABS: Bun/Creatinine Ratio 6.5 (12.0-20.0); Calcium, Blood 8.1 mg/dL (8.5-10.1); Creatinine, Blood 0.93 mg/dL (0.40-1.00); Magnesium, Blood 1.4 mg/dL (1.6-2.4); Potassium, Blood 3.7 mmol/L (3.5-5.5)
[2023-01-29 08:00] VITALS: BP 165/110
[2023-01-29 12:00] VITALS: BP 119/85
[2023-01-29 15:40] VITALS: BP 118/86
--- NOTE | 2023-01-29 17:13 | NUR ---
SHIFT SUMMARY PT AxOx2-3 WITH FREQUENT CONFUSION/FORGETFULNESS AND NEEDING REORIENTATION. PT'S BOYFRIEND WAS IN FOR VISIT TODAY, AND STATES HER MENTATION IS WAY OFF HER NORMAL STATUS. TODAY'S CIWA =7. PT HAS BEEN IN A NORMA VEST RESTRAINT THIS SHIFT D/T IMPULSIVE BEHAVIOR R/T GETTING OOB UNSAFELY. PT HAS RECENT HX OF REPETITIVE FALLS INCLUDING A FALL AT SHIFT CHANGE YESTERDAY. PT DID SEEM TO BE MORE COMFORTABLE AFTER TRANFERING TO RECLINER. PT ALSO HAD BED BATH TODAY. SHE IS CURRENTLY SITTING UP IN RECLINER WATCHING TV. RESTRAINT ORDER RENEWED. PT HAS CALL LIGHT IN REACH. DENIES ANY NEEDS AT THIS TIME. CURRENT PLAN IS FOR POSS DC TO SNF FOR REHAB WHEN STABLE.
[2023-01-29 21:24] VITALS: BP 132/82
[2023-01-30 04:38] VITALS: BP 130/86
[2023-01-30 06:02] LABS: Albumin, Blood 3.5 g/dL (3.4-5.0); Anion Gap 9 mmol/L (6-16); Blood Urea Nitrogen 8 mg/dL (8-24); Bun/Creatinine Ratio 9.1 (12.0-20.0); CO2, Blood 22 mmol/L (21-32); Calcium, Blood 9.5 mg/dL (8.5-10.1); Chloride, Blood 108 mmol/L (98-108); Creatinine, Blood 0.88 mg/dL (0.40-1.00); Glomerular Filtration Rate 75 (60-); Glucose, Blood 99 mg/dL (70-99); Magnesium, Blood 1.6 mg/dL (1.6-2.4); Phosphorus, Blood 3.3 mg/dL (2.5-4.9); Potassium, Blood 3.9 mmol/L (3.5-5.5); Sodium, Blood 139 mmol/L (136-145)
--- NOTE | 2023-01-30 06:39 | NUR ---
SUMMARY: PT WAS VERY CONFUSED THIS SHIFT. SHE WAS ORIENTED TO SELF ONLY, LACKED SITUATIONAL AWARENESS, WAS DISORIENTED TO PLACE AND DIDN'T UNDERSTAND LIMITATIONS. SHE WAS FIXATED W/CONCERN FOR HER DOG AND THE NEED TO RUN ERRANDS/PERFORM CHORES. PT REQ'D CONSTANT REORIENTATION AND REASSURANCE BUT SHE REMAINED ANXIOUS, FIGITY AND IMPULSIVE MAJORITY OF NOCTE. SHE REPEATEDLY WOULD ATTEMPT TO UNTIE AND REMOVE NORMA VEST AND RESTRAINT NEEDED TO BE REPLACED REGULARLY T/O SHIFT. CAMERA MONITORING IS IN PLACE AND ALARMS SOUNDED FREQUENTLY FOR STAFF ASSIST. SCHEDULED MEDS WERE MOSTLY INEFFECTIVE AT CALMING HER OR PROMOTING REST. MD MADE AWARE AND ATIVAN 0.5MG IV X1 WAS RX'D AND RECIEVED FOR IMPROVED RELIEF OF ANXIETY AND SHE EVENTUALLY GOT SOME SLEEP. NS INFUSES VIA PG AND SNACKS PROVIDED AD GISSELLE. NO ACUTE CHANGES, VSS/AFEBRILE. CIWA WAS 7 FOR ANXIETY, AGGITATION AND DELIRIU. WCTM AND REPORT TO DAY RN.
--- NOTE | 2023-01-30 07:30 | NUR ---
ASSUMED CARE: PT RESTING IN RECLINER, NORMA VEST IN PLACE. NO ACUTE NEEDS OR CONCERNS AT THIS TIME.
[2023-01-30 07:38] VITALS: BP 118/86
[2023-01-30 16:35] VITALS: BP 102/89
--- NOTE | 2023-01-30 18:29 | NUR ---
SHIFT SUMMARY: PT REMAINS IN NORMA VEST. IMPULSIVE AND DIFFICULT TO REDIRECT. UP TO COMMODE FOR TOILETING. CONFUSED. AWAITING DC PLACEMENT.
[2023-01-30 19:21] VITALS: BP 145/86
[2023-01-31 06:15] VITALS: BP 158/101
--- NOTE | 2023-01-31 06:48 | NUR ---
Shift Summary Pt highly confused and impulsive while awake, determined to get out of bed and accomplish one of several tasks. Not able to re-orient. Once she is asleep she is very lethargic and difficult to fully arouse. Bowie in place for patient safety. No c/o pain or nausea. AOx2.
[2023-01-31 09:40] VITALS: BP 137/73
[2023-01-31 15:34] VITALS: BP 143/91
--- NOTE | 2023-01-31 18:15 | NUR ---
SHIFT SUMMARY PT TAKEN OUT OF NORMA RETRAINT THIS MORNING. PT HAS REMAINED OUT OF VEST AND IS FOLLOWING DIRECTIONS WELL THIS SHIFT. PT CONTINUES TO BE DISORIENTED AND CONFUSED. PT THOUGHT IT WAS HER BIRTHDAY THIS AFTERNOON AND STATED IT WAS [birth year]. PTS ACTUAL BIRTHDAY IS [birth year]. PT THEY STATED "OH I THINK IM CONFUSED". PT SLEPT THROUGH LUNCH. UP TO CHAIR FOR DINNER. PT REFUSED BREAKFAST & LUNCH. ENCOURAGING PO INTAKE FOR DINNER NOW AND PATIENT IS CURRENTY EATING SOME. NO OTHER ACUTE CHANGES IN ASSESSMENT AT THIS TIME. VS REIVEWED. CALL LIGHT IN REACH. DENIES OTHER NEEDS AT THIS TIME. CALL LIGHT IN REACH.
[2023-01-31 19:39] VITALS: BP 113/74
[2023-01-31 22:28] VITALS: BP 133/82
--- NOTE | 2023-01-31 23:35 | NUR ---
HOSPITALIST CALLED-PT HAS HAD AN ELEVATED PULSE GREATER THAN 100 BPM HOSPITALIST JARON CONTACTED; TO CHECK LAST EKG AND IF AFIB CALL BACK, HE WOULD EXPECT FOR A PT WHO HAS ETOH WITHDRAWL TO BE TACHY. TO CONTINUE TO MONITOR PER PROTOCOL. PT ASYMPTOMATIC.
[2023-02-01 04:14] VITALS: BP 138/84
--- NOTE | 2023-02-01 06:11 | NUR ---
SHIFT SUMMARY PT IS ALERT TO SELF, AND PLACE. PT CIWA HAS REMAINED BELOW 8 AND IN REPORT PTS LAST DRINK WAS 8-9 DAYS AGO. PT HAD SOME ANXIETY-MEDICATED PER EMAR. PT DENIES CHEST PAIN/PRESSURE/TIGHTNESS. PT HAS BEEN PLEASANT AND COOPERATIVE WITH CARE. TRANSFERING PT TO COMMODE AND IN TO BED REQUIRED 2 PERSON ASSIST WITH GAIT BELT AND FWW, PT NOT WANTING TO STAND STRAIGHT. PT SLEPT WELL TONIGHT-RESPIRATIONS EQUAL AND UNLABORED. PT HAS VIRTUAL MAT ROLLER ON AND RUNNING IN ROOM. PT A LITTLE ANXIOUS THIS AM WORRIED ABOUT HER BROTHER DOING BAD THINGS. REORIENTED PT. NO S/S OF DISTRESS NOTED. BED IS LOCKED IN THE LOWEST POSITION WITH CALL LIGHT IN REACH.
[2023-02-01 07:31] VITALS: BP 138/87
[2023-02-01 09:26] LABS: Hematocrit 30.9 % (33.0-51.0); Hemoglobin 10.2 g/dL (11.5-16.0)
[2023-02-01 09:57] LABS: Bun/Creatinine Ratio 14.9 (12.0-20.0); Calcium, Blood 9.2 mg/dL (8.5-10.1); Creatinine, Blood 1.01 mg/dL (0.40-1.00); Magnesium, Blood 1.4 mg/dL (1.6-2.4); Potassium, Blood 3.7 mmol/L (3.5-5.5); Thyroid Stimulating Hormone 3.07 uIU/mL (0.360-4.800)
--- NOTE | 2023-02-01 10:03 | NUR ---
VIRTUAL TREASURY MANAGER DISCONTINUED PATIENT IS NOT EXHIBITING BEHAVIORS THAT WARRANT ITS CONTINUE USE.
[2023-02-01 16:14] VITALS: BP 133/66
--- NOTE | 2023-02-01 16:43 | NUR ---
SHIFT SUMMARY: NO ACUTE EVENTS. C/O PAIN IN LUE, LLQ, AND LLE; RECEIVED NEW ORDER FOR TRAMADOL, WHICH PT STATED DID NOT WORK AT ALL, BUT SHE HAD BEEN SOFTLY MOANING BEFORE AND STOPPED AFTER MEDICATION GIVEN. MAG 1.4 THIS MORNING, REPLACED. TOOK TWO PEOPLE TO [place] [facility] [place]; SHE WAS UNABLE TO MAINTAIN AN UPRIGHT POSITION WHEN SITTING ON EOB. VIRTUAL MAIL MANAGER D/C'D. DECLINED NICOTINE PATCH. DETECTIVE BUREAU CHIEF HAD SLOAN CONVERSATION WITH HER THIS AFTERNOON ABOUT WHERE SHE IS HEADED IF SHE DOES NOT START EATING, DRINKING, AND MOVING. DID NOT EAT ANY OF HER MEALS, EVEN WHEN UNIT SECY TRIED TO FEED HER. DRINKING A LITTLE WATER.
[2023-02-01 19:16] VITALS: BP 93/82
--- NOTE | 2023-02-02 04:07 | NUR ---
SHIFT SUMMARY NOC PT A/O TO SELF AND PLACE. PLEASANT AND COOPERATIVE WITH CARE. NO ACUTE CHANGES TO REPORT. PT SLEPT ENTIRE SHIFT. PT ABLE TO DRINK FLUIDS WITH EVENING RX PASS WITHOUT ISSUE. PT IS EXTREMELY WEAK AND DECONDITIONED. PT HAS NO PLAN GOING FORWARD CURRENTLY DUE TO NOT PARTICIPATING WITH PT/OT FOR REHAB TO GAIN STRENGTH. LTC BEING DISCUSSED PT CANNOT CARE FOR SELF DUE TO DECONDITIONING. PT HAS PG MISSY THAT FLUSHES AND DRAWS, BUT IS POSITIONAL FOR BOTH. PT IS CURRENTLY RESTING WITH BED ALARM ON, BED IN LOWEST POSITION, AND CALL LIGHT WITHIN REACH.
[2023-02-02 04:19] VITALS: BP 129/71
[2023-02-02 06:09] LABS: Bun/Creatinine Ratio 19.2 (12.0-20.0); Calcium, Blood 9.1 mg/dL (8.5-10.1); Creatinine, Blood 0.99 mg/dL (0.40-1.00); Magnesium, Blood 1.8 mg/dL (1.6-2.4); Potassium, Blood 3.7 mmol/L (3.5-5.5)
--- NOTE | 2023-02-02 06:19 | NUR ---
SHIFT SUMMARY NOC PT A/O TO SELF AND PLACE. PLEASANT AND COOPERATIVE WITH CARE. PT LETHARGIC AND SLEPT ENTIRE SHIFT. PT ABLE TO DRINK FLUIDS WITH EVENING RX PASS, BUT HAD ISSUE WITH SWALLOWING RX DUE TO LETHARGY. PT IS EXTREMELY WEAK AND DECONDITIONED. PT HAS NO PLAN GOING FORWARD CURRENTLY DUE TO NOT PARTICIPATING WITH PT/OT FOR REHAB TO GAIN STRENGTH. LTC BEING DISCUSSED PT CANNOT CARE FOR SELF DUE TO DECONDITIONING. PT HAS PG MISSY THAT FLUSHES AND DRAWS, BUT IS POSITIONAL FOR BOTH. PT IS CURRENTLY RESTING WITH BED ALARM ON, BED IN LOWEST POSITION, AND CALL LIGHT WITHIN REACH.
[2023-02-02 07:42] VITALS: BP 138/82
[2023-02-02 15:52] VITALS: BP 126/75
--- NOTE | 2023-02-02 18:18 | NUR ---
SHIFT SUMMARY: NO ACUTE EVENTS. C/O PAIN "ALL OVER", MEDICATED WITH TRAMADOL. WAS VERY WITHDRAWN AND ENDORSED DEPRESSION THIS MORNING, BUT SHE PERKED UP IN THE LATE AFTERNOON, NOT C/O PAIN, WANTING TO GET UP AND GET DRESSED, ASKING ABOUT HER FRIENDS. ON ROOM AIR. STILL NOT EATING, DRINKING VERY LITTLE. DID NOT REALLY PARTICIPATE WITH PT/OT TODAY, VERY WEAK IN BLE, POOR CORE STRENGTH.
[2023-02-02 20:02] VITALS: BP 143/86
--- NOTE | 2023-02-03 02:05 | NUR ---
SHIFT SUMMARY NOC PT A/O TO SELF. PLEASANTLY CONFUSED AND COOPERATIVE WITH CARE. NO ACUTE CHANGES TO REPORT. PT ABLE TO TAKE EVENING RX WITHOUT ISSUE. PT STILL EXTREMELY DECONDITIONED AND REQUIRES ALMOST TOTAL CARE BY TWO NURSING STAFF FOR REPOSITIONING AND CHANGING ATTENDS. PT HAS NOT HAD ANY C/O OF PAIN SO FAR DURING SHIFT. PT/OT RECOMMENDS SNF PLACEMENT FOR PT SO THAT THEY CAN GET STRONGER. LIBRIUM DISCONTINUED DURING DAY SHIFT. PT IS CURRENTLY RESTING WITH BED ALARM ON, BED IN LOWEST POSITION, AND CALL LIGHT WITHIN REACH.
[2023-02-03 03:15] VITALS: BP 135/74
[2023-02-03 07:16] VITALS: BP 130/82
[2023-02-03 07:19] VITALS: BP 132/82
--- NOTE | 2023-02-03 13:33 | NUR ---
Supportive visit this afternoon. Pt resting in bed, tearful, and confused. Pt states tears are due to seeing "my brother today" and "I need to start over". Re-orientated Pt that it was her son that visited today. Assessed Pt's meaning of needing to start over. She states she needs to change her life style and "get better". Inquired with Pt on steps of initiating this process. Pt struggles with stating things she needs to do. Offered suggestions with Pt being in agreement. Continued supportive visit. Spoke with Pt's Primary RN Kelin, RN Client Development Manager Georgie, and discussed case. Palliative Care will remain available
[2023-02-03 15:54] VITALS: BP 132/75
--- NOTE | 2023-02-03 17:57 | NUR ---
SHIFT SUMMARY PT AOX1, AT TIMES 0. BEDREST PER PT. NO COMPLAINTS FROM THE PT THIS SHIFT, SLEEPING OFF AN ON. SON AT THE BS THIS SHIFT, SPOKE WITH HIM ABOUT HER CURRENT LIVING SITUATION. DELANEY, HER ROOM MATE, IS NOT ALLOWED IN HER ROOM. SIGN PLACED OUTSIDE THE DOOR. BRIEFS CHANGED PRN. CALL LIGHT WITHIN REACH, BED IN THE LOWEST POSITION. WILL REPORT TO ONCOMING NURSE.
[2023-02-03 19:59] VITALS: BP 134/68
[2023-02-04 02:24] VITALS: BP 116/79
--- NOTE | 2023-02-04 05:17 | NUR ---
SHIFT SUMMARY PT A&O X1, COOPERATIVE WITH CARE AND EASILY REDIRECTABLE. CONFUSED ON DIFFERENT OCCASIONS T/O THE NIGHT UPON AWAKING. PT STATES SHE DOES NOT UNDERSTAND HOW SHE GOT HERE SHE WAS GOING TO THE ELECTRICAL STORE. C/D ATTENDS IN PLACE. PT IS CONTNENT/INCONTINENT. USED BEDPAN ONCE T/O THIS SHIFT. TOOK MEDS 1 AT A TIME WITH WATER, WITHOUT DIFFICULTY. BED ALARM SET AND BED IN THE LOWEST POSITION.
[2023-02-04 07:32] VITALS: BP 156/65
[2023-02-04 14:56] VITALS: BP 131/94
--- NOTE | 2023-02-04 16:11 | NUR ---
SHIFT SUMMARY WAITING ON PLACEMENT. PATIENT ACCEPTED ATARAX AND TRAMADOL WITH GOOD RESULTS. PATIENT PERSISTENT THAT SHE IS IN "[facility]", STATING SHE HAS DONE HER MONTH AND IS LEAVING, CAN BE CHALLENGING TO REDIRECT AT TIMES. WILL CONITNUE TO MONITOR
--- NOTE | 2023-02-05 05:47 | NUR ---
SHIFT SUMMARY PT IS A&O2-[address] AND TIME, UNCOOPERATIVE WITH CARE, RA, NO COMPLAINTS OF PAIN OR DISCOMFORT OVERNIGHT, CONTINUE POC
[2023-02-05 07:17] VITALS: BP 130/77
[2023-02-05 15:30] VITALS: BP 133/76
--- NOTE | 2023-02-05 16:45 | NUR ---
SHIFT SUMMARY PATIENT ANXIOUS THIS SHIFT, ACCEPTED ATARAX. C/O SEVERE PAIN IN BILATERAL LEGS, GOOD RELIEF WITH TRAMADOL. PATIENT BED EXITING SEVERAL TIMES THIS SHIFT, AT TIMES REDIRECTABLE. DECLINING MEALS AT TIMES. WILL CONTINUE TO MONITOR
--- NOTE | 2023-02-05 20:10 | NUR ---
PT IS A&O X1, AGITATED TRYING TO LEAVE FACILITY OOB UNSAFELY, PT THREATENING TO PUNCH STAFF, PROVIDER NOTIFIED ORDERS RECIEVED CONTINUE POC
[2023-02-05 20:58] VITALS: BP 119/78
[2023-02-06 02:32] VITALS: BP 127/63
[2023-02-06 07:53] VITALS: BP 118/98
[2023-02-06 15:45] VITALS: BP 118/64
--- NOTE | 2023-02-06 18:09 | NUR ---
SUMMARY- PT WAS NOT IN RESTRAINTS ALL SHIFT UNTIL 1601 WHEN PT WAS GETTING OOB UNSAFELY AND WAS JEPORDIZING HER SAFETY MULTIPLE TIMES. PT AAOX1 THIS SHIFT-SELF. PT MOVED TO BSC X3 THIS SHIFT W/X2 ASSIST, WALKER, AND BELT.
[2023-02-06 19:53] VITALS: BP 140/89
[2023-02-07 01:34] VITALS: BP 152/89
--- NOTE | 2023-02-07 03:56 | NUR ---
shift summary. pt has been very active throughout shift. near constantly pulling at restraints, sporadically able to slip out of restraints. one time early in shift nearly fell oob after slipping out of restraints before staff was able to intervene and situate pt back into bed. administered prn zyprexa early in shift which did not stop pt from pulling at restraints but did seem to prevent her from getting out of them for a time. after a while pt again became agitated. called hospitalist and acquired order for iv haldol which was administered. iv haldol had similar effect as zyprexa as she continued to pull at restraints but was unable to slip out for a time. around this time remote monitoring camera was put into place as well. not long after, pt started to complain of severe feet pain. administered po ultram which did not alleviate pain. notified hospitalist who ordered 10 mg norco Q 6 prn. this appears to have helped alleviate pain more as she is now sleeping in bed. hospitalist also requested 12 lead EKG be completed when/if pt settled down enough for it to be completed. attempted to complete early this morning and while pt did not completely cooperative it was able to be completed and EKG graphic is now in chart. pt has been confused throughout shift but has sporadically been more and less confused throughout morning. able to make needs known. does not use call light but will call out into ma when she needs something. bed locked in lowest position. call light left within reach.
[2023-02-07 04:45] VITALS: BP 117/82
[2023-02-07 08:28] VITALS: BP 126/64
[2023-02-07 16:02] VITALS: BP 122/72
--- NOTE | 2023-02-07 17:45 | NUR ---
SHIFT SUMMARY: PT IS A 62 YEAR OLD FEMALE HERE FOR POST ETOH WITHDRAWAL AND ACUTE KIDNEY INJURY. SHE HAS BEEN CONFUSED AND IMPULSIVE THROUGHOUT THE SHIFT; A DOSE OF HALDOL WAS GIVEN WHEN PATIENT'S IRRITATION INCREASED AND IMPULSIVENESS TO GET UP OUT OF BED/CHAIR INCREASED AND VERBAL REDIRECTION UNSUCCESSFUL. SHE IS WEAK AND ABLE TO STAND/SUPPORT BODY WEIGHT, BUT CAN SIT UP AND ATTEMPT TO GET UP, BUT NOT WITHOUT RISK OF FALL AND SAFETY CONCERNS. PATIENT'S BEST FRIEND CORTES AND CORTES'S BETSEY VISITED TODAY AND SO DID THE PATIENT'S BOYFRIEND DELANEY WITHOUT CONCERN/INCIDENT. SHE HAS BEEN QUIET AFTER VISITORS AND RESTING IN BED, CALL LIGHT WITHIN REACH, AND NO SIGNS OR SYMPTOMS OF DISTRESS. PLAN OF CARE ONGOING.
[2023-02-07 19:52] VITALS: BP 104/68
[2023-02-08 03:25] VITALS: BP 122/66
--- NOTE | 2023-02-08 05:25 | NUR ---
SHIFT SUMMARY 62 YR F ADMITTED ON 01/23/23 FOR [facility]. FULL CODE. PT HAS BEEN VERY CONFUSED THIS SHIFT. SHE BELEIVES SHE IS AT HOME AND NEEDS TO PAY HER BILLS. SHE ALSO SAID SHE WANTED SPAGHETTI AND WHEN TOLD WE DIDN'T HAVE ANY SHE INSISTED SHE DID BECAUSE SHE HAD JUST MADE A POT OF IT. SHE BECAME INCREASINGLY INSISTENT ABOUT GETTING UP AND GOT UPSET AND VERBALLY AGRESSIVE STATING THAT SHE HAD THINGS TO DO. SHE IS A 2 PERSON ASSIST TO THE BATHROOM AND IS EXTREMELY WEAK ON HER FEET. SHE WAS PUT IN A NORMA VEST THIS SHIFT AFTER MULTIPLE ATTEMPTS TO GET UP ON HER OWN AND REDIRECTION WAS NOT AFFECTIVE. EARLY THIS A.M. PT WAS ASSISTED TO THE BATHROOM AND IT WAS EXPLAINED TO HER AGAIN THAT IF SHE WOULD NOT GET UP ON HER OWN THE NORMA VEST COULD BE REMOVED. AFTER ABOUT 30 MIN AND NO ATTEMPT TO GET UP, THE NORMA VEST WAS REMOVED AT 0400.
[2023-02-08 07:46] VITALS: BP 108/64
[2023-02-08 15:14] VITALS: BP 103/65
--- NOTE | 2023-02-08 18:52 | NUR ---
SHIFT SUMMARY: PT IS A 62 YEAR FEMALE HERE RECOVERING FROM ETOH WITHDRAWAL. SHE IS PAST THE PHASE OF WITHDRAWING. SHE IS WORKING ON HER COGNITION AND STRENGTH SINCE SHE HAS HAD GENERALIZED MUSCLE WEAKNESS AND IMPAIRED COGNITION. HER COGNITION HAS BEEN BETTER TODAY, SHE IS ALERT AND ORIENTED TO SELF, PERSON, PLACE, DATE/TIME AND SITUTATION. SHE IS MORE ORIENTED TODAY, LESS CONFUSED AND IS AWARE OF THE SITUATION AND THE PLAN. SHE HAS BEEN COOPERATIVE AND PLEASANT THROUGHOUT THE SHIFT WITH OCASSIONAL OCCURANCES OF GETTING UP WITHOUT STAFF. SHE IS REDIRECTABLE. SHE HAS BEEN EATING AND DRINKING. I VISITED WITH HER SON NOMAN AND DAUGHTER IN [employer] TODAY AND WE DISCUSSED A PLAN; WHICH WOULD BE TO HAVE HER D.C TO SNF FOR REHAB. PATIENT IS ON BOARD. SHE IS SITTING AT THE SIDE OF THE BED, AVASURE IN PLACE, BEDALARM SET, CALL LIGHT WITHIN REACH, NO SIGNS OR SYMPTOMS OF DISTRESS. PLAN OF CARE ONGOING.
[2023-02-08 20:08] VITALS: BP 113/65
--- NOTE | 2023-02-09 04:09 | NUR ---
SHIFT SUMMARY PT IS A&0X3, OFF ON DATE BUT KNEW IT IS 2022. SHE IS CONFUSED AND THINKS SHE IS AT HOME, BUT WHEN ASKED WHERE SHE IS SHE STATES 'HOSPITAL'. NORMOTENSIVE, HR 70'S-80'S, AFEBRILE, O2 SATS >95% ON RA. C/O PAIN IN HER SHOULDERS, BACK AND SEAY, MANAGED WITH PRN TRAMADOL. TOLERATING A REGULAR DIET. X1 ASSIST TO BR WITH FWW AND GAITBELT, PT IS VERY WEAK AND KEPT TRYING TO SIT ON THE FLOOR ON THE WAY TO THE TOILET. VOIDING IN BR. BM X1 THIS SHIFT. CONTINUES TO HAVE AVASURE, AND BED ALARM SET FOR PATIENTS SAFETY. BED IN LOWEST POSITION, CALL LIGHT WITHIN REACH. FIRE SAFETY CHECKS COMPLETE.
[2023-02-09 05:06] VITALS: BP 117/59
[2023-02-09 07:16] VITALS: BP 99/61
--- NOTE | 2023-02-09 18:22 | NUR ---
SHIFT SUMMARY: AYUSH IS A&OX1-2. VSS. PT HAS BEEN CONFUSED OFF AND ON THROUGHOUT THE SHIFT. PT WOKE UP FROM AN AFTERNOON NAP STATING "THE PLANS HAVE CHANGED, MY GUESTS ARE DELAYED", "I ONLY HAVE HALF A LOAF OF BREAD LEFT", AND "I NEED TO USE THE OVEN". STAFF ATTEMPTED TO REDIRECT PT, PT STOOD AND ATTEMPTED TO WALK. STAFF EDUCATED PT ON IMPORTANCE OF RETURNING TO BED D/T SIGNIFICANT FALL RISK AND PT'S INABILITY TO AMBULATE SAFELY THROUGHOUT THE SHIFT. PT BECAME AGITATED WITH STAFF AND REFUSED TO FOLLOW DIRECTIONS. PT STATED THAT CAPSULE FILLING MACHINE OPERATOR "SHOVED ME DOWN IN THE HALLWAY", THEN STATED THAT THE CAPSULE FILLING MACHINE OPERATOR "SHOVED ME INTO THE COMPUTER", ACCUSED STAFF OF BEING DRUNK, AND STATED "SHE PUT HER HANDS ON ME". INSPECTED PT'S BACK AND ARMS, NO LESIONS, BRUISES, OR REDNESS NOTED. VIDEO MONITORING HAS BEEN IN PLACE THROUGHOUT THE SHIFT AND THE BED ALARM. STAFF HAS ENCOURAGED PT TO USE THE CALL LIGHT. PT IS SITTING UP IN BED WITH THE CALL LIGHT IN REACH. WCTM UNTIL REPORT IS GIVEN TO REHAB AID RN.
[2023-02-09 19:30] VITALS: BP 130/75
[2023-02-10 06:42] VITALS: BP 118/84
--- NOTE | 2023-02-10 06:46 | NUR ---
SHIFT SUMMARY PT IS ALERT AND ORIENTED TO SELF. SHE WAS UNCOOPERATIVE WITH CARES. NORMOTENSIVE, HR 70'S, AFEBRILE, O2 SATS >95% ON RA. C/O PAIN IN HER FEET STATES SHE HAS GOUT. STATES SHE NEEDS STEROIDS TO HELP WITH SWELLING. MANAGED WITH PRN TRAMADOL. TOLERATING A REGULAR DIET. X2 ASSIST TO BSC, PT VERY WEAK AND DOES NOT FOLLOW COMMANDS. VOIDING IN BSC, NO BM THIS SHIFT. CONTINUES TO HAVE AVASURE, AND BED ALARM SET FOR PATIENTS SAFETY. BED IN LOWEST POSITION, CALL LIGHT WITHIN REACH. PT WITH INCREASED AGITATION AND NOT FOLLOWING COMMANDS. ADAMENT ABOUT LEAVING HOSPITAL. GAVE PRN IV HALDOL, AND PO ATARAX WITH NO SUCCESS IN DEESCULATION. CALLED SECURITY, ARRIVED AT BEDSIDE. PUT PT IN NORMA VEST. FREQUENT ROUNDING AND SAFETY CHECKS COMPLETED. FIRE SAFETY CHECKS COMPLETED.
[2023-02-10 07:18] VITALS: BP 126/79
[2023-02-10 15:50] VITALS: BP 114/76
[2023-02-10 19:37] VITALS: BP 128/78
--- NOTE | 2023-02-11 05:07 | NUR ---
PT A&O x3, VSS, AFEBRILE. PT HAD A DIFFICULT TIME FALLING ASLEEP. PT EASILY REDIRECTABLE. BED ALARM ON ALL NIGHT FOR SAFETY PT CAN BE IMPULSIVE. CAMERA ON, AND ALERTED CARE STAFF 3x LAST NIGHT. PT VERY UNSTEADY ON FEET WITH TRANSFERS. PT 1-2P SBA TO BSC. NON-SKID SOCKS ON PT. NO BEHAVIORS OVER NIGHT. CALL LIGHT WITHIN REACH. WCTM.
[2023-02-11 05:56] LABS: Hematocrit 27.6 % (33.0-51.0); Hemoglobin 9.1 g/dL (11.5-16.0); Mean Corpuscular HGB 28.6 pg (26.0-34.0); Mean Corpuscular Volume 87 fL (80-100); Mean Platelet Volume 10.5 fL (9.1-12.4); Platelet Count 420 K/mm3 (150-400); RDW Coefficient Variation 13.2 % (11.7-14.2); RDW Standard Deviation 41.9 fL (35.1-46.3); Red Blood Cell Count 3.18 M/mm3 (3.80-5.20); White Blood Cell Count 6.78 K/mm3 (4.00-11.30)
[2023-02-11 06:04] VITALS: BP 129/68
[2023-02-11 06:52] LABS: Bun/Creatinine Ratio 19.5 (12.0-20.0); Calcium, Blood 9.1 mg/dL (8.5-10.1); Creatinine, Blood 0.87 mg/dL (0.40-1.00); Magnesium, Blood 1.4 mg/dL (1.6-2.4); Potassium, Blood 4.3 mmol/L (3.5-5.5)
[2023-02-11 07:28] VITALS: BP 114/73
[2023-02-11 15:26] VITALS: BP 113/73
--- NOTE | 2023-02-11 17:41 | NUR ---
SHIFT SUMMARY, MS WEAVER HAS BEEN ORIENTATED TO HER NAME, TO "HOSPITAL" BUT NOT WHICH ONE OR WHICH TOWN OR THE DATE. SHE IS FORGETFUL OF INSTRUCTIONS AND DOES STAND UP FROM BED AND CHAIR WITHOUT CALLING FOR ASSISTANCE. SHE HAS BED AND CHAIR ALARMS ON AND CAMERA MONITOR IN HER ROOM. SHE HAS WALKED IN THE HALLS WITH GAIT BELT, ONE PERSON ASSIST AND FWW TWICE THIS SHIFT WITH STEADY GAIT. SHE HAS MENTIONED A FEW TIMES THAT HER BOYFRIEND IS ON HIS WAY IN TO TAKE HER HOME BUT HAS HAD NO VISITORS TODAY. SHE C/O MILD HEADACHE IN THE LATER PART OF THE SHIFT BUT REFUSED TYLENOL SHE SAID HER DR TOLD HER NOT TO TAKE IT. SHE DID NOT WANT TO TAKE ULTRAM SHE SAID SHE HADN'T HAD IT BEFORE. GENERALLY SHE DOES NOT C/O ANY PAIN EXCEPT BILATERAL FOOT PAIN WHEN TOUCHED. BED LOW, CALL LIGHT IN REACH.
[2023-02-11 19:32] VITALS: BP 136/85
--- NOTE | 2023-02-11 22:41 | NUR ---
2041: PT SITTING AT THE EDGE OF THE BED, BEGAN TO STAND UP AT BEDSIDE, CAMERA ALARM AND BED ALARM GO OFF. PT BECAME AGGITATED, WALKED TO THE DOOR OF HER ROOM, CARRYING HER PURSE WANTING TO LEAVE. PT YELLED OUT "KETTY" AND "LIANA" SAYING THAT THEY WERE OUTSIDE WAITING TO PICK HER UP. PRN IV HALDOL GIVEN. PT TENSED UP CARE STAFF ATTEMPTED TO HELP HER BACK INTO BED, FISTS AT THE SIDE OF HER BODY. SNACKS AND FLUIDS OFFERED TO PT, SHE DECLINED. PT USED THE BSC, WITH ASSISTANCE FROM 2 CAREGIVERS. 2299: PT SETTLED DOWN, FINALLY LAID DOWN IN BED ALL THE WAY, APPEARS TO BE RESTING IN BED COMFORTABLY. INCREASED CONFUSION WAS NOTED AROUND 1999. PT REMINDED TO USE CALL LIGHT IF SHE NEEDS HELP WITH TRANSFERS, ETC. PT VERY FORGETFUL, UNSURE IF PT WILL REMEMBER TO CALL FOR HELP. FREQUENT SAFETY CHECKS COMPLETED. WCTM.
--- NOTE | 2023-02-12 02:50 | NUR ---
END OF SHIFT SUMMARY PT SLEPT WELL AFTER RECEIVING PRN IV HALDOL. FREQUENT SAFETY CHECKS COMPLETED THROUGHOUT THIS SHIFT. PT UPSET AT CARE STAFF MAKING A COMMENT STATING THAT WE ARE DRUGGING HER. PT ALSO TOLD THIS AUTHOR, "FUCK YOU AND YOUR ASSESSMENT," WHEN ATTEMPTING TO ASK HER SHIFT ASSESSMENT QUESTIONS. NO BEHAVIORS NOTED AFTER PT FELL ASLEEP AT AROUND 2315. BED IN LOWEST POSITION. CALL LIGHT WITHIN REACH. TM.
--- NOTE | 2023-02-12 06:26 | NUR ---
PT CONTINUES TO UNSAFELY GET UP OOB ON HER OWN. SOMEHOW, PT WAS SITTING ON THE EDGE OF THE BED AND STOOD UP, WALKED TO THE CAMERA AND UNPLUGGED IT. THIS AUTHOR WAS ASSISTING ANOTHER RN ACROSS THE GRACIA WITH REPOSITIONING A PT. PT DID NOT FALL, CARE STAFF WAS ABLE TO SAFELY GET PT IN CHAIR AT BEDSIDE, CHAIR ALARM TURNED ON. 0530: PT EDUCATION ON SAFE TRANSFERS PROVIDED. ALSO PT EDUCATION REGARDING PRN MEDICATIONS. PT AGREED TO TAKE ATARAX FOR ANXIETY, AND TRAMADOL WAS GIVEN. PT BECAME FIDGETY. PRN ATARAX AND TRAMADOL GIVEN AND EFFECTIVE. 0615: PT RESTLESS, WANTS TO GET BACK INTO BED. 0730: PT STILL APPEARS TO BE SOUND ASLEEP, EYES CLOSED, RESTING COMFORTABLY. SHIFT REPORT GIVEN TO DAY RNDEB. CARTWRIGHT.
[2023-02-12 07:09] LABS: Bun/Creatinine Ratio 15.8 (12.0-20.0); Calcium, Blood 9.2 mg/dL (8.5-10.1); Creatinine, Blood 0.89 mg/dL (0.40-1.00); Magnesium, Blood 1.8 mg/dL (1.6-2.4); Potassium, Blood 3.9 mmol/L (3.5-5.5)
[2023-02-12 09:26] VITALS: BP 109/56
[2023-02-12 15:25] VITALS: BP 92/57
[2023-02-12 15:27] VITALS: BP 107/70
--- NOTE | 2023-02-12 16:15 | NUR ---
SHIFT SUMMARY MS WEAVER IS FORGETFUL, GETS UP OUT OF BED AND CHAIR WITHOUT USING NURSE CALL SYSTEM. REMINDED ABOUT SAFETY PRECAUTIONS FREQUENTLY. BED AND CHAIR ALARMS IN USE WELL CAMERA IN ROOM. C/O FOOT PAIN, GIVEN COLCHICINE THIS AM WHICH SHE RINKU NOT STATE ANY PARTICULAR DIFFERENCE IN PAIN. RECENT C/O FEET PAIN AND HEADACHE AND PT AGREED TO TAKE ULTRAM, WHICH SHE WAS RELUCTANT TO TAKE EARLIER. WALKED IN HALLS WITH FWW, GAIT BELT AND 1 PESON ASSISTANCE. BED LOW, CALL LIGHT IN REACH
[2023-02-12 19:20] VITALS: BP 108/65
[2023-02-13 04:30] VITALS: BP 112/69
[2023-02-13 07:17] VITALS: BP 94/59
[2023-02-13 08:00] VITALS: BP 126/75
[2023-02-13 15:22] VITALS: BP 104/63
--- NOTE | 2023-02-13 15:44 | NUR ---
SHIFT SUMMARY PT AWAKE DURING SHIFT REPORT, UP OOB TRYING TO GET DRESSED. PT SETTING OFF BED ALARM WANTING TO STAND AND MAKE HER BED. PT IS MUCH MORE STEADY TODAY, THOUGH NEEDING SBA FOR SAFETY. PT ABLE TO WALK OUT IN HALLS WITH P/T TODAY. PT NEEDING TO WEAR HER SHOES FOR STABILITY AND SAFETY. PT HAS DIFFICULTY PUTTING SHOES ON THOUGH, PER THERAPY. PT HAS BEEN PLEASANT AND CO-OP, BUT CAN BE IMPULSIVE. PER REPORT, PT IS MEDICALLY STABLE, WAITING FOR D/C WHEN MEDICAID PAPERWORK CLEARS. RESTING QUIETLY AT THIS TIME, CALL LT IN REACH.
[2023-02-13 20:17] VITALS: BP 112/63
--- NOTE | 2023-02-14 04:23 | NUR ---
SHIFT SUMMARY: PT IS ADMITTED FOR ACUTE KIDNEY INJURY AND IS A FULL CODE. IS ALERT AND ABLE TO MAKE MOST NEEDS KNOWN. DOES HAVE BOUTS OF CONFUSION. ADL S HAVE BEEN 1P LIMITED TO STBY FOR ALL ACTIVITIES THROUGH SHIFT. SHE DID GET UP A COUPLE TIMES DURING THE SHIFT. ONE TIME SHE WAS HELPED TO THE BATH ROOM. ONE TIME SHE WAS TRYING TO THROW SOMETHING AWAY. DURING THIS TIME FRAME THE BED AND THE CAMERA ALARM STARTED. SHE WALKED ACROSS THE ROOM AND UNPLUGGED POWER TO THE CAMERA.
[2023-02-14 05:29] VITALS: BP 115/68
[2023-02-14 07:17] VITALS: BP 108/63
[2023-02-14] MEDS ORDERED: METO25 PO (13:50)
[2023-02-14] MEDS ORDERED: Nicoderm Cq1 EACH TOP (13:51)
[2023-02-14] MEDS ORDERED: DELTASONE20 MG (13:53)
[2023-02-14] MEDS ORDERED: TIOT18 INH (13:55)
--- NOTE | 2023-02-14 15:26 | NUR ---
PT RESTING QUIETLY AT START OF SHIFT. WOKE EASILY FOR CARE. DECLINED MOST OF BREAKFAST AGAIN. SAID SHE IS NOT A BREAKFAST PERSON. DOES LIKE COFFEE WHEN AWAKE. PT CONTINUES TO IMPROVE IN MENTATION AND MOBILITY. UP WITH 1P ASSIST TO BTHRM NEEDED. ABLE TO WALK IN HALLS USING FWW AND SBA ONLY FOR SAFETY. DR BRANDON IN TO SEE PT THIS AM AND DISCUSSED PLAN OF CARE, WELL WALKING PT IN HALLS. PT ABLE TO ANSWER QUESTIONS APPROPRIATELY. PT WANTING TO GO HOME AND ABLE TO PROVIDE FOR HERSELF UNTIL MEDICAID CLEARS. D/C ORDERS PLACED. D/C INSTRUCTIONS REVIEWED WITH PT. MEDS FAXED TO [facility], PER PT REQUEST. PT'S SON NOTIFIED OF D/C AND CAME TO PROVIDE RIDE HOME FOR PT. BELONGING WENT HOME WITH PT.
== END 2023-02-14 14:48 | disposition home health service (06) | DRG 683 ==
LOC: ER 13:29 → PCU 18:50 → MEDS 18:50 → PCU 20:57 → MEDS 01-28 13:03
PROVIDERS: Emergency Medicine; Family Medicine; Hospitalist; Internal Medicine; Nurse Practitioner Acute Care; ADMIT Internal Medicine
PROC: HZ2ZZZZ Detoxification Services for Substance Abuse Treatment (ICD-10-PCS; principal; 2023-01-25)
DX: N17.9 Acute kidney failure, unspecified (principal); E87.1 Hypo-osmolality and hyponatremia; F10.231 Alcohol dependence with withdrawal delirium; F10.288 Alcohol dependence with other alcohol-induced disorder; E83.42 Hypomagnesemia; E03.9 Hypothyroidism, unspecified; D63.1 Anemia in chronic kidney disease; R93.0 Abnormal findings on diagnostic imaging of skull and head, not elsewhere classified; E86.0 Dehydration; K70.30 Alcoholic cirrhosis of liver without ascites; N18.30 Chronic kidney disease, stage 3 unspecified; I12.9 Hypertensive chronic kidney disease with stage 1 through stage 4 chronic kidney disease, or unspecified chronic kidney disease; J45.909 Unspecified asthma, uncomplicated; F17.200 Nicotine dependence, unspecified, uncomplicated; F41.9 Anxiety disorder, unspecified; K21.9 Gastro-esophageal reflux disease without esophagitis; F31.9 Bipolar disorder, unspecified; E87.6 Hypokalemia; Z79.890 Hormone replacement therapy
CPT/HCPCS: 36415; 36416; 70450; 70496; 72125; 80048; 80053; 80069; 82550; 82803; 83735; 84443; 85014; 85018; 85025; 85027; 93005; 93010; 94640; 94664; 94760; 96360-59; 96361; 97110; 97116; 97129; 97162; 97165; 97530; 97535; 99285-25; A9270; C1751; J1630; J2060; J3411; J3475; J3480; J7030; J7050; J7512; Q9967

== ENCOUNTER 2023-04-19 08:06 | Day surgery (SDC) | payer OTHER ==
[~2023-04-19] VITALS: Ht 160 cm; Wt 57.3 kg
[~2023-04-19 08:06] MED LIST changes: +ANORO ELLIPTA1 EACH INH; +DELTASONE20 MG; +FLONASE ALLERG9.9 M2; +Hair, Skin & N1 EACH PO; +KAPSPARGO SPRIN25 MG PO; +Mirtazapine45 M1 PO; +Nicoderm Cq1 EACH TOP; +ONE-A-DAY WOME0.4 MG; +TIOT18 INH
[2023-04-19] MEDS ORDERED: LISI20 (08:34)
[2023-04-19 10:23] VITALS: BP 102/74
== END 2023-04-19 10:25 | disposition home or self-care (01) ==
LOC: ORSCSDS 08:06
PROVIDERS: Internal Medicine Gastroenterology
PROC: 0DBL8ZX Excision of Transverse Colon, Via Natural or Artificial Opening Endoscopic, Diagnostic (ICD-10-PCS; principal; 2023-04-19 09:30)
DX: K92.1 Melena (principal); R19.7 Diarrhea, unspecified; R10.819 Abdominal tenderness, unspecified site; R63.4 Abnormal weight loss; D12.3 Benign neoplasm of transverse colon; Z86.010 Personal history of colon polyps; I10 Essential (primary) hypertension; K74.60 Unspecified cirrhosis of liver; E03.9 Hypothyroidism, unspecified; F31.9 Bipolar disorder, unspecified; F17.210 Nicotine dependence, cigarettes, uncomplicated; Z79.899 Other long term (current) drug therapy
CPT/HCPCS: 88305; J2704; J7120

== ENCOUNTER 2023-07-28 14:35 | Emergency (ER) | payer OTHER ==
[~2023-07-28] VITALS: Ht 160 cm; Wt 56.7 kg
[~2023-07-28 14:35] MED LIST changes: +LISI20
[2023-07-28 15:23] LABS: BASOPHILS ABSOLUTE AUTO 0.11 K/mm3 (0.00-0.23); BASOPHILS PERCENT AUTO 1 % (0-2); EOSINOPHILS PERCENT AUTO 1 % (0-6); Hematocrit 33.9 % (33.0-51.0); Hemoglobin 11.4 g/dL (11.5-16.0); IMMATURE GRAN ABSOLUTE AUTO 0.05 K/mm3 (0.00-0.10); IMMATURE GRAN PERCENT AUTO 1 % (0-1); LYMPHOCYTES ABSOLUTE AUTO 1.91 K/mm3 (0.84-5.20); LYMPHOCYTES PERCENT AUTO 18 % (21-46); MONOCYTES ABSOLUTE AUTO 0.84 K/mm3 (0.16-1.47); MONOCYTES PERCENT AUTO 8 % (4-13); Mean Corpuscular HGB 32.1 pg (26.0-34.0); Mean Corpuscular HGB Conc 33.6 g/dL (31.5-36.5); Mean Corpuscular Volume 96 fL (80-100); Mean Platelet Volume 10.1 fL (9.1-12.4); NEUTROPHILS PERCENT AUTO 72 % (41-73); Platelet Count 180 K/mm3 (150-400); RDW Coefficient Variation 15.4 % (11.7-14.2); RDW Standard Deviation 53.9 fL (35.1-46.3); Red Blood Cell Count 3.55 M/mm3 (3.80-5.20); White Blood Cell Count 10.61 K/mm3 (4.00-11.30)
[2023-07-28 15:38] LABS: Source, Urine Clean Catch
[2023-07-28 15:46] LABS: Appearance, Urine Clear (Clear); Bilirubin, Urine Neg (Neg); Blood, Urine Neg (Neg); Glucose Qualitative, Urine Neg (Neg); Ketones, Urine 1+ (Neg); Leukocyte Esterase, Urine Neg (Neg); Nitrite, Urine Neg (Neg); Protein, Urine 1+ (Neg); Urobilinogen, Urine NORM (Normal)
[2023-07-28 15:55] LABS: Color, Urine Pale Yellow (P-Yellow)
[2023-07-28 15:58] LABS: Albumin, Blood 4.3 g/dL (3.4-5.0); Albumin/Globulin Ratio 1.1 (0.8-1.8); Bilirubin, Total 0.7 mg/dL (0.1-1.0); Bun/Creatinine Ratio 29.9 (12.0-20.0); Calcium, Blood 9.2 mg/dL (8.5-10.1); Creatinine, Blood 0.97 mg/dL (0.40-1.00); Globulin, Blood 3.8 g/dL (2.2-4.0); Potassium, Blood 4.1 mmol/L (3.5-5.5); Total Protein, Blood 8.1 g/dL (6.4-8.2)
[2023-07-28 16:20] VITALS: BP 122/79
== END 2023-07-28 16:30 | disposition home or self-care (01) ==
LOC: ER 14:35
PROVIDERS: Student in an Organized Health Care Education/Training Program
DX: F10.129 Alcohol abuse with intoxication, unspecified (principal); Y90.8 Blood alcohol level of 240 mg/100 ml or more; Z88.8 Allergy status to other drugs, medicaments and biological substances; Z79.899 Other long term (current) drug therapy; E03.9 Hypothyroidism, unspecified; I10 Essential (primary) hypertension; F17.210 Nicotine dependence, cigarettes, uncomplicated
CPT/HCPCS: 80053; 83690; 85025; 86850; 86900; 86901; 93005; 93010; 99285-25

== ENCOUNTER → 2025-01-20 | Outpatient (CLI) | payer OTHER ==
[2025-01-22 05:34] LABS: ANTI-NUCLEAR AB ANA,IGG ELISA None Detected (None Detected)
== END ==
LOC: LAB 13:37 → LAB SHORT 13:37
PROVIDERS: Student in an Organized Health Care Education/Training Program
DX: M1A.0710 Idiopathic chronic gout, right ankle and foot, without tophus (tophi) (principal); M25.50 Pain in unspecified joint; M25.571 Pain in right ankle and joints of right foot
CPT/HCPCS: 84550; 86038